=== PATIENT | female | born 1990 | race Caucasian/White ===

== ENCOUNTER 2020-07-08 13:39 | Outpatient (REF) | payer MEDICAID, SELFPAY ==
--- NOTE | ~2020-07-08 | US_ITS ---
EXAMINATION: PELVIC ULTRASOUND CLINICAL INFORMATION: Pelvic pain COMPARISON: Previous pelvic ultrasound May [address] of the abdomen and pelvis March 2014 TECHNIQUE: Transabdominal and transvaginal pelvic ultrasound was performed. Transvaginal exam was performed for better visualization of the uterus and ovaries. FINDINGS: The uterus is anteverted and measures 8 x 3 x 4.3 cm in dimension. No focal uterine lesion is seen. Endometrial thickness is normal measuring 0.7 cm. The cervix is normal appearing. The right ovary measures 3.5 x 2.1 x 3.7 cm. There is a 2.2 x 1.7 x 1.9 cm complex right ovarian cyst with thick echogenic wall and thick septation. The left ovary measures 4.6 x 2.6 x 2.4 cm and is normal-appearing. There is a small amount of fluid in the pelvis. US/US transvaginal IMPRESSION: 2.2 x 1.7 x 1.9 cm complex right ovarian cyst. Small amount of fluid in the pelvis.
--- NOTE | ~2020-07-08 | US_ITS ---
EXAMINATION: PELVIC ULTRASOUND CLINICAL INFORMATION: Pelvic pain COMPARISON: Previous pelvic ultrasound May [address] of the abdomen and pelvis March 2014 TECHNIQUE: Transabdominal and transvaginal pelvic ultrasound was performed. Transvaginal exam was performed for better visualization of the uterus and ovaries. FINDINGS: The uterus is anteverted and measures 8 x 3 x 4.3 cm in dimension. No focal uterine lesion is seen. Endometrial thickness is normal measuring 0.7 cm. The cervix is normal appearing. The right ovary measures 3.5 x 2.1 x 3.7 cm. There is a 2.2 x 1.7 x 1.9 cm complex right ovarian cyst with thick echogenic wall and thick septation. The left ovary measures 4.6 x 2.6 x 2.4 cm and is normal-appearing. There is a small amount of fluid in the pelvis. US/US pelvic complete IMPRESSION: 2.2 x 1.7 x 1.9 cm complex right ovarian cyst. Small amount of fluid in the pelvis.
== END 2020-07-08 13:40 | disposition home or self-care (01) ==
LOC: HO.US 13:39
PROVIDERS: Visit Provider Internal Medicine
DX: R10.2 Pelvic and perineal pain (principal)
CPT/HCPCS: 76830; 76856

== ENCOUNTER 2020-10-06 16:14 | Outpatient (REF) | payer MEDICAID, SELFPAY ==
--- NOTE | ~2020-10-06 | XR_ITS ---
EXAMINATION: XR CERVICAL SPINE CLINICAL INFORMATION: Left skull numbness. COMPARISON: None. TECHNIQUE: 5 views of the cervical spine were obtained. FINDINGS: No prevertebral soft tissue swelling, fractures or subluxations are seen. There is some minimal disc space narrowing seen from C4 through C7. No fractures are seen. Foramina are widely patent bilaterally. XR/XR cervical spine 4V IMPRESSION: Mild degenerative changes seen with some minimal disc space narrowing as described above.
== END 2020-10-06 16:15 | disposition home or self-care (01) ==
LOC: HO.XRAY 16:14
PROVIDERS: PCP Internal Medicine; Visit Provider Emergency Medicine
DX: R20.0 Anesthesia of skin (principal)
CPT/HCPCS: 72050

== ENCOUNTER 2020-12-04 10:33 | Emergency (ER) | payer MEDICAID, SELFPAY ==
--- NOTE | ~2020-12-04 | US_ITS ---
EXAMINATION: US PELVIS CLINICAL INFORMATION: Pain, assess for torsion COMPARISON: 07/08/2020 TECHNIQUE: Ultrasound of the pelvis is performed using both transabdominal and transvaginal transducers along with Doppler. Transvaginal imaging is performed due to inadequate visualization transabdominally. FINDINGS: Uterus: The uterus is anteverted and measures 9.3 x 3.6 x 5.2 cm. No focal lesion The double wall endometrial thickness is 14 mm. The uterus is smooth in contour and has normal myometrial echogenicity. No visible fibroid. Adnexa: Both ovaries are visualized. There is normal color flow to the adnexa. There is no ovarian torsion. There is no pelvic ascites or fluid collection. Right ovary measures 14 mL in an a left ovarian volume measures 19 mL. There is normal arterial and venous flow seen and there is no evidence for any pathologic adnexal lesions. There are follicles noted. Trace physiologic free fluid in the cul-de-sac. US/US pelvic ovarian doppler IMPRESSION: No evidence of any ovarian active torsion or mass.
--- NOTE | ~2020-12-04 | US_ITS ---
EXAMINATION: US PELVIS CLINICAL INFORMATION: Pain, assess for torsion COMPARISON: 07/08/2020 TECHNIQUE: Ultrasound of the pelvis is performed using both transabdominal and transvaginal transducers along with Doppler. Transvaginal imaging is performed due to inadequate visualization transabdominally. FINDINGS: Uterus: The uterus is anteverted and measures 9.3 x 3.6 x 5.2 cm. No focal lesion The double wall endometrial thickness is 14 mm. The uterus is smooth in contour and has normal myometrial echogenicity. No visible fibroid. Adnexa: Both ovaries are visualized. There is normal color flow to the adnexa. There is no ovarian torsion. There is no pelvic ascites or fluid collection. Right ovary measures 14 mL in an a left ovarian volume measures 19 mL. There is normal arterial and venous flow seen and there is no evidence for any pathologic adnexal lesions. There are follicles noted. Trace physiologic free fluid in the cul-de-sac. US/US pelvic and transvaginal IMPRESSION: No evidence of any ovarian active torsion or mass.
[2020-12-04 11:48] VITALS: BP 102/54; PULSE 78; RESP 18; TEMP 36.8; O2SAT 98; BMI 23.8
--- NOTE | 2020-12-04 11:49 | ED.ABDPAIN ---
HPI - Abdominal Pain General Chief Complaint: Abdominal Pain Stated Complaint: abd pain Time Seen by Provider: 12/04/20 11:36 Source: patient Mode of arrival: ambulatory Limitations: no limitations History of Present Illness HPI narrative: 30 y/o female who is , and who is actively wanting to be , presents with 1 day of lower abdominal pain. Reports a crampy heavy feeling in her pelvic area. No fevers, no nausea or vomiting. Patient is sexually active without control. Reports clear vaginal discharge. No concerns for STDs. Reports normal bowel movements, no dysuria. She has history of ovarian cyst, states this feels similar. No abdominal surgeries. MD elicited complaint: abdominal pain Pertinent past history: other (Ovarian cyst) Onset (ago): day(s) (1) Pain Consistency: constant Location: pelvis Severity: moderate Quality: cramping Radiation: none Migration to: no migration Exacerbating factors: nothing Relieving factors: nothing Associated symptoms: denies other symptoms Related Data Date of Last Menstrual Period: 11/22/20 Patient : No Previous Rx's Medication Instructions Recorded doxycycline hyclate 100 mg capsule 100 mg PO BID 14 Days #28 cap 12/04/20 ibuprofen 600 mg tablet 600 mg PO Q8H PRN #30 tab 12/04/20 metronidazole 500 mg tablet 500 mg PO BID 14 Days #28 tab 12/04/20 Allergies Allergy/AdvReac Type Severity Reaction Status Date / Time No Known Allergies Allergy Unverified 01/02/20 17:46 [No Known Allergies*] Review of Systems Review of Systems Constitutional : No Weight loss, No Fever, No Chills, No Night Sweats,No Fatigue, No Malaise ENT/Mouth : No Hearing loss, No Ear Pain, No Nasal Congestion, NoSinus Pain, No Hoarseness, No sore throat, No Rhinorrhea, NoSwallowing Difficulty Eyes: No Eye Pain, No Swelling, No Redness, No Foreign Body, NoDischarge, No Vision Changes Cardiovascular : No Chest Pain, No SOB, No Dyspnea on Exertion, NoOrthopnea, No Edema, No Palpitations Respiratory : No Cough, No Sputum, No Wheezing, No Smoke Exposure, No Dyspnea Gastrointestinal : + abdominal pain, No Nausea, No Vomiting, No Diarrhea, NoConstipation,, No Hematochezia, No Melena Genitourinary :+ pelvic pain, + clear vaginal discharge, no irregular bleeding, No Dysuria, No UrinaryFrequency, No Hematuria, No Urinary Incontinence, No Urgency, No FlankPain, No Urinary Flow Changes, No Hesitancy Musculoskeletal : No joint pain, No Myalgias, No Joint Swelling Skin : No Skin Lesions, No rash Neuro : No Weakness, No Numbness, No Paresthesias, No Loss ofConsciousness, No Dizziness, No Headache Psych : No Anxiety/Panic, No Depression, No SI/HI/AH/VH, No Social Issues, Heme/Lymph: No Bruising, No Bleeding,No Lymphadenopathy Endocrine : No Polyuria, No Polydipsia, No Temperature Intolerance Yes all other systems are reviewed and are negative Physical Exam Vital Signs: Vital Signs: Last Vital Signs Temp 98.2 F 12/04/20 11:48 Pulse 78 12/04/20 11:48 Resp 18 12/04/20 11:48 BP 102/54 L 12/04/20 11:48 Pulse Ox 98 12/04/20 11:48 Body Mass Index 23.8 Const: General: cooperative, no acute distress, well developed, alert and awake Nutritional Appearance: well nourished Orientation/consciousness: patient oriented x3 Limitations: no limitations HENMT: Head: Yes normal to inspection, Yes normocephalic and Yes atraumatic Ears: hearing grossly normal bilaterally, external ears normal, TM's normal bilaterally and EAC's normal General nose exam: Normal external nose present Face and sinus: Yes normal facial exam and Yes sinuses nontender Mouth: Normal oral and palatal mucosa present Throat: Yes posterior oropharynx normal Eyes: Conjunctivae: conjunctivae normal Pupils: Equal, round and reactive pupils present EOM: EOMs intact bilaterally Neck: Neck: Yes full ROM, Yes no lymphadenopathy and Yes supple Resp: Effort & Inspection: normal respiratory effort and able to speak in complete sentences Auscultation: clear to auscultation bilaterally, no crackles, no rales, no rhonchi and no wheezes Cardio: Rate: regular rate Rhythm: regular rhythm Heart sounds: S1 normal heart sound present and S2 normal heart sound present GI: Inspection: Yes normal to inspection Palpation (GI): Soft to palpation, Tenderness to palpation present (GI) other (bilateral lower abd/pelvis), Guarding due to palpation present (GI) (bilteral lower abdomen) and not rigid Percussion: Yes normal to percussion Auscultation: normal bowel sounds : External Female Exam: normal external appearance, normal appearance of the urethra, No erythema, No externally tender, No external swelling and No lesion Speculum Exam - Vagina: normal appearance of the vagina, normal vaginal discharge, no lesions, No vaginal bleeding, no masses and nontender Speculum Exam - Cervix: normal appearance of the cervix and Cervical tenderness present Bimanual exam- vagina & uterus: Cervical tenderness present Bimanual Exam- Adnexa, other: tender (R>L) OB/external & speculum: No vaginal bleeding Skin: General skin exam: no rashes or lesions noted Neuro: General: patient oriented x3, tone normal and moves all extremities Cranial nerves: Yes Equal, round and reactive pupils present Extrem: General: Yes normal to inspection and Yes full ROM Psych: Appearance: grossly normal Affect: normal affect Attitude: cooperative Thought process: Normal thought process present Course Course Course Narrative: A 30-year-old female presents for pelvic pain that started 1 day ago. No fevers, no nausea or vomiting. On exam, patient is well-appearing. Vitals are stable. Bimanual exam shows cervical motion tenderness and right adnexal tenderness. Got GC/Chlamydia, BV, trich, yeast. Sent for pelvic transvaginal US Pelvic ultrasound shows normal blood flow, no torsion, no mass, no cyst. Patient is not , urine is negative, labs are unremarkable. No trich or yeast seen. Patient did have cervical motion tenderness, will treat for PID. MDM - Abdominal Pain Lab Data Result diagrams: 12/04/20 12:53 12/04/20 12:53 Labs: Lab Results 12/04/20 12/04/20 12/04/20 Range/Units 12:08 12:08 12:43 WBC (4.8-10.8) X10*3/uL RBC (4.20-5.50) X10*6/uL Hgb (12.0-16.0) g/dl Hct (37-47) % MCV (80-98) fL MCH (27.0-33.0) pg MCHC (31.0-35.0) g/dl RDW (11.0-16.0) % Plt Count (160-400) X10*3/uL MPV (9.4-12.3) fL Immature Gran % (Auto) (0.0-0.4) % Neut % (Auto) (45-73) % Lymph % (Auto) (20-40) % [place] % (Auto) (2-11) % Eos % (Auto) (0-4) % Baso % (Auto) (0-2) % Lymph # (Auto) (1.2-4.9) X10*3/uL [place] # (Auto) (0.1-1.2) X10*3/uL Eos # (Auto) (0.0-0.4) X10*3/uL Baso # (Auto) (0.0-0.2) X10*3/uL Abs Immat Gran (auto) (0.00-0.03) X10*3/uL Absolute Neuts (auto) (2.0-8.3) X10*3/uL Absolute Nucleated RBC (0.0-0.012) X10*3/uL Nucleated RBC % (auto) (0.0-0.2) /100WBC Sodium (135-145) mmol/L Potassium (3.3-5.1) mmol/L Chloride (96-108) mmol/L Carbon Dioxide (22-29) mmol/L Anion Gap (12-20) BUN (9-16) mg/dL Creatinine (0.5-1.4) mg/dL Estim Creat Clear Calc Estimated GFR Random Glucose (60-115) mg/dL Calcium (8.4-10.2) mg/dL Total Bilirubin (0.0-1.0) mg/dL AST (5-31) U/L ALT (0-31) U/L Alkaline Phosphatase (39-117) U/L Total Protein (6.5-8.0) g/dL Albumin (3.5-5.0) g/dL Urine Color STRAW Urine Appearance CLEAR Urine pH 7.0 (5.0-8.0) Ur Specific [place] 1.010 (1.005-1.025) Urine Protein NEG (NEG-TRACE) MG/DL Urine Glucose (UA) NEG (NEG) MG/DL Urine Ketones NEG (NEG) MG/DL Urine Blood NEG (NEG) Urine Nitrite NEG (NEG) Ur Leukocyte Esterase NEG (NEG) Urine Test NEGATIVE (NEGATIVE) Chlam trachomat DNA PCR NOT DETECTED (Not Detect.) N.gonorrhoeae DNA (PCR) NOT DETECTED (Not Detect.) 12/04/20 12/04/20 Range/Units 12:53 12:53 WBC 6.2 (4.8-10.8) X10*3/uL RBC 4.22 (4.20-5.50) X10*6/uL Hgb 12.6 (12.0-16.0) g/dl Hct 37.4 (37-47) % MCV 88.6 (80-98) fL MCH 29.9 (27.0-33.0) pg MCHC 33.7 (31.0-35.0) g/dl RDW 11.9 (11.0-16.0) % Plt Count 226 (160-400) X10*3/uL MPV 10.4 (9.4-12.3) fL Immature Gran % (Auto) 0.3 (0.0-0.4) % Neut % (Auto) 68.0 (45-73) % Lymph % (Auto) 23.4 (20-40) % [place] % (Auto) 6.7 (2-11) % Eos % (Auto) 1.3 (0-4) % Baso % (Auto) 0.3 (0-2) % Lymph # (Auto) 1.5 (1.2-4.9) X10*3/uL [place] # (Auto) 0.4 (0.1-1.2) X10*3/uL Eos # (Auto) 0.1 (0.0-0.4) X10*3/uL Baso # (Auto) 0.0 (0.0-0.2) X10*3/uL Abs Immat Gran (auto) 0.02 (0.00-0.03) X10*3/uL Absolute Neuts (auto) 4.2 (2.0-8.3) X10*3/uL Absolute Nucleated RBC 0.000 (0.0-0.012) X10*3/uL Nucleated RBC % (auto) 0.0 (0.0-0.2) /100WBC Sodium 138 (135-145) mmol/L Potassium 4.1 (3.3-5.1) mmol/L Chloride 108 (96-108) mmol/L Carbon Dioxide 25 (22-29) mmol/L Anion Gap 9 L (12-20) BUN 7 L (9-16) mg/dL Creatinine 0.71 (0.5-1.4) mg/dL Estim Creat Clear Calc 92.4 Estimated GFR > 60 Random Glucose 79 (60-115) mg/dL Calcium 9.1 (8.4-10.2) mg/dL Total Bilirubin 0.6 (0.0-1.0) mg/dL AST 11 (5-31) U/L ALT 7 (0-31) U/L Alkaline Phosphatase 38 L (39-117) U/L Total Protein 6.8 (6.5-8.0) g/dL Albumin 3.9 (3.5-5.0) g/dL Urine Color Urine Appearance Urine pH (5.0-8.0) Ur Specific [place] (1.005-1.025) Urine Protein (NEG-TRACE) MG/DL Urine Glucose (UA) (NEG) MG/DL Urine Ketones (NEG) MG/DL Urine Blood (NEG) Urine Nitrite (NEG) Ur Leukocyte Esterase (NEG) Urine Test (NEGATIVE) Chlam trachomat DNA PCR (Not Detect.) N.gonorrhoeae DNA (PCR) (Not Detect.) Discharge Plan Discharge Clinical Impression: Acute pelvic inflammatory disease (PID) Patient Disposition: Home, Self-Care Instructions: Pelvic Inflammatory Disease (ED) Additional Instructions: Please fill the prescriptions for the 2 antibiotics I gave you and take them for the next 2 weeks. Please also fill the prescription for ibuprofen, and take that for the next week. We will call you if the vaginal swabs that we did today came back positive for anything. Please return if you have worsening pelvic or abdominal pain, fevers, or any other new or concerning symptoms. Prescriptions: New doxycycline hyclate 100 mg capsule 100 mg PO BID 14 Days Qty: 28 RF: 0 metronidazole 500 mg tablet 500 mg PO BID 14 Days Qty: 28 RF: 0 ibuprofen 600 mg tablet 600 mg PO Q8H PRN (Reason: pain) Qty: 30 RF: 0 Interventions: ED Discharge Assessment Last Done: 12/04/20 14:48 Discharge Date/Time: 12/04/20 14:48 [facility] Past Medical History Medical History (Updated 12/04/20 @ 14:07 by FENG Decker) No known health problems Date of Last Menstrual Period: 11/22/20 Social History Social History Advance Directives: No Advance Directives Information Provided: No Patient : No
[2020-12-04 12:24] LABS: UPreg QC Valid YES; Urine Pregnancy NEGATIVE (NEGATIVE)
[2020-12-04 12:25] LABS: Glucose Urine UA NEG (NEG); Leukocyte Esterase Urine NEG (NEG); Nitrite Urine NEG (NEG); Urine Blood NEG (NEG); Urine Ketones NEG (NEG); Urine Protein NEG (NEG-TRACE)
[2020-12-04 12:26] LABS: Appearance Urine CLEAR; Color Urine STRAW
--- NOTE | 2020-12-04 12:49 | PC.NURSE ---
This database report writer chaperoned pelvic exam performed by Karma TONEY. Pt tolerated well.
[2020-12-04 12:59] LABS: MANUAL DIFF FLAG NO
[2020-12-04 13:00] LABS: Basophils Percent Auto 0.3 % (0-2); Eosinophils Absolute Auto 0.1 X10*3/uL (0.0-0.4); Eosinophils Percent Auto 1.3 % (0-4); Hematocrit 37.4 % (37-47); Hemoglobin 12.6 g/dl (12.0-16.0); Imm Gran Abs Auto 0.02 X10*3/uL (0.00-0.03); Imm Gran Pct Auto 0.3 % (0.0-0.4); Lymphocytes Absolute Auto 1.5 X10*3/uL (1.2-4.9); Lymphocytes Percent Auto 23.4 % (20-40); Mean Corpuscular HGB Conc 33.7 g/dl (31.0-35.0); Mean Corpuscular Hemoglobin 29.9 pg (27.0-33.0); Mean Corpuscular Volume 88.6 fL (80-98); Mean Platelet Volume 10.4 fL (9.4-12.3); Monocytes Absolute Auto 0.4 X10*3/uL (0.1-1.2); Monocytes Percent Auto 6.7 % (2-11); Neutrophils Absolute Auto 4.2 X10*3/uL (2.0-8.3); Platelet Count 226 X10*3/uL (160-400); Red Blood Count 4.22 X10*6/uL (4.20-5.50); Red Cell Distribution Width 11.9 % (11.0-16.0); White Blood Count 6.2 X10*3/uL (4.8-10.8)
[2020-12-04 13:31] LABS: Alanine Aminotransferase 7 U/L (0-31); Albumin Level 3.9 g/dL (3.5-5.0); Alkaline Phosphatase 38 U/L (39-117); Anion Gap 9 (12-20); Aspartate Amino Transferase 11 U/L (5-31); Bilirubin Total 0.6 mg/dL (0.0-1.0); Blood Urea Nitrogen 7 mg/dL (9-16); Calcium 9.1 mg/dL (8.4-10.2); Carbon Dioxide 25 mmol/L (22-29); Chloride 108 mmol/L (96-108); Creatinine Clr Calc Pharmacy 92.4; Estimated Glomerular Filt Rate > 60; Glucose Random 79 mg/dL (60-115); Potassium 4.1 mmol/L (3.3-5.1); Sodium 138 mmol/L (135-145); Total Protein 6.8 g/dL (6.5-8.0)
[2020-12-04] MEDS: cefTRIAXone sodium 500 MG, Lidocaine HCl 1 % MPF 1 ML IM (14:16)
[2020-12-04] MEDS: Ketorolac Tromethamine 15 MG/ML VIAL IM (14:17)
[2020-12-04 14:27] LABS: CT PCR NOT DETECTED (Not Detect.); NG PCR NOT DETECTED (Not Detect.)
== END 2020-12-04 14:48 | disposition home or self-care (01) ==
PROVIDERS: Physician Assistant; Emergency Provider Internal Medicine; PCP Internal Medicine
DX: N73.0 Acute parametritis and pelvic cellulitis (principal); R10.30 Lower abdominal pain, unspecified
CPT/HCPCS: 36415; 76830; 76856; 80053; 81003; 81025; 85025; 87480; 87491; 87510; 87591; 87660; 93975; 96365; 96372; 99283; 99284; J0696; J1885

== ENCOUNTER 2021-07-30 19:46 | Emergency (ER) | payer MEDICAID, SELFPAY ==
--- NOTE | ~2021-07-30 | XR_ITS ---
EXAMINATION: XR CHEST CLINICAL INFORMATION: Chest pain COMPARISON: 02/20/2010 TECHNIQUE: Frontal view of the chest was obtained. FINDINGS: The lungs are well expanded. No consolidation, edema, or effusion. No pneumothorax. The cardiomediastinal silhouette is within normal limits. No acute osseous abnormality. XR/XR chest 1V IMPRESSION: Clear lungs.
[2021-07-30 19:52] VITALS: BP 110/67; PULSE 72; RESP 14; TEMP 36.8; O2SAT 97; BMI 24.1
--- NOTE | 2021-07-30 19:55 | ECG_ITS ---
Test Reason : CHEST PAIN Blood Pressure : / mmHG Vent. Rate : 075 BPM Atrial Rate : 075 BPM P-R Int : 108 ms QRS Dur : 068 ms QT Int : 368 ms P-R-T Axes : 042 074 064 degrees QTc Int : 410 ms Sinus rhythm with short [place] Otherwise normal ECG When compared with ECG of 26-SEP-2016 21:08, No significant change was found Referred By: Generic ED Physician Electronically Signed By:Jersey Guidry
[2021-07-30 20:21] LABS: MANUAL DIFF FLAG NO
[2021-07-30 20:28] LABS: Basophils Percent Auto 0.6 % (0-2); Eosinophils Absolute Auto 0.1 X10*3/uL (0.0-0.4); Eosinophils Percent Auto 2.5 % (0-4); Hematocrit 38.3 % (37.0-47.0); Imm Gran Abs Auto 0.01 X10*3/uL (0.00-0.03); Imm Gran Pct Auto 0.2 % (0.0-0.4); Lymphocytes Absolute Auto 2.1 X10*3/uL (1.2-4.9); Lymphocytes Percent Auto 39.5 % (20-40); Mean Corpuscular HGB Conc 33.9 g/dl (31.0-35.0); Mean Corpuscular Hemoglobin 29.7 pg (27.0-33.0); Mean Corpuscular Volume 87.6 fL (80.0-98.0); Mean Platelet Volume 10.6 fL (9.4-12.3); Monocytes Absolute Auto 0.4 X10*3/uL (0.1-1.2); Monocytes Percent Auto 7.3 % (2-11); Neutrophils Absolute Auto 2.6 x10*3/uL (2.0-8.3); Neutrophils Percent Auto 49.9 % (45-73); Platelet Count 250 X10*3/uL (160-400); Red Blood Count 4.37 X10*6/uL (4.20-5.50); Red Cell Distribution Width 11.7 % (11.0-16.0); White Blood Count 5.2 X10*3/uL (4.8-10.8)
[2021-07-30 20:46] LABS: Anion Gap 13 (12-20); Blood Urea Nitrogen 10 mg/dL (9-16); Calcium 9.2 mg/dL (8.4-10.2); Carbon Dioxide 23 mmol/L (22-29); Chloride 108 mmol/L (96-108); Creatinine Clr Calc Pharmacy 85.3; Estimated Glomerular Filt Rate > 60; Glucose Random 88 mg/dL (60-115); Potassium 4.1 mmol/L (3.3-5.1); Sodium 140 mmol/L (135-145)
[2021-07-30 20:53] LABS: Troponin-I High Sensitivity < 3.5 ng/L (<3.5-17.0)
[2021-07-31] VITALS: BP 113/63; PULSE 66; RESP 20; TEMP 36.9; O2SAT 100
--- NOTE | 2021-07-31 00:15 | PC.NURSE ---
pt states she has 8/10 left sided chest pain rad to left arm for 3 days, vital, labs wnl. pt skin pnk warm and dry no s/s of distress. pt on her phone.
--- NOTE | 2021-07-31 01:10 | ED.CHESTPAIN ---
HPI - Chest Pain General Chief Complaint: Chest Pain Stated Complaint: Chest pain Time Seen by Provider: 07/31/21 01:10 Source: patient Mode of arrival: ambulatory History of Present Illness HPI narrative: 30-year-old female without significant past medical history, denies any history of cigarette smoking or alcohol use and denies any drug use who presents with 5 days sharp substernal chest discomfort that worsens with deep inspiration as well as with movement. She denies any associated trauma or physical assault and also denies any sore throat, cough, shortness of breath, GI or symptoms. Related Data Previous Rx's Medication Instructions Recorded doxycycline hyclate 100 mg capsule 100 mg PO BID 14 Days #28 cap 12/04/20 ibuprofen 600 mg tablet 600 mg PO Q8H PRN #30 tab 12/04/20 metronidazole 500 mg tablet 500 mg PO BID 14 Days #28 tab 12/04/20 Allergies Allergy/AdvReac Type Severity Reaction Status Date / Time No Known Allergies Allergy Unverified 01/02/20 17:46 [No Known Allergies*] Review of Systems Review of Systems: Pertinent positives and negatives as stated in HPI 10 point review of systems otherwise negative. PMFSH Past Medical History Source: nursing notes reviewed Medical History No known health problems Social History Social History Advance Directives: No Physical Exam Vital Signs: Vital Signs: Last Vital Signs Temp 98.4 F 07/31/21 00:00 Pulse 66 07/31/21 00:00 Resp 20 07/31/21 00:00 BP 113/63 07/31/21 00:00 Pulse Ox 100 07/31/21 00:00 BMI result Body Mass Index 24.1 VITAL SIGNS: Reviewed. GENERAL: Well developed, well nourished, in no acute distress. HEAD: Normocephalic/atraumatic EYES: PERRLA, EOMI EARS: Ext canals without abnormality OROPHARYNX: no oral lesions noted, posterior pharynx clear LUNGS: Normal breath sounds, no tachypnea, no wheeze/ rhonchi /rales. SpO2<100> CARDIOVASCULAR: Regular rate and rhythm without noted murmurs ABDOMEN: Soft, non-tender, non-distended with bowel sounds. MUSCULOSKELETAL: No tenderness, deformities, or effusions noted on gross inspection. EXTREMITIES: No cyanosis, clubbing or edema. SKIN: Inspection of the skin reveals no rashes NEUROLOGIC: Alert and oriented x 4. Strength and sensation to light touch were grossly intact x 4. Course Course Course Narrative: 30-year-old female with history and clinical presentation consistent with atypical chest pain, PERC negative, no evidence to suggest acute respiratory symptoms, and review of all investigations negative for acute findings. Patient was provided with combination analgesics and doubt pericarditis and will discharged home in stable condition with presumptive diagnosis of costochondritis. MDM - Chest Pain Lab Data Result diagrams: 07/30/21 20:17 07/30/21 20:17 Labs: Lab Results 07/30/21 07/30/21 07/30/21 Range/Units 20:17 20:17 20:17 WBC 5.2 (4.8-10.8) X10*3/uL RBC 4.37 (4.20-5.50) X10*6/uL Hgb 13.0 (12.0-16.0) g/dl Hct 38.3 (37.0-47.0) % MCV 87.6 (80.0-98.0) fL MCH 29.7 (27.0-33.0) pg MCHC 33.9 (31.0-35.0) g/dl RDW 11.7 (11.0-16.0) % Plt Count 250 (160-400) X10*3/uL MPV 10.6 (9.4-12.3) fL Immature Gran % (Auto) 0.2 (0.0-0.4) % Neut % (Auto) 49.9 (45-73) % Lymph % (Auto) 39.5 (20-40) % [place] % (Auto) 7.3 (2-11) % Eos % (Auto) 2.5 (0-4) % Baso % (Auto) 0.6 (0-2) % Lymph # (Auto) 2.1 (1.2-4.9) X10*3/uL [place] # (Auto) 0.4 (0.1-1.2) X10*3/uL Eos # (Auto) 0.1 (0.0-0.4) X10*3/uL Baso # (Auto) 0.0 (0.0-0.2) X10*3/uL Abs Immat Gran (auto) 0.01 (0.00-0.03) X10*3/uL Absolute Neuts (auto) 2.6 (2.0-8.3) x10*3/uL Absolute Nucleated RBC 0.000 (0.0-0.012) X10*3/uL Nucleated RBC % (auto) 0.0 (0.0-0.2) /100WBC Sodium 140 (135-145) mmol/L Potassium 4.1 (3.3-5.1) mmol/L Chloride 108 (96-108) mmol/L Carbon Dioxide 23 (22-29) mmol/L Anion Gap 13 (12-20) BUN 10 (9-16) mg/dL Creatinine 0.77 (0.5-1.4) mg/dL Estim Creat Clear Calc 85.3 Estimated GFR > 60 Random Glucose 88 (60-115) mg/dL Calcium 9.2 (8.4-10.2) mg/dL Troponin I High Sens < 3.5 (<3.5-17.0) ng/L Discharge Plan Discharge Clinical Impression: Atypical chest pain, Costalchondritis Patient Disposition: Home, Self-Care Instructions: Chest Wall Pain (ED), Costochondritis (ED) Additional Instructions: 1. Tylenol 1000 mg, por v?a oral, cada 6 horas seg?n sea necesario para controlar el dolor. No exceda los 4000 mg dentro de las 24 horas. 2. Ibuprofeno 400 mg, por v?a oral con leche o comida, cada 6 horas seg?n sea necesario para controlar el dolor. 3. Puede considerar el parche de lidoca?na, estos est?n disponibles sin receta, aplicar en el ?deepthi de m?xima sensibilidad ame se indica en el empaque exterior. 4. Jesus un seguimiento con castillo proveedor de atenci?n primaria en los pr?ximos 2 a 3 d?as para roberta reevaluaci?n. Regrese a la laura de emergencias si los s?ntomas empeoran. Prescriptions: No Action doxycycline hyclate 100 mg capsule 100 mg PO BID 14 Days Qty: 28 0RF metronidazole 500 mg tablet 500 mg PO BID 14 Days Qty: 28 0RF ibuprofen 600 mg tablet 600 mg PO Q8H PRN (Reason: pain) Qty: 30 0RF Referrals: [facility] [Primary Care Provider] - Print Language: Micronesian
--- NOTE | 2021-07-31 01:16 | ED.CHESTPAIN ---
HPI - Chest Pain General Chief Complaint: Chest Pain Stated Complaint: Chest pain Time Seen by Provider: 07/31/21 01:10 Source: patient Mode of arrival: ambulatory Related Data Previous Rx's Medication Instructions Recorded doxycycline hyclate 100 mg capsule 100 mg PO BID 14 Days #28 cap 12/04/20 ibuprofen 600 mg tablet 600 mg PO Q8H PRN #30 tab 12/04/20 metronidazole 500 mg tablet 500 mg PO BID 14 Days #28 tab 12/04/20 Allergies Allergy/AdvReac Type Severity Reaction Status Date / Time No Known Allergies Allergy Unverified 01/02/20 17:46 [No Known Allergies*] [facility] Past Medical History Medical History No known health problems Social History Social History Advance Directives: No Physical Exam Vital Signs: Vital Signs: Last Vital Signs Temp 98.4 F 07/31/21 00:00 Pulse 66 07/31/21 00:00 Resp 20 07/31/21 00:00 BP 113/63 07/31/21 00:00 Pulse Ox 100 07/31/21 00:00 BMI result Body Mass Index 24.1 MDM - Chest Pain Lab Data Result diagrams: 07/30/21 20:17 07/30/21 20:17 Labs: Lab Results 07/30/21 07/30/21 07/30/21 Range/Units 20:17 20:17 20:17 WBC 5.2 (4.8-10.8) X10*3/uL RBC 4.37 (4.20-5.50) X10*6/uL Hgb 13.0 (12.0-16.0) g/dl Hct 38.3 (37.0-47.0) % MCV 87.6 (80.0-98.0) fL MCH 29.7 (27.0-33.0) pg MCHC 33.9 (31.0-35.0) g/dl RDW 11.7 (11.0-16.0) % Plt Count 250 (160-400) X10*3/uL MPV 10.6 (9.4-12.3) fL Immature Gran % (Auto) 0.2 (0.0-0.4) % Neut % (Auto) 49.9 (45-73) % Lymph % (Auto) 39.5 (20-40) % [place] % (Auto) 7.3 (2-11) % Eos % (Auto) 2.5 (0-4) % Baso % (Auto) 0.6 (0-2) % Lymph # (Auto) 2.1 (1.2-4.9) X10*3/uL [place] # (Auto) 0.4 (0.1-1.2) X10*3/uL Eos # (Auto) 0.1 (0.0-0.4) X10*3/uL Baso # (Auto) 0.0 (0.0-0.2) X10*3/uL Abs Immat Gran (auto) 0.01 (0.00-0.03) X10*3/uL Absolute Neuts (auto) 2.6 (2.0-8.3) x10*3/uL Absolute Nucleated RBC 0.000 (0.0-0.012) X10*3/uL Nucleated RBC % (auto) 0.0 (0.0-0.2) /100WBC Sodium 140 (135-145) mmol/L Potassium 4.1 (3.3-5.1) mmol/L Chloride 108 (96-108) mmol/L Carbon Dioxide 23 (22-29) mmol/L Anion Gap 13 (12-20) BUN 10 (9-16) mg/dL Creatinine 0.77 (0.5-1.4) mg/dL Estim Creat Clear Calc 85.3 Estimated GFR > 60 Random Glucose 88 (60-115) mg/dL Calcium 9.2 (8.4-10.2) mg/dL Troponin I High Sens < 3.5 (<3.5-17.0) ng/L ECG Data ECG #1: Attestation: I personally reviewed and interpreted this ECG as follows: Prior ECG tracings: available for review Interpretation: NSR, HR- 75, no STEMI, short [place] -108, QRS/QTC are within normal limits. Discharge Plan Discharge Clinical Impression: Atypical chest pain, Costalchondritis Patient Disposition: Home, Self-Care Instructions: Costochondritis (ED), Chest Wall Pain (ED) Additional Instructions: 1. Tylenol 1000 mg, por v?a oral, cada 6 horas seg?n sea necesario para controlar el dolor. No exceda los 4000 mg dentro de las 24 horas. 2. Ibuprofeno 400 mg, por v?a oral con leche o comida, cada 6 horas seg?n sea necesario para controlar el dolor. 3. Puede considerar el parche de lidoca?na, estos est?n disponibles sin receta, aplicar en el ?deepthi de m?xima sensibilidad ame se indica en el empaque exterior. 4. Jesus un seguimiento con castillo proveedor de atenci?n primaria en los pr?ximos 2 a 3 d?as para roberta reevaluaci?n. Regrese a la laura de emergencias si los s?ntomas empeoran. Prescriptions: No Action doxycycline hyclate 100 mg capsule 100 mg PO BID 14 Days Qty: 28 0RF metronidazole 500 mg tablet 500 mg PO BID 14 Days Qty: 28 0RF ibuprofen 600 mg tablet 600 mg PO Q8H PRN (Reason: pain) Qty: 30 0RF Referrals: [facility] [Primary Care Provider] - Print Language: Nepali
[2021-07-31] MEDS: Acetaminophen 325 MG TABLET 975 MG PO (01:18)
[2021-07-31] MEDS: Ibuprofen 400 MG TABLET PO (01:19)
[2021-07-31 01:20] VITALS: BP 108/59; PULSE 63; RESP 16; O2SAT 100
== END 2021-07-31 01:26 | disposition home or self-care (01) ==
PROVIDERS: Emergency Provider Student in an Organized Health Care Education/Training Program
DX: M94.0 Chondrocostal junction syndrome [Tietze] (principal); R07.89 Other chest pain; Z87.891 Personal history of nicotine dependence; Z79.899 Other long term (current) drug therapy
CPT/HCPCS: 36415; 71045; 80048; 84484; 85025; 93005; 99283; 99284

== ENCOUNTER 2022-10-01 14:44 | Emergency (ER) | payer MEDICAID, SELFPAY ==
--- NOTE | 2022-10-01 14:56 | ED_ITS ---
HPI - General Adult General Chief complaint: Urogenital-Female Stated complaint: UTI Time Seen by Provider: 10/01/22 15:12 Source: patient Mode of arrival: ambulatory Limitations: no limitations History of Present Illness HPI narrative: 31y female with history of left fallopian tube removal (1 yr ago), here with complaints of foul smelling urine, dysuria, lower back pain, suprapubic discomfort x 1 week. No flank pain, fever, vomiting, vag discharge, rashes or lesions. No concern for STI Related Data Previous Rx's Medication Instructions Recorded doxycycline hyclate 100 mg capsule 100 mg PO BID 14 days #28 caps 12/04/20 ibuprofen 600 mg tablet 600 mg PO Q8H PRN pain #30 tabs 12/04/20 metronidazole 500 mg tablet 500 mg PO BID 14 days #28 tabs 12/04/20 nitrofurantoin 100 mg PO Q12H 5 days #10 caps 10/01/22 monohydrate/macrocrystals 100 mg capsule (Macrobid) phenazopyridine 200 mg tablet 200 mg PO TID 6 doses #6 tabs 10/01/22 (Pyridium) Allergies Allergy/AdvReac Type Severity Reaction Status Date / Time No Known Allergies Allergy Verified 10/01/22 14:56 [No Known Allergies*] Review of Systems Review of Systems: Yes all other systems are reviewed and are negative Constitutional: Constitutional: Reports no additional constitutional complaints, Denies body ache(s), Denies chills, Denies fever(s), Denies headache(s) and Denies weakness Eyes: Eyes: Reports no additional eye complaints and Denies change in vision ENT: Reports system reviewed and no additional complaints, except as documented, Denies dizziness, Denies headache(s), Denies nasal congestion, Denies nasal discharge and Denies neck pain Cardiovascular: Cardiovascular: Reports no additional cardiovascular complaints, Denies chest pain, Denies leg edema and Denies dyspnea Respiratory: Respiratory: Reports no additional respiratory complaints, Denies cough and Denies dyspnea Gastrointestinal: Gastrointestinal: Reports no additional gastrointestinal complaints, Denies abdominal pain, Denies diarrhea, Denies nausea and Denies vomiting Genitourinary: Genitourinary: Reports no additional female genitourinary complaints and Denies urinary incontinence Musculoskeletal: Musculoskeletal: Reports no additional musculoskeletal com plaints, Denies back pain, Denies arthralgias, Denies joint swelling, Denies neck pain, Denies numbness and Denies tingling Integumentary/Breasts: Skin/Breast: Reports system reviewed and no additional complaints, except as docu and Denies rash Neurologic: Reports system reviewed and no additional complaints, except as documented, Denies dizziness, Denies headache(s), Denies numbness, Denies tingling and Denies weakness PMFSH Past Medical History Attestation statement: The following information was validated with the patient. Source: old records reviewed and nursing notes reviewed Medical History No known health problems Social History Social History Advance Directives: No Advance Directives Information Provided: No Physical Exam ED Vital Signs: Vital Signs - 24 hr 10/01/22 14:57 Temperature 97.8 F Pulse Rate 73 Respiratory Rate 18 Blood Pressure 107/64 Pulse Oximetry 98 Oxygen Delivery Method Room Air BMI result Body Mass Index 23.9 Const General: cooperative, healthy appearing, comfortable and no acute distress Orientation/consciousness: patient oriented x3 Limitations: no limitations HENMT Head: Yes normal to inspection Ears: hearing grossly normal bilaterally Eyes General: appearance normal, both eyes and all related structures Pupils: Equal, round and reactive pupils present Neck Neck: Yes normal visual inspection Chest Chest palpation & inspection: normal inspection of the chest Resp Effort & Inspection: normal respiratory effort Auscultation: clear to auscultation bilaterally Cardio Rate: regular rate Rhythm: regular rhythm Peripheral pulses: Peripheral pulses 2+ throughout GI Inspection: Yes normal to inspection Palpation (GI): Soft to palpation and nontender General: Yes no CVA tenderness Back/Spine/Pelvis Back: no CVA tenderness Skin General skin exam: no rashes or lesions noted Neuro General: patient oriented x3 and moves all extremities Cranial nerves: Yes Equal, round and reactive pupils present Cognition (Neuro): normal cognition Gait exam (Neuro): Normal gait present Extrem General: Yes normal to inspection Course Course Course Narrative: This is an RME: Additional HPI, ROS, PE not included below will be deferred to primary provider. Patient is a 31 year old female with no significant medical history who presents with 1 week of urinary frequency, urgency, foul smelling urine and lower back pain. Denies fevers, chills, nausea, vomiting, abdominal pain. PE- Negative for CVA tenderness bilaterally Plan urine, urine . Reevaluation(s) Reevaluation #1: UA consistent with urinary tract infection. Urine negative. Will treat with course of antibiotics, Pyridium p.r.n.. Reviewed worrisome signs and symptoms of when to return to the emergency room. Comfortable plan for discharge home. Medical Decision Making Medical Decision Making [facility] Narrative: 31-year-old female here with 1 week of UTI symptoms as well as lower abdominal discomfort and low back pain. Patient with low concern for STI Patient with no focal tenderness, no CVA tenderness, nontoxic appearing Will send UA, urine pressed Differential Diagnosis Differential Diagnoses: The differential diagnosis associated with the presentation includes STI, UTI, pyelo, renal colic, HSV Lab Data [facility] Lab Attestation statement: I reviewed the patient's lab results. Labs: Lab Results 10/01/22 10/01/22 Range/Units 15:07 15:07 Urine Color Yellow Urine Appearance Cloudy Urine pH 5.5 (5.0-9.0) Ur Specific Center Line >= 1.030 H (1.005-1.025) Urine Protein 30 (1+) H (Neg-Trace) mg/dL Urine Glucose (UA) Negative (Negative) mg/dL Urine Ketones 15 (Negative) mg/dL Urine Blood Negative (Negative) Urine Nitrite Negative (Negative) Ur Leukocyte Esterase Moderate (2+) H (Negative) Urine RBC 3-5 H (0-2) /HPF Urine WBC >50 H (0-5) /HPF Ur Squamous Epith Cells 3-5 (0-2) /HPF Urine Bacteria None Seen (None Seen) Hyaline Casts 0-2 (0-2) /LPF Urine Test NEGATIVE (NEGATIVE) Discharge Plan Discharge Clinical Impression: Urinary tract infection Patient Disposition: Home, Self-Care Instructions: Urinary Tract Infection in Women (DC) Additional Instructions: Increase fluids at home Return for vomiting, fever >100.4, high back pain Prescriptions: New nitrofurantoin monohyd/m-cryst [Macrobid] 100 mg capsule 100 mg PO Q12H 5 Days Qty: 10 0RF Rx Instructions: must administer with a meal/food phenazopyridine [Pyridium] 200 mg tablet 200 mg PO TID Qty: 6 0RF No Action doxycycline hyclate 100 mg capsule 100 mg PO BID 14 Days Qty: 28 0RF metronidazole 500 mg tablet 500 mg PO BID 14 Days Qty: 28 0RF ibuprofen 600 mg tablet 600 mg PO Q8H PRN (Reason: pain) Qty: 30 0RF Referrals: Physician,Unknown J [Physician] - 1 week
[2022-10-01 14:57] VITALS: BP 107/64; PULSE 73; RESP 18; TEMP 36.6; O2SAT 98; BMI 23.9
[2022-10-01 15:16] LABS: Appearance Urine Cloudy; Color Urine Yellow; Glucose Urine UA Negative (Negative); Leukocyte Esterase Urine Moderate (2+) (Negative); Nitrite Urine Negative (Negative); PH 5.5 (5.0-9.0); Specific Gravity - Urine >= 1.030 (1.005-1.025); UMIC TRIGGER UACC YES; UPreg QC Valid YES; Urine Blood Negative (Negative); Urine Ketones 15 mg/dL (Negative); Urine Pregnancy NEGATIVE (NEGATIVE); Urine Protein 30 (1+) mg/dL (Neg-Trace)
[2022-10-01 15:21] LABS: Bacteria Urine None Seen (None Seen); Hyaline Casts Urine 0-2 /LPF (0-2); UACC Culture Trigger YES; WBC Urine >50 /HPF (0-5)
--- OUTSIDE RECORDS SUMMARY | 2022-10-01 15:26 | XMS_ITS | Continuity of Care Document ---
Author Name Unknown Organization [facility] e Medicine Address [address] [place] [address]- Care Team Providers Care Welt Butter Hand Name Role Phone Not on Staff, PCP Primary Care Physician Unavail able [place] [facility] [place] 12/01/21 - 12/31/21 [facility] Reproductive Medicine [address] [place] [id number] Allergies, Adverse Reactions, Alerts No Known Medication Allergies Medications Daily Multi 1 tablet, By Mouth, Daily, 0 Refills, Maintenance, 08/21/18 13:20:39 EDT Start Date: 08/21/18 Status: Ordered Folic Acid Daily, 0 Refills, Maintenance, 08/21/18 13:20:46 EDT Start Date: 08/21/18 Status: Ordered Prometrium 200 mg oral capsule 1 capsule = 200 mg, Vaginally, 2 times a day, starting 4 days after positive LH surge., # 60 capsule, 5 Refills, Maintenance, 08/21/18 14:22:49 EDT Start Date: 08/21/18 Status: Ordered Vitamin D3 oral tablet 2 tablet = 800 International_Units, By Mouth, Daily, 0 Refills, Maintenance, 08/21/18 13:20:30 EDT Start Date: 08/21/18 Status: Ordered Zolpidem Daily at bedtime, 0 Refills, Maintenance, 08/21/18 13:20:55 EDT Start Date: 08/21/18 Status: Ordered Problem List Condition Effective Dates Status Health Status Inform ant Secondary tubal infertility(Confirmed) Active Social History Social History Type Response Smoking Status Never (less than 100 in lifetime) entered on: 08/21/18 Sex Care Team Personnel Name: Not on Staff, PCP
--- OUTSIDE RECORDS SUMMARY | 2022-10-01 15:26 | XMS_ITS | Continuity of Care Document ---
Author Name Unknown Organization [facility] e Medicine Address Unknown Care Team Providers Care Cryptozoologist Name Role Phone Not on Staff, PCP Primary Care Physician Unavail able [place] [facility] [place] 06/14/21 - 07/14/21 [facility] Reproductive Medicine Allergies, Adverse Reactions, Alerts No Known Medication Allergies Medications Daily Multi 1 tablet, By Mouth, Daily, 0 Refills, Maintenance, 08/21/18 13:20:39 EDT Start Date: 08/21/18 Status: Ordered doxycycline hyclate 100 mg oral capsule 1 capsule = 100 mg, By Mouth, Every 12 hours, for 10 days, may take with food to minimize abdominaldiscomfort, # 20 capsule, 0 Refills, Acute 07/18/21 15:51:00 EDT, 07/08/21 15:51:00 EDT, Capsule, [facility], Partial fill upon pat... Start Date: 07/08/21 Stop Date: 07/18/21 Status: Ordered Folic Acid Daily, 0 Refills, [...] 13:20:55 EDT Start Date: 08/21/18 Status: Ordered Social History Social History Type Response Smoking Status Never (less than 100 in lifetime) entered on: 08/21/18 Sex
--- OUTSIDE RECORDS SUMMARY | 2022-10-01 15:26 | XMS_ITS | Continuity of Care Document ---
Author Name Unknown Organization [facility] e Medicine Address Unknown Care Team Providers Care Velvet Cutter Name Role Phone Not on Staff, PCP Primary Care Physician Unavail able Encounter [facility] [place] Date(s): 08/25/21 - 09/24/21 [facility] Reproductive Medicine Allergies, Adverse Reactions, Alerts [...]
--- OUTSIDE RECORDS SUMMARY | 2022-10-01 15:26 | XMS_ITS | Continuity of Care Document ---
Author Name Unknown Organization [facility] e Medicine Address [address] [place] [address]- Care Team Providers Care Elementary [employer] Director Name Role Phone Not on Staff, PCP Primary Care Physician Unavail able [place] [facility] [place] 12[place]21 [facility] Reproductive Medicine [address] [place] [id number] Allergies, Adverse Reactions, Alerts No [...]
--- OUTSIDE RECORDS SUMMARY | 2022-10-01 15:26 | XMS_ITS | Continuity of Care Document ---
Author Name Unknown Organization [facility] e Medicine Address Unknown Care Team Providers Care Linen Clerk Name Role Phone Not on Staff, PCP Primary Care Physician Unavail able [place] [facility] [place] 03[place]23/21 [facility] Reproductive Medicine Attending Physician: Vikki Pisano MD Allergies, Adverse Reactions, Alerts No Known Medication [...] 13:20:55 EDT Start Date: 08/21/18 Status: Ordered Vital Signs Most recent to oldest [Reference Range]: 1 Height 157.48 cm (03/16/21 12:22 PM) Weight 63.9 kg (03/16/21 12:22 PM) Pulse Rate [55-90 bpm] 71 bpm (03/16/21 12:22 PM) Body Mass Index [18.5-24.99] 25.77 *H* (03/16/21 12:22 PM) Blood Pressure [90-138/55-84 mm Hg] 107/ 63mm Hg (03/16/21 12:22 PM) Blood pressure sites Arm, right (03/16/21 12:22 PM) Weight Obtained Via Standing scale (03/16/21 12:22 PM) Social History Social History Type Response Smoking Status Never (less than 100 in lifetime) entered on: 08/21/18 Sex
--- OUTSIDE RECORDS SUMMARY | 2022-10-01 15:26 | XMS_ITS | Continuity of Care Document ---
Author Name Unknown Organization [facility] e Medicine Address Unknown Care Team Providers Care Foundation Drill Operator Helper Name Role Phone Not on Staff, PCP Primary Care Physician Unavail able [place] [facility] [place] 03[place]05/21 [facility] Reproductive Medicine Allergies, Adverse Reactions, Alerts [...]
--- OUTSIDE RECORDS SUMMARY | 2022-10-01 15:26 | XMS_ITS | Continuity of Care Document ---
Author Name Unknown Organization [facility] ter Address [address] [place] [id number] Care Team Providers Care Clinical Academic Allergist Name Role Phone Not on Staff, PCP Primary Care Physician Unavail able [place] [facility] [place] - 05/09/[address] [id number] Discharge Disposition: A-D/C Home Attending Physician: Raissa Pendleton MD Admitting Physician: Raissa Pendleton MD Referring Physician: Raissa Pendleton MD Allergies, Adverse Reactions, Alerts No Known Medication Allergies Medications 27G 0.5 NEEDLE 27G 0.5 NEEDLE, See Instructions, # 1 each, Refills 3, Tot. Refills 3, Maintenance, TO USE WITH HCG, 03/29/22 15:59:00 EST, Supply, 157.48, cm, 03/29/22 9:23:00 EST, Height Start Date: 03/29/22 Status: Ordered 3cc SYRINGE 22G 1.5 inch 3cc SYRINGE 22G 1.5 inch, See Instructions, # 1 each, Refills 3, Tot. Refills 3, Maintenance, TO USE WITH HCG, 03/29/22 15:59:00 EST, Supply, 157.48, cm, 03/29/22 9:23:00 EST, Height Start Date: 03/29/22 Status: Ordered chorionic gonadotropin (HCG) 66072 u injectable powder for injection = 10,000 units, Subcutaneous Injection, Once, TAKE SUBCUTANEOUS INJECTION ONCE PER CYCLE WHEN DIRECTED, # 1 each, 3 Refills, Soft Stop, 03/29/22 16:00:00 EST, [facility], Partial fill upon patient request if the prescription is for a... Start Date: 03/29/22 Status: Ordered doxycycline hyclate 100 mg oral capsule 1 capsule = 100 mg, By Mouth, Every 12 hours, for 14 days, # 28 capsule, 0 Refills, Acute 05/23/22 8:12:00 EST, 05/09/22 8:12:00 EST, Capsule, [facility], Partial fill upon patient request if the prescription is for a schedule II o... Start Date: 05/09/22 Stop Date: 05/23/22 Status: Ordered ibuprofen 800 mg oral tablet 800 mg, 1, tablet, By Mouth, Every 8 hours, PRN, # 30 tablet, Refills 0, Tot. Refills 0, Maintenance, Pain , Mild, 05/09/22 8:11:00 EST, Route to Pharmacy Electronically, [facility], Partial fill upon patient request if the prescri... Start Date: 05/09/22 Status: Ordered letrozole 2.5 mg oral tablet 2 tablet = 5 mg, By Mouth, Daily, BEGIN ON 3RD DAY OF CYCLE CONTINUE FOR 5 DAYS, # 10 tablet, 3 Refills, Maintenance, 03/29/22 15:57:00 EST, [facility], Partial fill upon patient request if the prescription is for a schedule II op... Start Date: 03/29/22 Stop Date: 04/18/22 Status: Ordered metroNIDAZOLE 500 mg oral tablet 1 tablet = 500 mg, By Mouth, Every 12 hours, for 14 days, # 28 tablet, 0 Refills, Acute 05/23/22 8:11:00 EST, 05/09/22 8:11:00 EST, Tablet, [facility], Partial fill upon patient request, 157.48, cm, 05/09/22 7:57:00 EST, Height, 60... Start Date: 05/09/22 Stop Date: 05/23/22 Status: Ordered ondansetron 4 mg oral tablet, disintegrating 1 tablet = 4 mg, By Mouth, Every 8 hours, PRN as needed for nausea/vomiting, # 10 tablet, 0 Refills, Maintenance, 05/09/22 8:13:00 EST, DIS Tablet, [facility], Partial fill upon patient request if the prescription is for a schedule... Start Date: 05/09/22 Status: Ordered oxyCODONE 5 mg oral tablet 5 mg, 1, tablet, By Mouth, Every 6 hours, PRN, # 5 tablet, Refills 0, Tot. Refills 0, Maintenance, Pain , Severe, 05/06/22 15:16:00 EST, Route to Pharmacy Electronically, [id number], Partial fill upon patient request if the prescription is for... Start Date: 05/06/22 Status: Ordered Prometrium 200 mg oral capsule 1 capsule = 200 mg, Vaginally, 2 times a day, starting 4 days after positive LH surge., # 60 capsule, 5 Refills, Maintenance, 08/21/18 14:22:49 EDT Start Date: 08/21/18 Status: Ordered Tylenol 325 mg oral tablet 975 mg, 3, tablet, By Mouth, Every 6 hours, PRN, # 30 tablet, Refills 0, Tot. Refills 0, Maintenance, Pain , Mild, 05/09/22 8:11:00 EST, Route to Pharmacy Electronically, [facility], Partial fill upon patient request if the prescri... Start Date: 05/09/22 Status: Ordered Problem List Condition Confirmation Course Effective Dates Status Health St atus Informant Secondary tubal infertility Confirmed Active Procedures Procedure Date Related Diagnosis Body Site Status Salpingectomy, left 10/29/21 Compl eted Vital Signs Most recent to oldest [Reference Range]: 1 2 3 Height 157.48 cm (05/09/22 10:23 AM) 157.48 cm (05/09/22 7:57 AM) 157.48 cm (05/09/22 3:56 AM) Weight 60 kg (05/08/22 4:08 PM) Oxygen Saturation [94-100 %] 100 % (05/09/22 10:23 AM) 97 % (05/09/22 7:57 AM) 100 % (05/09/22 3:56 AM) Pulse Rate [55-90 bpm] 87 bpm (05/09/22 10:23 AM) 74 bpm (05/09/22 7:57 AM) 83 bpm (05/09/22 3:56 AM) Body Mass Index [18.5-24.99 kg/m2] 24.19 kg/m2 (05/08/22 4:08 PM) Blood Pressure [90-138/55-84 mm Hg] 105/68mm Hg (05/09/22 10:23 AM) 106/52mm Hg (05/09/22 7:57 AM) 103/61mm Hg (05/09/22 3:56 AM) Respiratory Rate [16-30 br/min] 18 br/min (05/09/22 10:23 AM) 18 br/min (05/09/22 9:44 AM) 17 br/min (05/09/22 7:57 AM) Temperature [96.8-100.4 DegF] 98.1 DegF (05/09/22 10:23 AM) 98.1 DegF (05/09/22 7:57 AM) 98.1 DegF (05/09/22 3:56 AM) Mode of Delivery (Oxygen) Room air (05/09/22 10:23 AM) Room air (05/09/22 7:57 AM) Room air (05/09/22 3:56 AM) Blood pressure sites Arm, left (05/09/22 10:23 AM) Arm, left (05/09/22 7:57 AM) Arm, left (05/09/22 3:56 AM) Temperature Route Oral (05/09/22 10:23 AM) Oral (05/09/22 7:57 AM) Oral (05/09/22 3:56 AM) Dry Weight 60 kg (05/08/22 4:08 PM) Social History Social History Type Response Smoking Status Never (less than 100 in lifetime) entered on: 08/21/18 Sex History and physical note * Olena XIAO, Moni: PERFORM Event Display: History and Physical Hospital Authored Date: Patient: ??ISNEEL YBARRA ? Age:??31 Years?Sex:??Female?:??1990?? Chief Complaint Per pt, has a ruptured cyst on the right side seen on Monday. Coming to [facility] today after swollen tube on my right side was visualized on US. Was seen by [facility] today. Reports right-sided pain and nausea. History of Present Illness Neel is a 31yo G0 followed by [facility] for IVF who is admitted for presumed pelvid inflammatory disease. She was seen in the [facility] office today, at which time she was found to have a temperature of 100.2 F, had RLQ pain and tenderness, and was found to have right cystic tubular structure and right hydronephrosis. She also endorses nausea without vomiting, and generally not feeling well. She reports it is painful to move around specifically in the right lower quadrant. ?? Underwent trigger injection on 04/26. Review of Systems Negative except as noted in HPI Physical Exam Vitals & Measurements T:??99.6?F ?? WY:??74?? RR:??18?? BP:??108/65?? SpO2:??99%?? HT:??157.48??cm?? Constitutional:??No acute distress, but appears pale and uncomfortable. Respiratory:??Normal work of breathing. Lungs clear to auscultation bilaterally. Cardiovascular:??Regular rate and rhythm, no murmurs.? Abdomen/GI:??Soft. Mildly distended and tympanitic. RLQ tenderness on light and deep palpation withguarding. No rebound. Skin: Pale appearing. No rash or jaundice. Assessment/Plan Assessment:??31yo G0 followed by [facility] admitted for PID. Significant RLQ pain and tenderness. Afebrile but T max 100.2 in the [facility] office today. Vitals are otherwise wnl. She is ill-appearing, uncomfortable, and nauseous. Plan to admit for IV antibiotics and observation. UPT negative in [facility]. ?? PID (pelvic inflammatory disease) (N73.9):? - Admit for observation - Antibiotics: ?- IV Ceftriaxone 1g q24h ?- IV Doxycycline 100 mg q12h ?- IV Metronidazole 500 mg q12h - Pain: Tylenol, Ibuprofen, Oxy prn - Nausea: Zofran prn - IVF 75/hr - Diet: regular - Transition abx to PO when nausea improves and tolerating PO ? patient and plan reviewed with Dr. Barraza, [facility] attending physician. OB History History?(0,0,1,0)? # 1 ?Baby 1 ?Outcome Date:??2018 ?Outcome or Result:??Spontaneous ?Gest Age:??-- ? Outcome:? Sex:??-- Active Problem List Active Problem List Secondary tubal infertility: (Medical) Procedure/Surgical History Salpingectomy, left: 10/29/21 Home Medications Cholecalciferol: 800 International_Units = 2 tablet, By Mouth, Daily Chorionic Gonadotropin (Human): 10,000 units, Subcutaneous Injection, Once, TAKE SUBCUTANEOUS INJECTION ONCE PER CYCLE WHEN DIRECTED Folic Acid: Daily Letrozole: 5 mg = 2 tablet, By Mouth, Daily, BEGIN ON 3RD DAY OF CYCLECONTINUE FOR 5 DAYS Miscellaneous Rx (3cc SYRINGE ??22G 1.5 inch): See Instructions, TO USE WITH HCG Miscellaneous Rx (27G 0.5 NEEDLE): See Instructions, TO USE WITH HCG Multivitamin With Minerals: 1 tablet, By Mouth, Daily Oxycodone: 5 mg = 1 tablet, By Mouth, Every 6 hours, PRN (Pain , Severe) Progesterone: 200 mg = 1 capsule, Vaginally, 2 times a day, starting 4 days after positive LH surge. Zolpidem: Daily at bedtime Allergies No Known Medication Allergies Social History Alcohol Use: Current. Frequency: 1-2 times per month., 08/21/2018 Employment/School Status: Unemployed., 08/21/2018 Sexual Sexually involved in last 6 months: Yes. Gender identity: Identifies as female., 08/21/2018 Substance Abuse Use: Current. Type: Marijuana., 08/21/2018 Tobacco Use: Never (less than 100 in lifetime)., 08/21/2018 Family History Mother: Diabetes mellitus type II Mat. Grandmother: Diabetes mellitus type II Hospital Progress note * Sangeetha Ann RN: PERFORM, SIGN, VERIFY Event Display: Progress Note Hospital Authored Date: [id number] Patient: NEEL NIXON Age: 31 years Sex: Female : 1990 Associated Diagnoses: None Author: Sangeetha Ann RN Findings Narrative/Incidental Patient alert, oriented, out of bed independantly. Peripheral IV removed from right lower arm with tip intact. All discharge instruction read to the patient. She states she understands. Uber ride to bring patient home. Will continue to monitor.. Discharge Information Case Management Discharge Plan : Case Management Discharge Plan Data 05/09/2022 11:11 EST Discharge Level of Care at Discharge Home/Nursing Home/Foster Care * Marina Rios RN: PERFORM, MODIFY, MODIFY, MODIFY, MODIFY, MODIFY, SIGN, VERIFY Event Display: Progress Note Hospital Authored Date: [id number] Patient: NEEL NIXON Age: 31 years Sex: Female : 1990 Associated Diagnoses: None Author: Marina Rios RN Findings Problem Related to Alteration in Genitourinary : Alteration in Genitourinary Function/new 05/08/2022 19:00 EST Alteration in Status Related to Other: pelvic inflammatory disease Goals & Outcomes, Genitourinary Pt will achieve normal/improved fluid balance, Pt will maintainadequate GI function appropriate for pt, Pt will maintain adequate function appropriate for pt, Pt will maintain normal fluid balance, Pt will resume normal pattern of elimination Interventions, Assess/monitor/maintain Genitourinary status, Encourage PO fluid intake as allowed by diet, Assess for vaginal bleeding, institute pericare, Assess peripad for drainage, consistency, amount BH Goals/Interventions, Genitourinary Yes Genitourinary, Problem Start 05/08/2022 18:03 Reviewed Plan with, Genitourinary Patient Patient Progression, Genitourinary Patient progressing according to plan Genitourinary, Problem Ongoing Yes . Nursing Data Cardiac Data. : Cardiac Data. 05/08/2022 19:00 EST Cardiovascular Symptoms None Nail Bed Color, Fingers [place] Nail Bed Color, Toes [place] Skin Temperature Upper Extremities Warm Skin Temperature Lower Extremities Warm Heart Sounds S1, S2 Heart Rhythm Regular Capillary Refill < 3 seconds Cardiovascular WNL except . Respiratory/Pulmonary Data. : Respiratory/Pulmonary Data. 05/08/2022 19:00 EST Respiratory Symptoms None Respiratory effort Unlabored Respiratory Assessment Comment respirations even and unlabored on room air, denies sob Cough No cough Respiratory distress None Respiratory Treatment(s) Cough and deep breathe Respiratory WNL except . Vital Signs : VITAL SIGNS SECTION 05/08/2022 19:08 EST Early Warning Score 2.00 05/08/2022 19:08 EST Temperature 97.8 DegF Temperature Route Oral Pulse Rate 72 bpm Respiratory Rate 20 br/min Systolic Blood Pressure 102 mm Hg Diastolic Blood Pressure 64 mm Hg Blood pressure sites Arm, left Mean Arterial Pressure 77 mm Hg Pulse Pressure 38 mm Hg Oxygen Saturation 100 % Mode of Delivery (Oxygen) Room air . Evaluation P: per nursing care plan I: r/t nursing care plan E:Assumed care of patient at 1830, pt a/ox4, following commands appropriately, afebrile, VS wnl. Respirations even and unlabored on room air, denies sob. Patient endorses continued RLQ pain, unable to describe quality, refused Ibuprofen stating My doctor told me not to take it because I'm trying to become , patient agreeable to take tylenol, admin apap per order. Denies NVD, tolerating po intake without diffculty, states voiding in bathroom without difficulty, denies dysuria. RFA IV assessed and functional, LR infusing at 75 mL/hr. Educated patient on plan of care and call pereira use,fall risk precautions in place, call pereira within reach, hourly rounding maintained. See CIS for full assessment data and flow sheets, will continue monitoring as needed. . * Dafne PLEITEZ, Renata Vargas: PERFORM, SIGN, VERIFY Event Display: Progress Note Hospital Authored Date: [id number] Patient: NEEL NIXON Age: 31 years Sex: Female : 1990 Associated Diagnoses: None Author: Renata Leos RN Findings Narrative/Incidental Pt admitted and oriented to [address], understands and speaks Tajik, c/o 7/10 rt lower quadrant pain, oxycodone given as ordered, IV antibiotics as ordered,pt instructed on use of callbell, admission assessment completed, plan of care reviewed with pt, will continue to monitor and assess.. Note * Seth PLEITEZ, Sangeetha: PERFORM Event Display: Discharge/Transfer Note Hospital Authored Date: [id number] Nursing Discharge Note Entered On: 05/09/2022 11:12 EST Performed On: 05/09/2022 11:11 EST by Seth PLEITEZ Sangeetha Nursing Discharge Note 2 Discharge Time : 05/09/2022 11:39 EST Seth PLEITEZ Sangeetha - 05/09/2022 12:02 EST Discharge Level of Care at Discharge : Home/Nursing Home/Foster Care Patient Left Unit Via : Wheelchair Patient Accompanied Off Unit with : Responsible adult, Other: STAFF DC Instructions Provided & Signed by Pt : Yes Patient Understands D/C Instructions : Yes Patient Instructions Discharge Signed : Yes Did Pt have Specialty Bed or Wound Vac : No Seth PLEITEZ Sangeetha - 05/09/2022 11:11 EST * Tian CARR, Lalitha N: PERFORM Event Display: Discharge/Transfer Note Hospital Authored Date: [id number] Patient: ??ISENEL YBARRA ? Age:??31 Years?Sex:??Female?:??1990?? Admit Date Admission Date: 05/08/2022 Discharge Date 05/09/22 Discharge Diagnoses PID (pelvic inflammatory disease), 05/08/2022 [facility] Course 31yo G0 followed by [facility] admitted for observation for presumed pelvic inflammatory disease based on constitutional symptoms of fever, nausea, vomiting and pain and a right hydrosalpinx visualized on ultrasound. She received IV antibiotics for PID (Ceftriaxone, Doxycycline, and Metronidazole). On hospital day 2, she finds her symptoms have improved. Denies any more fever or chills, nausea or vomiting, and pain has improved. She is able to tolerate PO intake. Given improvement, patient was discharged on PO antibiotic regimen of doxycycline and flagyl Objective/Physical Exam on Day of Discharge Vitals & Measurements T:??98.1?F ?? WY:??74?? RR:??17?? BP:??106/52?? SpO2:??97%?? HT:??157.48??cm?? WT:??60??kg?? BMI:??24.19?? Constitutional:??Normal affect, no acute distress, well-developed. Respirations:??Normal exam, not labored.? Breath sounds are:??Clear to auscultation, equal bilaterally, not with rales, crackles, wheezing,??or rhonchi.? Cardiovascular:??Regular rate and rhythm, no murmurs.? Abdomen/GI:??Soft, non-tender, and non-distended, no guarding, no rebound tenderness.?? Skin:??No rash or jaundice. Normal for ethnicity. Neurological/Psychiatric:??Appearance appropriate, mood and affect stable. Assessment/Plan Assessment:??31yo G0??admitted for presumed pelvic inflammatory disease in the setting of??fever, chills, nausea, vomiting,??and pain??and right hydrosalpinx visualized on ultrasound.?Patient remained afebrile,??T??max 100.2??in the [facility] office just prior to admission.?She received IV??antibiot ics??(ceftriaxone, doxycycline, and Flagyl).?Overnight??her vitals remained within normal limits, her symptoms improved, she is able to tolerate p.o. intake.?Discussed??discharge today??given improvement in symptoms.?Will discharge on 14 days of??doxycycline and Flagyl.? PID (pelvic inflammatory disease) (N73.9):?- Antibiotics - Rx sent ?- PO Doxycycline 100 mg q12h ?- PO Metronidazole 500 mg q12h ??- Pain: Tylenol, Ibuprofen Rx sent ??- Nausea: Zofran prn, Rx sent?- Diet: regular - Follow up in [facility] office ?? Patient discussed with Dr. Barraza, attending physician ?? Discharge Medications ???Acetaminophen (Tylenol 325 mg oral tablet)???Chorionic Gonadotropin (Human) (chorionic gonadotropin (HCG) 28360 u injectable powder for injection)???Doxycycline (doxycycline hyclate 100 mg oral capsule)???Ibuprofen (ibuprofen 800 mg oral tablet)???Letrozole (letrozole 2.5 mg oral tablet)???Metronidazole (metroNIDAZOLE 500 mg oral tablet)???Miscellaneous Rx (27G 0.5 NEEDLE)???Miscellaneous Rx (3cc SYRINGE 22G 1.5 inch)???Ondansetron (ondansetron 4 mg oral tablet, disintegrating)???Oxycodone (oxyCODONE 5 mg oral tablet)???Progesterone (Prometrium 200 mg oral capsule) Stop taking these medications ???Cholecalciferol (Vitamin D3 oral tablet)???Folic Acid???Multivitamin With Minerals (Daily Multi)???Zolpidem Lab Results Test Name Test Result Date/TimeWBC 7.8 k/mm3 05/09/2022 01:29 EST WBC 5.7 k/mm3 05/08/2022 12:07 EST Hgb 13.4 Gm/dL 05/09/2022 01:29 EST Hgb 13.5 Gm/dL 05/08/2022 12:07 EST Hct 38.8 % 05/09/2022 01:29 EST Hct 39.8 % 05/08/2022 12:07 EST Platelet Count 264 k/mm3 05/09/2022 01:29 EST Platelet Count 271 k/mm3 05/08/2022 12:07 EST Patient Instructions Call your provider??if??you are unable??to??take anything by mouth??due to nausea/vomiting??and areunable to take your antibiotics. ??Call if you find that your symptoms are worsening, worsening pain, fever/chills, nausea/vomiting. * Sangeetha Ann RN: PERFORM Event Display: Patient Education/Instruction Authored Date: [id number] Inpatient Adult Discharge Instructions [address] [address] Name: NEEL QIU : 1990 Visit: 05/08/2022 12:11:00 Current Date: 05/09/2022 11:13 Account: [id number] Inpatient Adult Discharge Instructions We would like to thank you for allowing us to assist you with your healthcare needs. The following includes patient education materials and information regarding your injury/illness. Our entire staffstrives to provide an excellent experience for our patients and their families. PLEASE ENSURE YOU FOLLOW-UP PER THE INSTRUCTIONS BELOW! ?? YOUR OPINION IS IMPORTANT TO US! Please complete the survey you may receive by mail or email. Your feedback will be used to make improvements to the healthcare experiences of our patients and their families. Surveys are administered by [employer] ?? If further treatment with your primary care physician or another doctor is recommended, it is important for you to keep the appointment. Call your primary care physician or return to the Emergency Department immediately if your condition worsens, fails to improve, or new symptoms develop. If you need to find a doctor, you can call [facility] [employer] for a referral at [phone] or toll free at [phone]) or log in to [email or web address] ?? You can view and manage your care through the patient portal or by using a health care lila of your choosing. [employer] is a website that allows you to securely view your medical information including your hospital discharge summary, office visit summaries, medications and follow-up visits. You can also request appointments, renew medications, and request access to your medical information using a health care lila of your choosing, or just ask a question. You can enroll at [email or web address] or register during your next office visit. You have been discharged from [facility], Patient Care Unit: S3. If you have any questions regarding these instructions after you leave, please call us and we will be happy to assist you. [facility] Your Care Team Attending Physician Keerthi XIAO, Raissa Moreno Discharging Providers Lalitha Overton DO Reason for Admission Per pt, has a ruptured cyst on the right side seen on Monday. Coming to [facility] today after swollen tube on my right side was visualized on US. Was seen by [facility] today. Reports right-sided pain and nausea. Your Diagnosis PID (pelvic inflammatory disease) Tests Performed Below is a partial list of the tests performed during your hospitalization. You may have had other tests and procedures not included in this list. Please discuss all test results with your provider. Albumin Level Alk Phos ALT AST Beta HCG Serum (Females Only) Bilirubin Total BUN Calcium Level CBC w/ Differential Creatinine Electrolytes Glucose Level Total Protein Primary Care Provider Not on Staff, PCP Advance Directive Health Care Proxy on File No Patient refuses to discuss No qualifying data available. Discharge Vitals Temperature: 98.1 DegF Height: 157.48 cm Pulse Rate: 87 bpm Weight: 60 kg Respiratory Rate: 18 br/min Body Mass Index: 24.19 kg/m2 Systolic Blood Pressure: 105 mm Hg Body surface area: 1.62 Diastolic Blood Pressure: 68 mm Hg ?? Oxygen Saturation: 100 % ?? Studies Pending All tests and labs ordered during this hospital stay have been completed unless listed below. Please discuss all pending results with your provider listed above in these instructions. ?? COVID-19 (2019 Novel Coronavirus) PCR What to do next Instructions From Your Doctor Call your provider??if??you are unable??to??take anything by mouth??due to nausea/vomiting??and areunable to take your antibiotics. ??Call if you find that your symptoms are worsening, worsening pain, fever/chills, nausea/vomiting. Discharge Orders You Need to Schedule the Following Appointments Follow Up with??As Needed When?? Follow Up with??Not on Staff, PCP When?? Discharge Medications NEEL NIXON :1990 Visit Date:05/08/2022 Medications: Please continue your medications until treatment is completed or stopped by your provider. Medications not listed below should be discontinued. Discuss any questions related to medications with your provider. What How Much When Instructions Next Dose New Acetaminophen (Tylenol 325 mg oral tablet) 3 tab(s) Oral Every 6 hours as needed for Pain , Mild Pickup at [facility] as needed New Doxycycline (doxycycline hyclate 100 mg oral capsule) 1 capsule Oral Every 12 hours Duration: 14 Days Pickup at [facility] 05/09 New Ibuprofen (ibuprofen 800 mg oral tablet) 1 tab(s) Oral Every 8 hours as needed for Pain , Mild Pickup at [facility] as needed New Metronidazole (metroNIDAZOLE 500 mg oral tablet) 1 tab(s) Oral Every 12 hours Duration: 14 Days Pickup at [facility] 05/09 New Ondansetron (ondansetron 4 mg oral tablet, disintegrating) 1 tab(s) Oral Every 8 hours as needed for as needed for nausea/vomiting Pickup at [facility] as needed Unchanged Chorionic Gonadotropin (Human) (chorionic gonadotropin (HCG) 38877 u injectable powder for injection) 10,000 unit(s) Subcutaneous Injection Once TAKE SUBCUTANEOUS INJECTION ONCE PER CYCLE WHEN DIRECTED ?? see instruction Unchanged Letrozole (letrozole 2.5 mg oral tablet) 2 tab(s) Oral Daily Duration: 5 Days BEGIN ON 3RD DAY OF CYCLE CONTINUE FOR 5 DAYS ?? 9am 05/10 Unchanged Miscellaneous Rx (27G 0.5 NEEDLE) See instructions TO USE WITH HCG ?? see instructions Unchanged Miscellaneous Rx (3cc SYRINGE 22G 1.5 inch) See instructions TO USE WITH HCG ?? see instructions Unchanged Oxycodone (oxyCODONE 5 mg oral tablet) 1 tab(s) Oral Every 6 hours as needed for Pain , Severe as needed Unchanged Progesterone (Prometrium 200 mg oral capsule) 1 capsule Vaginally Twice a day starting 4 days after positive LH surge. ?? 9pm 05/09 Pharmacy Information [facility]: [address], [place] [id number] [phone] ?? What How Much When Comments Stop Taking Cholecalciferol (Vitamin D3 oral tablet) 2 tab(s) Oral Daily Stop Taking Folic Acid Daily Stop Taking Multivitamin With Minerals (Daily Multi) 1 tab(s) Oral Daily Stop Taking Zolpidem Daily at Bedtime Test Results Below is a partial list of the most recent Laboratory test results done prior to this discharge. You may have had other tests and procedures not included in this list. Please discuss all test resultswith your provider. Albumin Level (05/08/2022) ???Albumin - 4.4 Gm/dL Alk Phos (05/08/2022) ???Alkaline Phosphatase - 40 units/L ALT (05/08/2022) ???ALT (SGPT) - 6 units/L AST (05/08/2022) ???AST (SGOT) - 12 units/L Beta HCG Serum (Females Only) (05/08/2022) ???Blood - 3 mIU/mL Bilirubin Total (05/08/2022) ???Bilirubin, Total - 0.6 mg/dL BUN (05/08/2022) ???BUN - 11 mg/dL Calcium Level (05/08/2022) ???Calcium - 9.6 mg/dL CBC w/ Differential (05/09/2022) ???WBC - 7.8 k/mm3???RBC - 4.51 m/mm3???Hgb - 13.4 Gm/dL???Hct - 38.8 %???MCV - 86.0 femtoliters???MCH - 29.7 pg???MCHC - 34.5 g/dL???Platelet Count - 264 k/mm3???RDW-SD - 35.4 femtoliters???MPV - 11.3 femtoliters???Nucleated RBC (Automated) - 0.0 #/100 WBC'S???Abs. NRBC - 0.0 k/mm3???Abs. Neut - 4.3 k/mm3???Abs. Lymph - 2.6 k/mm3???Abs. [place] - 0.6 k/mm3???Abs. Eo - 0.2 k/mm3???Abs. Baso - 0.0 k/mm3???Neut % - 54.7 %???Lymph % - 33.4 %???[place] % - 8.1 %???Eos % - 2.4 %???Baso % - 0.5 %???Imm Gran - 0.9 %???Abs. 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 Education Materials Below is the list of Educational Leaflet Providered with your Discharge Instructions. Valuables and Belongings I fully understand and agree that [facility] accepts no responsibility for all my personal property including clothing, toilet articles, radios, jewelry, dentures, hearing aids, rings, money, or any other property that is in my possession or is brought to me after admission. I understand certain valuables may be placed in a hospital safe for a short period of time. I understand that the hospital is not liable for loss or damage due to accident, fire, or other natural occurrence while said property is in the safe. I accept full responsibility for any personal property that I keep with me, and will not hold the hospital responsible in case of loss or disappearance. I acknowledge that i have been encouraged to send valuables and belongings home. ?? Review of Valuable and Belonging List: With patient Date for Pt to Sign Valuables/Belongings: 05/09/22 10:23:00 ?? Other Discharge Information ? Case Management Discharge Plan?? Discharge Plan?? Discharge Level of Care at Discharge: Home/Nursing Home/Foster Care ?? Pulmonary Rehab Status?? Pulmonary Rehab Discharge Status?? Respiratory Rate: 18 br/min ? Common Emergency Awareness Tips IS IT A STROKE? Act FAST and Check for these signs: FACE Does the face look uneven? ARM Does one arm drift down? SPEECH Does their speech sound strange? TIME Call at any sign of stroke ?? Heart Attack Signs Chest discomfort: Most heart attacks involve discomfort in the center of the chest and lasts more than a few minutes, or goes away and comes back. It can feel like uncomfortable pressure, squeezing, fullness or pain. Discomfort in upper body: Symptoms can include pain or discomfort in one or both arms, back, neck, jaw or stomach. Shortness of breath: With or without discomfort. Other signs: Breaking out in a cold sweat, nausea, or lightheaded. Remember, MINUTES DO MATTER. If you experience any of these heart attack warning signs, call to get immediate medical attention! ?? Smoking can increase your chances of developing chronic health problems and can cause harmful effects to other family members in your house. If you smoke, you are strongly encouraged to quit. Please call [employer] at [phone] or 2-401-544-[employer] (0166) or log in to www.[employer].org for referrals to smoking cessation programs. ?? The National Suicide Prevention Hotline is available 07/11 if you or someone you know needs to find a reason to keep living. By calling 4-772-384-talk (8255) you'll be connected to a skilled, trained counselor at a crisis center in your area. INPATIENT DISCHARGE INSTRUCTIONS SIGNATURE PAGE NEEL NIXON Location:[facility] Registration Date and Time:05/08/2022 12:11 EST Primary Care Physician: Not on Staff, PCP I NEEL NIXON, have received the above patient education materials/instructions and have verbalized understanding. If ambulance or transport services are being used I further acknowledgebeing given a choice of service. ?? If you need to contact me, please call me at this number: . Patient/Global Category Manager Name: Patient/Global Category Manager Signature: Relationship to Patient: Witness Name/Signature: Date: * Sangeetha Ann RN: PERFORM Event Display: Patient Education Leaflets Authored Date: [id number] Pelvic Inflammatory Disease ?? Enfermedad inflamatoria p??lvica (EIP) - Video La enfermedad inflamatoria p??lvica (EIP) es roberta infecci??n de los ??rganos reproductivos femeninos. Puede provocar dolor y fiebre. Aprenda aqu?? c??mo puede prevenir la EIP y c??mo se diagnostica. To view the video go to this web address: [email or web address] Or, scan this QR code with your smart phone ?? [employer]. All rights reserved. This information is not intended as a substitute for professional medical care. Always follow your healthcare professional's instructions. ?? * Sangeetha Ann RN: PERFORM Event Display: Patient Education Leaflets Authored Date: [id number] What Is Pelvic Inflammatory Disease (PID)? ?? [address] En qu?? consiste la enfermedad inflamatoria p??lvica La enfermedad inflamatoria p??lvica (EIP) es roberta infecci??n de los ??rganos sexuales. Si no se trata, puede provocar da??os graves en el cuerpo. En ocasiones, la enfermedad inflamatoria p??lvica puede causar s??ntomas alexander serios ame para hacerla ir a la laura de emergencias. Sin embargo, en muchos casos, la EIP es roberta infecci??n silenciosa. No tiene s??ntomas o tiene muy pocos. La infecci??n puede tratarse. [place] puede ayudar a prevenir un da??o a alia plazo. ??Eleno??n puede contraer enfermedad inflamatoria p??lvica? La enfermedad inflamatoria p??lvica puede aparecer a cualquier edad. Sin embargo, la mayor??a de las mujeres que la contraen est??n terminando la adolescencia o tienen poco m??s de 20 a??os. Muchas no se enteran de que tienen enfermedad inflamatoria p??lvica hasta varios a??os despu??s de iniciada la infecci??n. Cuanto m??s tiempo pase roberta david infectada, mayor ser?? el riesgo de tener m??s problemas de ena. Cuantas m??s parejas sexuales tenga, mayor ser?? castillo riesgo. Tambi??n aumenta castillo riesgo de tener enfermedad inflamatoria p??lvica si ya tuvo esta enfermedad antes.?Cu??les son los s??ntomas? Si presenta s??ntomas por la enfermedad inflamatoria p??lvica, ser??n parecidos a los de muchos otros problemas de ena. Es por esto que esta afecci??n puede ser dif??cil de detectar. Los s??ntomas pueden incluir lo siguiente: ??? Cathy p??lvicos ??? Dolor al mantener relaciones sexuales o sangrar despu??s de las relaciones ??? Dolor al orinar u orinar con frecuencia ??? Fiebre, escalofr??os uotros s??ntomas similares a los de la gripe ??? Secreci??n de la vagina con olor desagradable ??? Sangrado vaginal que no es normal? Malestar estomacal y v??mitos ??? Dolor en la parte derecha superior del abdomen ?C??mo contraje la enfermedad inflamatoria p??lvica? La EIP ocurre cuando ciertos g??rmenes infectan los ??rganos sexuales. A menudo, esto sucede porqueusted se infect?? con roberta enfermedad de transmisi??n sexual (ETS). En algunos casos, las mujeres contraen esta afecci??n mientras est??n usando un dispositivo intrauterino (DIU) ame m??todo anticonceptivo. Generalmente, milo problema se presenta dentro de las harriet primeras semanas despu??s de la colocaci??n del DIU.??Se althea que la enfermedad inflamatoria p??lvica ocurre de esta manera:?? 1. Cuando se mantiene roberta relaci??n sexual, el semen sale del pene y entra en la vagina. Junto con el semen, pueden ingresar g??rmenes que causan ITS. 2. Los g??rmenes pueden subir por el elda uterino y llegar al ??tero. 3. Luego, van del ??tero a las trompas de Falopio y a los ovarios. As?? se infectanlos ovarios. 4. La infecci??n puede salir de las trompas de Falopio y extenderse a otras partes delcuerpo. ?? El tratamiento puede ayudar Cuando la EIP se descubre y se trata tempranamente, con frecuencia se puede curar. Anish, si no se trata, puede causar problemas de ena graves. Por ejemplo, pueden da??arse los ??rganos reproductores, puede sentir dolor p??lvico y tener dificultades para quedar embarazada (infertilidad). Aunque es infrecuente, las complicaciones de la enfermedad inflamatoria p??lvica pueden poner en riesgo la genevieve. Es por eso que esta afecci??n debe tratarse lo antes posible. ?? Last Reviewed Date: 2021 ?? [id number] [employer]. Todos los derechos reservados. Esta informaci??n no pretende sustituir la atenci??n m??dica profesional. S??lo castillo m??dico puede diagnosticar y tratar un problema de ena. ?? Patient Care team information Care Team Personnel Name: Not on Staff, PCP Position: [facility] Physician (General Medicine) Member Role: PCP Name: Marina Rios RN Position: [facility] RN Member Role: Primary Care Nurse Name: Lenora Snyder RN Position: [facility] RN Member Role: Primary Care Nurse Name: Sangeetha Ann RN Position: [facility] RN Member Role: Primary Care Nurse Name: Zita Castro RN Position: [facility] OB RN Member Role: OB RN Care Team Related Persons Name: IRENE QIU Address: home [address] [place] [id number] Name: RITA BUNN Address: [address] [place] [id number]
--- OUTSIDE RECORDS SUMMARY | 2022-10-01 15:26 | XMS_ITS | Continuity of Care Document ---
Author Name Unknown Organization [facility] e Medicine Address Unknown Care Team Providers Care Brake Lining Maker Name Role Phone Not on Staff, PCP Primary Care Physician Unavail able Encounter [facility] [place] Date(s): 04/05/21 - 05/05/21 [facility] Reproductive Medicine Attending Physician: John Epps Admitting Physician: John Epps Referring Physician: John Epps Allergies, Adverse Reactions, Alerts No Known Medication [...]
--- OUTSIDE RECORDS SUMMARY | 2022-10-01 15:26 | XMS_ITS | Continuity of Care Document ---
Author Name Unknown Organization [facility] e Medicine Address Unknown Care Team Providers Care Laborer Syrup Machine Name Role Phone Not on Staff, PCP Primary Care Physician Unavail able Encounter [facility] [place] Date(s): 08/24/21 - 08/31/21 [facility] Reproductive Medicine Attending Physician: Vikki Pisano MD [...] oldest [Reference Range]: 1 Height 157.48 cm (08/24/21 11:31 AM) Social History Social History Type Response Smoking Status Never (less than 100 in lifetime) entered on: 08/21/18 Sex
--- OUTSIDE RECORDS SUMMARY | 2022-10-01 15:26 | XMS_ITS | Continuity of Care Document ---
Author Name Unknown Organization [facility] Medicine Address Unknown Care Team Providers Care Mems Process Engineer Name Role Phone Not on Staff, PCP Primary Care Physician Unavail able [place] [facility] [place] 10[place] 10/28/21 [facility] Reproductive Medicine Attending Physician: Odalis Deleon MD Referring Physician: Not on Staff, Referring MD Allergies, Adverse Reactions, Alerts No Known [...] oldest [Reference Range]: 1 Height 157.48 cm (10/21/21 11:41 AM) Weight 62.8 kg (10/21/21 11:41 AM) Pulse Rate [55-90 bpm] 76 bpm (10/21/21 11:41 AM) Body Mass Index [18.5-24.99] 25.32 *H* (10/21/21 11:41 AM) Blood Pressure [90-138/55-84 mm Hg] 116/ 72mm Hg (10/21/21 11:41 AM) Blood pressure sites Arm, right (10/21/21 11:41 AM) Weight Obtained Via Standing scale (10/21/21 11:41 AM) Social History Social History Type Response Smoking Status Never (less than 100 in lifetime) entered on: 08/21/18 Sex
--- OUTSIDE RECORDS SUMMARY | 2022-10-01 15:26 | XMS_ITS | Continuity of Care Document ---
Author Name Unknown Organization [facility] Medicine Address [address] [place] [address], [address] [place] [address]- Care Team Providers Care Ship Yard Electrical Person Name Role Phone Not on Staff, PCP Primary Care Physician Unavail able Encounter [place] Date(s): 05/16/22 - 06/15/22 [facility] Reproductive Medicine [address] [place] [address], [address] [place] [address]- Attending Physician: Admtr, Ar8 Admitting Physician: Admtr, Ar8 Referring Physician: Admtr, Ar8 Allergies, Adverse Reactions, Alerts No Known Medication Allergies Substance Reaction Severity Status Other Environmental Allergy 1 Active 1Pollen, etc. Medications 27G 0.5 NEEDLE 27G 0.5 NEEDLE, [...] Date: 03/29/22 Status: Ordered chorionic gonadotropin (HCG) 17268 u injectable powder for injection = 10,000 units, Subcutaneous Injection, Once, TAKE SUBCUTANEOUS INJECTION ONCE PER CYCLE WHEN DIRECTED, # 1 each, 3 Refills, Soft Stop, 03/29/22 16:00:00 EST, [facility], Partial fill upon patient request if the prescription is for a... Start Date: 03/29/22 Status: Ordered ibuprofen 800 mg oral tablet 800 mg, 1, tablet, By Mouth, Every 8 hours, PRN, # 30 tablet, Refills 0, Tot. Refills 0, Maintenance, Pain , Mild, 05/09/22 8:11:00 EST, Route to Pharmacy Electronically, [facility], Partial fill upon patient request if the prescri... Start Date: 05/09/22 Status: Ordered letrozole 2.5 mg oral tablet 2 tablet = 5 mg, By Mouth, Daily, BEGIN ON 3RD DAY OF CYCLE CONTINUE FOR 5 DAYS, # 10 tablet, 3 Refills, Maintenance, 03/29/22 15:57:00 EST, [facility], Partial fill upon patient request if the prescription is for a schedule II op... Start Date: 03/29/22 Stop Date: 04/18/22 Status: Ordered ondansetron 4 mg oral tablet, disintegrating 1 tablet = 4 mg, By Mouth, Every 8 hours, PRN as needed for nausea/vomiting, # 10 tablet, 0 Refills, Maintenance, 05/09/22 8:13:00 EST, DIS Tablet, [facility], Partial fill upon patient request if the prescription is for a schedule... Start Date: 05/09/22 Status: Ordered oxyCODONE 5 mg oral tablet 5 mg, 1, tablet, By Mouth, Every 6 hours, PRN, # 5 tablet, Refills 0, Tot. Refills 0, Maintenance, Pain , Severe, 05/06/22 15:16:00 EST, Route to Pharmacy Electronically, [facility]/pharmacy #[id number], Partial fill upon patient request if the [...] 05/09/22 8:11:00 EST, Route to Pharmacy Electronically, [facility], Partial fill upon patient request if the prescri... Start Date: 05/09/22 Status: Ordered Problem List Condition Confirmation Course Effective Dates Status Health [facility] Informant Secondary tubal infertility Confirmed Active Social History Social History Type Response Smoking Status Never (less than 100 in lifetime) entered on: 08/21/18 Sex Patient Care team information Care Team Personnel Name: Not on Staff, PCP Position: [facility] Physician (General Medicine) Member Role: PCP Name: Marina Rios RN Position: [facility] RN Member Role: Primary Care Nurse Name: Lenora Snyder RN Position: [facility] RN Member Role: Primary Care Nurse Name: Sangeetha Ann RN Position: [facility] RN Member Role: Primary Care Nurse Care Team Related Persons Name: ONI RITA Address: [address] [place] [address]
--- OUTSIDE RECORDS SUMMARY | 2022-10-01 15:26 | XMS_ITS | Continuity of Care Document ---
Author Name Unknown Organization [facility] ter Address [address] [place] [address]- Care Team Providers Care Crop Scout Name Role Phone Nawaf XIAO, Denise Primary Care Physician [phone] [place] [facility] [place](s): 11/02/21 - 11/02/[address] [id number] Discharge Disposition: A-D/C Home Attending Physician: Odalis Deleon MD Admitting Physician: Odalis Deleon MD Referring Physician: Odalis Deleon MD Allergies, Adverse Reactions, Alerts No Known [...] to oldest [Reference Range]: 1 2 3 Weight 61.8 kg (11/02/21 2:21 PM) Oxygen Saturation [94-100 %] 100 % (11/02/21 6:15 PM) 99 % (11/02/21 6:00 PM) 100 % (11/02/21 5:45 PM) Pulse Rate [55-90 bpm] 67 bpm (11/02/21 2:21 PM) Blood Pressure [90-138/55-84 mm Hg] 110/67mm Hg (11/02/21 6:15 PM) 107/68mm Hg (11/02/21 6:00 PM) 110/64mm Hg (11/02/21 5:45 PM) Respiratory Rate [16-30 br/min] 15 br/min *L* (11/02/21 6:15 PM) 17 br/min (11/02/21 6:00 PM) 16 br/min (11/02/21 5:45 PM) Temperature [96.8-100.4 DegF] 98.9 DegF (11/02/21 5:45 PM) 98.9 DegF (11/02/21 2:21 PM) Liters per Minute 5 L/min (11/02/21 5:45 PM) Mode of Delivery (Oxygen) Room air (11/02/21 6:45 PM) Room air (11/02/21 6:15 PM) Room air (11/02/21 6:00 PM) Blood pressure sites Arm, right (11/02/21 6:15 PM) Arm, right (11/02/21 6:00 PM) Arm, right (11/02/21 5:45 PM) Temperature Route Temporal (11/02/21 5:45 PM) Temporal (11/02/21 2:21 PM) Social History Social History Type Response Smoking Status Never (less than 100 in lifetime) entered on: 08/21/18 Sex
--- OUTSIDE RECORDS SUMMARY | 2022-10-01 15:26 | XMS_ITS | Continuity of Care Document ---
Author Name Unknown Organization [facility] e Medicine Address [address], [address] [place] [address]- Care Team Providers Care Child Support Agent Name Role Phone Not on Staff, PCP Primary Care Physician Unavail able [place] [facility] [place](s): 12/31/21 - 01/30/22 [facility] Reproductive Medicine [address], [address] [place] [id number] Allergies, Adverse Reactions, Alerts No Known [...] Date: 08/21/18 Status: Ordered Problem List Condition Confirmation Course Effective Dates Status Health St [facility] Informant Secondary tubal infertility Confirmed Active Social History Social History Type Response Smoking Status Never (less than 100 in lifetime) entered on: 08/21/18 Sex Patient Care team information Personnel Name: Not on Staff, PCP
--- OUTSIDE RECORDS SUMMARY | 2022-10-01 15:26 | XMS_ITS | Continuity of Care Document ---
Author Name Unknown Organization [facility] Medicine Address [address] [place] [address]- Care Team Providers Care Certified Hearing Instrument Dispenser Name Role Phone Not on Staff, PCP Primary Care Physician Unavail able Encounter [facility] [place] Date(s): 03/29/22 - 04/05/22 [facility] Reproductive Medicine [address], 4[address] [place] [address]- Attending Physician: Yahaira Sanders MD Referring Physician: Not on Staff, Referring [...] Date: 03/29/22 Status: Ordered chorionic gonadotropin (HCG) 35195 u injectable powder for injection = 10,000 units, Subcutaneous Injection, Once, TAKE SUBCUTANEOUS INJECTION ONCE PER CYCLE WHEN DIRECTED, # 1 each, 3 Refills, Soft Stop, 03/29/22 16:00:00 EST, [facility], Partial fill upon patient request if the prescription is for a... Start Date: 03/29/22 Status: Ordered Daily Multi 1 tablet, By Mouth, Daily, 0 Refills, Maintenance, 08/21/18 13:20:39 EDT Start Date: 08/21/18 Status: Ordered Folic Acid Daily, 0 Refills, Maintenance, 08/21/18 13:20:46 EDT Start Date: 08/21/18 Status: Ordered letrozole 2.5 mg oral tablet 2 tablet = 5 mg, By Mouth, Daily, BEGIN ON 3RD DAY OF CYCLE CONTINUE FOR 5 DAYS, # 10 tablet, 3 Refills, Maintenance, 03/29/22 15:57:00 [facility], Partial fill upon patient request if the prescription is for a schedule II op... Start Date: 03/29/22 Stop Date: 04/18/22 Status: Ordered Prometrium 200 mg oral capsule [...] atus Informant Secondary tubal infertility Confirmed Active Vital Signs Most recent to oldest [Reference Range]: 1 Height 157.48 cm (03/29/22 9:23 AM) Weight 65.2 kg (03/29/22 9:23 AM) Pulse Rate [55-90 bpm] 100 bpm *H* (03/29/22 9:23 AM) Body Mass Index [18.5-24.99 kg/m2] 26.29 kg/m2 *H* (03/29/22 9:23 AM) Blood Pressure [90-138/55-84 mm Hg] 112/ 79mm Hg (03/29/22 9:23 AM) Blood pressure sites Arm, left (03/29/22 9:23 AM) Weight Obtained Via Standing scale (03/29/22 9:23 AM) Social History Social History Type Response Smoking Status Never (less than 100 in lifetime) entered on: 08/21/18 Sex Note * Earle Gama MA: PERFORM, SIGN, VERIFY Event Display: Patient Education/Instruction Authored Date: [id number] [facility] *[facility] Clinical Summary Name NEEL NIXON Age 31 Years 1990 PCP Not on Staff, PCP PCP Phone Visit Date 03/29/2022 09:11:00 Additional Instructions: Scheduled Appointments?? Future Appointments ?No Future Appointments Scheduled Follow-Up Instructions ?? Diagnosis Medications: Please continue your medications until treatment is completed or stopped by your provider. Discuss any questions related to medications with your provider. New Medications [facility], [address] [place] [phone], [phone] Chorionic Gonadotropin (Human) (chorionic gonadotropin (HCG) 60265 u injectable powder for injection) 10,000 unit(s) Subcutaneous Injection once. TAKE SUBCUTANEOUS INJECTION ONCE PER CYCLE WHEN DIRECTED. Refills: 3. Next Dose: Miscellaneous Rx (27G 0.5 NEEDLE) TO USE WITH HCG. Refills: 3. Next Dose: Miscellaneous Rx (3cc SYRINGE 22G 1.5 inch) TO USE WITH HCG. Refills: 3. Next Dose: [facility], [address] [place] [address] [phone], [phone] Letrozole (letrozole 2.5 mg oral tablet) 2 tab(s) Oral Daily for 5 Days. BEGIN ON 3RD DAY OF CYCLE CONTINUE FOR 5 DAYS. Refills: 3. Next Dose: Medications to Continue with No Changes These medications were not printed or sent to your pharmacy Cholecalciferol (Vitamin D3 oral tablet) 2 tab(s) Oral Daily. Next Dose: Folic Acid Daily. Next Dose: Multivitamin With Minerals (Daily Multi) 1 tab(s) Oral Daily. Next Dose: Progesterone (Prometrium 200 mg oral capsule) 1 capsule Vaginally twice a day. starting 4 days after positive LH surge.. Refills: 5. Next Dose: Zolpidem Daily at Bedtime. Next Dose: Allergy Info:?? No Known Medication Allergies Medications Given This Visit Future Orders ?No future orders Vital Signs Height 157.48 cm Weight 65.2 kg BMI 26.29 kg/m2 Blood Pressure 112 mm Hg/79 mm Hg Temperature Pulse Rate 100 bpm Respiratory Rate 02 Sat Mode of Delivery / You can now view a summary of your hospital visit from the comfort of your home through a free online portal called [employer]. [employer] is a website that allows you to securely view your medical information including discharge summary, medications and follow-up visits. ??You can alsosend a secure electronic message to your doctor???s office to request appointments, renew medications or just ask a question. You can enroll at [email or web address] or register during your next office visit. Disclaimer:?? The information provided is of a general nature and is intended to be used in conjunction with the recommendations and advice of your health care practitioner. ??Every effort has been made to ensure that the information provided is accurate and complete at the time it is provided to you however, as your needs change, or, as new ??information becomes available, different or additional instructions may be required. If you have questions, please consult with your primary care provider or pharmacist, as appropriate. ??This information is not intended to serve as substitution for assessment and evaluation by a qualified health care provider. If you do not have a primary care provider, you may find a [facility] provider by calling [facility] at [phone]. For information about the plan of care including goals and instructions for your diagnosis, please see the patient education orders section of this document. Patient Education Materials?? The content of this educational material or handout may have been modified, supplemented, or adapted from its original content and format to support your individualized medical care. Additional Provider Instructions: Met with patient. Patient instructed to call with day 1 of cycle to schedule a ultrasound, start medication on day 3 of cycle. Patient will recieve further instructions at the ultrasound appointment. Medications sent to patients pharmacy Patient Care team information Care Team Personnel Name: Not on Staff, PCP Position: S Physician (General Medicine) Member Role: PCP Care Team Related Persons Name: IRENE QIU Address: [address] [address] Name: RITA BUNN Address: [address] [address]
--- OUTSIDE RECORDS SUMMARY | 2022-10-01 15:26 | XMS_ITS | Continuity of Care Document ---
Author Name Unknown Organization [facility] e Medicine Address Unknown Care Team Providers Care Tack Coverer Name Role Phone Not on Staff, PCP Primary Care Physician Unavail able En[place] [facility] [place] Date(s): 11/25/21 - 12/02/21 [facility] Reproductive Medicine Attending Physician: Odalis Deleon MD [...]
--- OUTSIDE RECORDS SUMMARY | 2022-10-01 15:26 | XMS_ITS | Continuity of Care Document ---
Author Name Unknown Organization [facility] e Medicine Address Unknown Care Team Providers Care Builder'S Labourer Name Role Phone Not on Staff, PCP Primary Care Physician Unavail able Encounter [facility] [place] Date(s): 11/16/21 - 11/23/21 [facility] Reproductive Medicine Attending Physician: Odalis Deleon [...] Status Inform ant Secondary tubal infertility(Confirmed) Active Vital Signs Most recent to oldest [Reference Range]: 1 Height 157.48 cm (11/16/21 1:08 PM) Weight 61.4 kg (11/16/21 1:08 PM) Pulse Rate [55-90 bpm] 81 bpm (11/16/21 1:08 PM) Body Mass Index [18.5-24.99] 24.76 (11/16/21 1:08 PM) Blood Pressure [90-138/55-84 mm Hg] 111/ 74mm Hg (11/16/21 1:08 PM) Blood pressure sites Arm, left (11/16/21 1:08 PM) Weight Obtained Via Standing scale (11/16/21 1:08 PM) Social History Social History Type Response Smoking Status Never (less than 100 in lifetime) entered on: 08/21/18 Sex
--- OUTSIDE RECORDS SUMMARY | 2022-10-01 15:26 | XMS_ITS | Continuity of Care Document ---
Author Name Unknown Organization [facility] e Medicine Address Unknown Care Team Providers Care Engine Dynamometer Tester Name Role Phone Not on Staff, PCP Primary Care Physician Unavail able Encounter [facility] [place] Date(s): 04/02/21 - 05/05/21 [facility] Reproductive Medicine Attending Physician: Yahaira Sanders MD Referring Physician: Vikki Pisano MD Allergies, Adverse Reactions, [...]
--- OUTSIDE RECORDS SUMMARY | 2022-10-01 15:26 | XMS_ITS | Continuity of Care Document ---
Author Name Unknown Organization [facility] Medicine Address [address], [address] [place] [address]- Care Team Providers Care Sausage Stringer Name Role Phone Not on Staff, PCP Primary Care Physician Unavail able [place] [facility] [place] 05/10/22 - 07/13/22 [facility] Reproductive Medicine [address] 4[address] [place] [address]- Attending Physician: Christi XIAO, Nat Red Referring Physician: Yahaira Sanders MD Allergies, Adverse Reactions, Alerts No Known [...] Date: 03/29/22 Status: Ordered chorionic gonadotropin (HCG) 13478 u injectable powder for injection = 10,000 units, Subcutaneous Injection, Once, TAKE SUBCUTANEOUS INJECTION ONCE PER CYCLE WHEN DIRECTED, # 1 each, 3 Refills, Soft Stop, 03/29/22 16:00:00 EST, [facility], Partial fill upon patient request if the prescription is for a... Start Date: 03/29/22 Status: Ordered ibuprofen 800 mg oral tablet 800 mg, 1, tablet, By Mouth, Every 8 hours, PRN, # 30 tablet, Refills 0, Tot. Refills 0, Maintenance, Pain , Mild, 05/09/22 8:11:00 EST, Route to Pharmacy Electronically, [facility], Partial fill upon patient request if the prescri... Start Date: 05/09/22 Status: Ordered letrozole 2.5 mg oral tablet 2 tablet = 5 mg, By Mouth, Daily, BEGIN ON 3RD DAY OF CYCLE CONTINUE FOR 5 DAYS, # 10 tablet, 3 Refills, Maintenance, 03/29/22 15:57:00 EST, [facility], Partial fill upon patient request if the prescription is for a schedule II op... Start Date: 03/29/22 Stop Date: 04/18/22 Status: Ordered ondansetron 4 mg oral tablet, disintegrating 1 tablet = 4 mg, By Mouth, Every 8 hours, PRN as needed for nausea/vomiting, # 10 tablet, 0 Refills, Maintenance, 05/09/22 8:13:00 EST, DIS Tablet, [facility], Partial fill upon patient request if the prescription is for a schedule... Start Date: 05/09/22 Status: Ordered oxyCODONE 5 mg oral tablet 5 mg, 1, tablet, By Mouth, Every 6 hours, PRN, # 5 tablet, Refills 0, Tot. Refills 0, Maintenance, Pain , Severe, 05/06/22 15:16:00 EST, Route to Pharmacy Electronically, [facility]/pharmacy #[id number], Partial fill upon patient request if the [...] 05/09/22 8:11:00 EST, Route to Pharmacy Electronically, [facility], Partial fill upon patient request if the prescri... Start Date: 05/09/22 Status: Ordered Problem List Condition Confirmation Course Effective Dates Status Health St atus Informant Secondary tubal infertility Confirmed Active Social History Social History Type Response Smoking Status Never (less than 100 in lifetime) entered on: 08/21/18 Sex Patient Care team information Care Team Personnel Name: Not on Staff, PCP Position: [facility] Physician (General Medicine) Member Role: PCP Name: Marina Rios RN Position: [facility] RN Member Role: Primary Care Nurse Name: Lenora Snyder RN Position: [facility] RN Member Role: Primary Care Nurse Name: Sangeetha Ann RN Position: [facility] RN Member Role: Primary Care Nurse Care Team Related Persons Name: RITA BUNN Address: [address] [place] [address]
--- OUTSIDE RECORDS SUMMARY | 2022-10-01 15:26 | XMS_ITS | Continuity of Care Document ---
Author Name Unknown Organization [facility] Medicine Address [address], 4t [address] [place] [address]- Care Team Providers Care Employment Agency Manager Name Role Phone Not on Staff, PCP Primary Care Physician Unavail able [place] [facility] [place](s): 04/14/22 - 05/14/22 [facility] Reproductive Medicine [address], 4th [address] [place] [address]- Allergies, Adverse Reactions, Alerts No Known Medication [...] Date: 03/29/22 Status: Ordered chorionic gonadotropin (HCG) 20322 u injectable powder for injection = 10,000 units, Subcutaneous Injection, Once, TAKE SUBCUTANEOUS INJECTION ONCE PER CYCLE WHEN DIRECTED, # 1 each, 3 Refills, Soft Stop, 03/29/22 16:00:00 EST, [facility], Partial fill upon patient request if the prescription is for a... Start Date: 03/29/22 Status: Ordered doxycycline hyclate 100 mg oral capsule 1 capsule = 100 mg, By Mouth, Every 12 hours, for 14 days, # 28 capsule, 0 Refills, Acute 05/23/22 8:12:00 EST, 05/09/22 8:12:00 EST, Capsule, [facility], Partial fill upon patient request if the prescription is for a schedule II o... Start Date: 05/09/22 Stop Date: 05/23/22 Status: Ordered ibuprofen 800 mg oral tablet 800 mg, 1, tablet, By Mouth, Every 8 hours, PRN, # 30 tablet, Refills 0, Tot. Refills 0, Maintenance, Pain , Mild, 05/09/22 8:11:00 EST, Route to Pharmacy Electronically, [facility], Partial fill upon patient request if the prescri... Start Date: 05/09/22 Status: Ordered letrozole 2.5 mg oral tablet 2 tablet = 5 mg, By Mouth, Daily, BEGIN ON 3RD DAY OF CYCLE CONTINUE FOR 5 DAYS, # 10 tablet, 3 Refills, Maintenance, 03/29/22 15:57:00 EST, [facility], Partial fill upon patient request if the prescription is for a schedule II op... Start Date: 03/29/22 Stop Date: 04/18/22 Status: Ordered metroNIDAZOLE 500 mg oral tablet 1 tablet = 500 mg, By Mouth, Every 12 hours, for 14 days, # 28 tablet, 0 Refills, Acute 05/23/22 8:11:00 EST, 05/09/22 8:11:00 EST, Tablet, [facility], Partial fill upon patient request, 157.48, cm, 05/09/22 7:57:00 EST, Height, 60... Start Date: 05/09/22 Stop Date: 05/23/22 Status: Ordered ondansetron 4 mg oral tablet, disintegrating 1 tablet = 4 mg, By Mouth, Every 8 hours, PRN as needed for nausea/vomiting, # 10 tablet, 0 Refills, Maintenance, 05/09/22 8:13:00 EST, DIS Tablet, [facility], Partial fill upon patient request if the prescription is for a schedule... Start Date: 05/09/22 Status: Ordered oxyCODONE 5 mg oral tablet 5 mg, 1, tablet, By Mouth, Every 6 hours, PRN, # 5 tablet, Refills 0, Tot. Refills 0, Maintenance, Pain , Severe, 05/06/22 15:16:00 EST, Route to Pharmacy Electronically, [facility]/pharmacy #[id number], Partial fill upon patient request if the [...] 05/09/22 8:11:00 EST, Route to Pharmacy Electronically, [facility], Partial fill upon patient request if the prescri... Start Date: 05/09/22 Status: Ordered Problem List Condition Confirmation Course Effective Dates Status Health St atus Informant Secondary tubal infertility Confirmed Active Social History Social History Type Response Smoking Status Never (less than 100 in lifetime) entered on: 08/21/18 Sex Patient Care team information Care Team Personnel Name: Not on Staff, PCP Position: [facility] Physician (General Medicine) Member Role: PCP Name: Marian Rios RN Position: S RN Member Role: Primary Care Nurse Name: Lenora Snyder RN Position: S RN Member Role: Primary Care Nurse Name: Sangeetha Ann RN Position: S RN Member Role: Primary Care Nurse Care Team Related Persons Name: RITA BUNN Address: home [address] [place] [address]
--- OUTSIDE RECORDS SUMMARY | 2022-10-01 15:26 | XMS_ITS | Continuity of Care Document ---
Author Name Unknown Organization [facility] e Medicine Address Unknown Care Team Providers Care Seasoning Mixer Name Role Phone Not on Staff, PCP Primary Care Physician Unavail able Encounter [facility] [place] Date(s): 04/01/21 - 05/01/21 [facility] Reproductive Medicine Allergies, Adverse Reactions, Alerts [...]
--- OUTSIDE RECORDS SUMMARY | 2022-10-01 15:26 | XMS_ITS | Continuity of Care Document ---
Author Name Unknown Organization [facility] e Medicine Address [address] 4t [address] [place] [address]- Care Team Providers Care Travel Services Professional Name Role Phone Not on Staff, PCP Primary Care Physician Unavail able Encounter [facility] [place] Date(s): 04/08/22 - 05/08/22 [facility] Reproductive Medicine [address] 4th [address] [place] [address]- Allergies, Adverse Reactions, Alerts No Known Medication [...] Date: 03/29/22 Status: Ordered chorionic gonadotropin (HCG) 21996 u injectable powder for injection = 10,000 units, Subcutaneous Injection, Once, TAKE SUBCUTANEOUS INJECTION ONCE PER CYCLE WHEN DIRECTED, # 1 each, 3 Refills, Soft Stop, 03/29/22 16:00:00 EST, [facility], Partial fill upon patient [...] tablet, 3 Refills, Maintenance, 03/29/22 15:57:00 EST, [facility], Partial fill upon patient request if the prescription is for a schedule II op... Start Date: 03/29/22 Stop Date: 04/18/22 Status: Ordered oxyCODONE 5 mg oral tablet 5 mg, 1, tablet, By Mouth, Every 6 hours, PRN, # 5 tablet, Refills 0, Tot. Refills 0, Maintenance, Pain , Severe, 05/06/22 15:16:00 EST, Route to Pharmacy Electronically, [facility]/pharmacy #[id number], Partial fill upon patient request if the [...] Personnel Name: Not on Staff, PCP Position: [facility] Physician (General Medicine) Member Role: PCP Name: Marina Rios RN Position: S RN Member Role: Primary Care Nurse Care Team Related Persons Name: IRENE QIU Address: home [address] [place] [address] Name: RITA BUNN Address: home [address] [place] [address]
--- OUTSIDE RECORDS SUMMARY | 2022-10-01 15:26 | XMS_ITS | Continuity of Care Document ---
Author Name Unknown Organization [facility] e Medicine Address Unknown Care Team Providers Care Smt Operator Name Role Phone Not on Staff, PCP Primary Care Physician Unavail able En[place] [facility] [place] Date(s): 07/20/21 - 09/23/21 [facility] Reproductive Medicine Attending Physician: Vikki Pisano MD [...]
--- OUTSIDE RECORDS SUMMARY | 2022-10-01 15:26 | XMS_ITS | Continuity of Care Document ---
Author Name Unknown Organization [facility] e Medicine Address Unknown Care Team Providers Care Operations And Intelligence Assistant Name Role Phone Not on Staff, PCP Primary Care Physician Unavail able Encounter [facility] [place] Date(s): 07/20/21 - 09/19/21 [facility] Reproductive Medicine Attending Physician: [...]
--- OUTSIDE RECORDS SUMMARY | 2022-10-01 15:27 | XMS_ITS | Continuity of Care Document ---
Author Name Unknown Organization [facility] e Medicine Address Unknown Care Team Providers Care Bridge Expert Name Role Phone Not on Staff, PCP Primary Care Physician Unavail able [place] [facility] [place] 06[place]10[place]21 - 06/17/21 [facility] Reproductive Medicine Attending Physician: Odalis Deleon MD Referring Physician: Vikki Pisano MD Allergies, [...]
--- OUTSIDE RECORDS SUMMARY | 2022-10-01 15:27 | XMS_ITS | Continuity of Care Document ---
Author Name Unknown Organization [facility] e Medicine Address Unknown Care Team Providers Care Administration Clerk Name Role Phone Not on Staff, PCP Primary Care Physician Unavail able [place] [facility] [place] 06/29/21 - 07/29/21 [facility] Reproductive Medicine Allergies, Adverse Reactions, Alerts [...]
--- OUTSIDE RECORDS SUMMARY | 2022-10-01 15:27 | XMS_ITS | Continuity of Care Document ---
Author Name Unknown Organization [facility] Medicine Address [address] [place] [address]- Care Team Providers Care Compensation Intern Name Role Phone Not on Staff, PCP Primary Care Physician Unavail able [place] [facility] [place] 05/08[place]22 - 05/15/22 [facility] Reproductive Medicine [address] 4[address] [place] [address]- Attending Physician: Not on Staff, Attending MD Referring Physician: Yahaira Sanders MD Allergies, Adverse [...] Date: 03/29/22 Status: Ordered chorionic gonadotropin (HCG) 52019 u injectable powder for injection = 10,000 units, Subcutaneous Injection, Once, TAKE SUBCUTANEOUS INJECTION ONCE PER CYCLE WHEN DIRECTED, # 1 each, 3 Refills, Soft Stop, 03/29/22 16:00:00 EST, [facility], Partial fill upon patient request if the prescription is for a... Start Date: 03/29/22 Status: Ordered doxycycline hyclate 100 mg oral capsule 1 capsule = 100 mg, By Mouth, Every 12 hours, for 14 days, # 28 capsule, 0 Refills, Acute 05/23/22 8:12:00 EST, 05/09/22 8:12:00 EST, Capsule, [facility], Partial fill upon patient request if the prescription is for a schedule II o... Start Date: 05/09/22 Stop Date: 05/23/22 Status: Ordered ibuprofen 800 mg oral tablet 800 mg, 1, tablet, By Mouth, Every 8 hours, PRN, # 30 tablet, Refills 0, Tot. Refills 0, Maintenance, Pain , Mild, 05/09/22 8:11:00 EST, Route to Pharmacy Electronically, [facility], Partial fill upon patient request if the prescri... Start Date: 05/09/22 Status: Ordered letrozole 2.5 mg oral tablet 2 tablet = 5 mg, By Mouth, Daily, BEGIN ON 3RD DAY OF CYCLE CONTINUE FOR 5 DAYS, # 10 tablet, 3 Refills, Maintenance, 03/29/22 15:57:00 EST, [facility], Partial fill upon patient request if the prescription is for a schedule II op... Start Date: 03/29/22 Stop Date: 04/18/22 Status: Ordered metroNIDAZOLE 500 mg oral tablet 1 tablet = 500 mg, By Mouth, Every 12 hours, for 14 days, # 28 tablet, 0 Refills, Acute 05/23/22 8:11:00 EST, 05/09/22 8:11:00 EST, Tablet, [facility], Partial fill upon patient request, 157.48, cm, 05/09/22 7:57:00 EST, Height, 60... Start Date: 05/09/22 Stop Date: 05/23/22 Status: Ordered ondansetron 4 mg oral tablet, disintegrating 1 tablet = 4 mg, By Mouth, Every 8 hours, PRN as needed for nausea/vomiting, # 10 tablet, 0 Refills, Maintenance, 05/09/22 8:13:00 EST, DIS Tablet, [facility], Partial fill upon patient request if the prescription is for a schedule... Start Date: 05/09/22 Status: Ordered oxyCODONE 5 mg oral tablet 5 mg, 1, tablet, By Mouth, Every 6 hours, PRN, # 5 tablet, Refills 0, Tot. Refills 0, Maintenance, Pain , Severe, 05/06/22 15:16:00 EST, Route to Pharmacy Electronically, [facility]/pharmacy #[id number], Partial fill upon patient request if the [...] 05/09/22 8:11:00 EST, Route to Pharmacy Electronically, [facility], Partial fill upon patient request if the prescri... Start Date: 05/09/22 Status: Ordered Problem List Condition Confirmation Course Effective Dates Status Health [facility] Informant Secondary tubal infertility Confirmed Active Social History Social History Type Response Smoking Status Never (less than 100 in lifetime) entered on: 08/21/18 Sex Note * Event Display: CAROLYNE Heater Operator Helper Transvaginal, Complete * Event Display: CAROLYNE Heater Operator Helper Transvaginal, Complete Authored Date: [id number] Gynecological Report PATIENT INFO: CMRN: [id number] BMRN: [id number] : [birth year] (31 yrs)(F) Name: NEEL CAT Visit Date: 05/08/2022 09:52 am UYEN PERFORMED BY: Performed By: Jessie Stafford RDMS Attending: Nat Barraza MD Referred By: Nat Barraza MD Location: RE - Reproductive Medicine INDICATIONS: Pelvic pain R10.2 COMPARISON: Prior ultrasound on 05/06 in [facility] HISTORY: Age: 31 HX COMMENTS: Pt is not feeling any better pain persisting. UTERUS: Uterus: Present Position: Anteverted Description: Normal appearance ENDOMETRIUM: Endometrium: Visualized Thickness(mm): 10 Comment: Parial triple layer but appears more luteal today CUL-DE-SAC: A moderate amount of fluid is noted. Appears to be RIGHT OVARY: Status: Visualized Morphology: Complex mass Comment: Bi lobed appearance of ovary with corpus lutuem and adjacent mass which most likely involves the fallopian tube LEFT OVARY: Status: Visualized Size (cm) L: 2.46 W: 2.23 H: 2.32 Vol (ml): 6.66 Morphology: Normal size and appearance Type: Follicular cysts Comment: Unchanged COMMENTS: Measurements of areas seen on prior scan are unchanged. Most likely ovary with corpus lutuem and adjacent mass ?tube. Pt has NO left tube IMPRESSION: Hemorrhagic right ovarian cyst with ring of fire on doppler-consistent with a corpus luteum. There are non- compressible tubular fluid filled structures adjacent to the right ovary that likely represent a hydrosalpinx. The pelvic collection appears to have decreased in volume compared with the prior US on 05/06/2022. The uterus and the left ovary are normal. RECOMMENDATIONS: Patient sent to the [facility] for evaluation. Nat Barraza MD Electronically Signed Final Report 05/08/2022 12:10 pm * Event Display: CAROLYNE Heater Operator Helper Transvaginal, Complete Authored Date: Please click on pdf link to open report Patient Care team information Care Team Personnel Name: Not on Staff, PCP Position: [facility] Physician (General Medicine) Member Role: PCP Name: Gabriel PLEITEZ, Marina Position: [facility] RN Member Role: Primary Care Nurse Name: Lenora Snyder RN Position: [facility] RN Member Role: Primary Care Nurse Name: Sangeetha Ann RN Position: [facility] RN Member Role: Primary Care Nurse Care Team Related Persons Name: RITA BUNN Address: [address] [place] [address]
--- OUTSIDE RECORDS SUMMARY | 2022-10-01 15:27 | XMS_ITS | Continuity of Care Document ---
Author Name Unknown Organization [facility] e Medicine Address [address], [address] [place] [address]- Care Team Providers Care Bench Mover Name Role Phone Not on Staff, PCP Primary Care Physician Unavail able Encounter [facility] [place] Date(s): 07/12/22 - 08/11/22 [facility] Reproductive Medicine [address] [place] [id number] Allergies, Adverse Reactions, Alerts No [...] Date: 03/29/22 Status: Ordered chorionic gonadotropin (HCG) 51081 u injectable powder for injection = 10,000 units, Subcutaneous Injection, Once, TAKE SUBCUTANEOUS INJECTION ONCE PER CYCLE WHEN DIRECTED, # 1 each, 3 Refills, Soft Stop, 03/29/22 16:00:00 EST, [facility], Partial fill upon patient request if the prescription is for a... Start Date: 03/29/22 Status: Ordered ibuprofen 800 mg oral tablet 800 mg, 1, tablet, By Mouth, Every 8 hours, PRN, # 30 tablet, Refills 0, Tot. Refills 0, Maintenance, Pain , Mild, 05/09/22 8:11:00 EST, Route to Pharmacy Electronically, [facility], Partial fill upon patient request if the prescri... Start Date: 05/09/22 Status: Ordered letrozole 2.5 mg oral tablet 2 tablet = 5 mg, By Mouth, Daily, BEGIN ON 3RD DAY OF CYCLE CONTINUE FOR 5 DAYS, # 10 tablet, 3 Refills, Maintenance, 03/29/22 15:57:00 EST, [facility], Partial fill upon patient request if the prescription is for a schedule II op... Start Date: 03/29/22 Stop Date: 04/18/22 Status: Ordered ondansetron 4 mg oral tablet, disintegrating 1 tablet = 4 mg, By Mouth, Every 8 hours, PRN as needed for nausea/vomiting, # 10 tablet, 0 Refills, Maintenance, 05/09/22 8:13:00 EST, DIS Tablet, [facility], Partial fill upon patient request if the prescription is for a schedule... Start Date: 05/09/22 Status: Ordered oxyCODONE 5 mg oral tablet 5 mg, 1, tablet, By Mouth, Every 6 hours, PRN, # 5 tablet, Refills 0, Tot. Refills 0, Maintenance, Pain , Severe, 05/06/22 15:16:00 EST, Route to Pharmacy Electronically, [facility]/pharmacy #[id number], Partial fill upon patient request if the [...] 05/09/22 8:11:00 EST, Route to Pharmacy Electronically, [facility], Partial fill upon patient request if the prescri... Start Date: 05/09/22 Status: Ordered Problem List Condition Confirmation Course Effective Dates Status Health St at[facility] Informant Secondary tubal infertility Confirmed Active Social History Social History Type Response Smoking Status Never (less than 100 in lifetime) entered on: 08/21/18 Sex Patient Care team information Care Team Personnel Name: Not on Staff, PCP Position: [facility] Physician (General Medicine) Member Role: PCP Name: Marina Rios RN Position: [facility] RN Member Role: Primary Care Nurse Name: Lenora Snyder RN Position: [facility] RN Member Role: Primary Care Nurse Name: Sangeetha Ann RN Position: [facility] RN Member Role: Primary Care Nurse Care Team Related Persons Name: RITA BUNN Address: [place] [address] [place] [address]
--- OUTSIDE RECORDS SUMMARY | 2022-10-01 15:27 | XMS_ITS | Continuity of Care Document ---
Author Name Unknown Organization [facility] Medicine Address [address], [address] [place] [address]- Care Team Providers Care Cattle Brander Name Role Phone Not on Staff, PCP Primary Care Physician Unavail able Encounter [facility] [place] Date(s): 05/16/22 - 05/23/22 [facility] Reproductive Medicine [address], 4th [address] [place] [address]- Attending Physician: Christi XIAO, Nat Red Referring [...] Date: 03/29/22 Status: Ordered chorionic gonadotropin (HCG) 29669 u injectable powder for injection = 10,000 units, Subcutaneous Injection, Once, TAKE SUBCUTANEOUS INJECTION ONCE PER CYCLE WHEN DIRECTED, # 1 each, 3 Refills, Soft Stop, 03/29/22 16:00:00 EST, [facility], Partial fill upon patient request if the prescription is for a... Start Date: 03/29/22 Status: Ordered ibuprofen 800 mg oral tablet 800 mg, 1, tablet, By Mouth, Every 8 hours, PRN, # 30 tablet, Refills 0, Tot. Refills 0, Maintenance, Pain , Mild, 05/09/22 8:11:00 EST, Route to Pharmacy Electronically, [facility], Partial fill upon patient request if the prescri... Start Date: 05/09/22 Status: Ordered letrozole 2.5 mg oral tablet 2 tablet = 5 mg, By Mouth, Daily, BEGIN ON 3RD DAY OF CYCLE CONTINUE FOR 5 DAYS, # 10 tablet, 3 Refills, Maintenance, 03/29/22 15:57:00 EST, [facility], Partial fill upon patient request if the prescription is for a schedule II op... Start Date: 03/29/22 Stop Date: 04/18/22 Status: Ordered ondansetron 4 mg oral tablet, disintegrating 1 tablet = 4 mg, By Mouth, Every 8 hours, PRN as needed for nausea/vomiting, # 10 tablet, 0 Refills, Maintenance, 05/09/22 8:13:00 EST, DIS Tablet, [facility], Partial fill upon patient request if the prescription is for a schedule... Start Date: 05/09/22 Status: Ordered oxyCODONE 5 mg oral tablet 5 mg, 1, tablet, By Mouth, Every 6 hours, PRN, # 5 tablet, Refills 0, Tot. Refills 0, Maintenance, Pain , Severe, 05/06/22 15:16:00 EST, Route to Pharmacy Electronically, [facility]/pharmacy #[id number], Partial fill upon patient request if the [...] 8:11:00 EST, Route to Pharmacy Electronically, [facility], Partial fill upon patient request if the prescri... Start Date: 05/09/22 Status: Ordered Problem List Condition Confirmation Course Effective Dates Status Health St atus Informant Secondary tubal infertility Confirmed Active Vital Signs Most recent to oldest [Reference Range]: 1 Height 157.48 cm (05/16/22 2:30 PM) Weight 63.9 kg (05/16/22 2:30 PM) Pulse Rate [55-90 bpm] 81 bpm (05/16/22 2:30 PM) Body Mass Index [18.5-24.99 kg/m2] 25.77 kg/m2 *H* (05/16/22 2:30 PM) Blood Pressure [90-138/55-84 mm Hg] 111/ 67mm Hg (05/16/22 2:30 PM) Blood pressure sites Arm, right (05/16/22 2:30 PM) Weight Obtained Via Standing scale (05/16/22 2:30 PM) Social History Social History Type Response Smoking Status Never (less than 100 in lifetime) entered on: 08/21/18 Sex Note * Hedy Pan MA: PERFORM, SIGN, VERIFY Event Display: Patient Education/Instruction Authored Date: [id number] [facility] *[facility] Clinical Summary Name NEEL NIXON Age 31 Years 1990 PCP Not on Staff, PCP PCP Phone Visit Date 05/16/2022 14:23:00 Additional Instructions: Scheduled Appointments?? Future Appointments ?No Future Appointments Scheduled Follow-Up Instructions ?? Diagnosis Medications: Please continue your medications until treatment is completed or stopped by your provider. Discuss any questions related to medications with your provider. Medications to Continue with No Changes These medications were not printed or sent to your pharmacy Acetaminophen (Tylenol 325 mg oral tablet) 3 tab(s) Oral every 6 hours as needed Pain , Mild. Refills: 0. Next Dose: Chorionic Gonadotropin (Human) (chorionic gonadotropin (HCG) 69161 u injectable powder for injection) 10,000 unit(s) Subcutaneous Injection once. TAKE SUBCUTANEOUS INJECTION ONCE PER CYCLE WHEN DIRECTED. Refills: 3. Next Dose: Doxycycline (doxycycline hyclate 100 mg oral capsule) 1 capsule Oral every 12 hours for 14 Days. Refills: 0. Next Dose: Ibuprofen (ibuprofen 800 mg oral tablet) 1 tab(s) Oral every 8 hours as needed Pain , Mild. Refills: 0. Next Dose: Letrozole (letrozole 2.5 mg oral tablet) 2 tab(s) Oral Daily for 5 Days. BEGIN ON 3RD DAY OF CYCLE CONTINUE FOR 5 DAYS. Refills: 3. Next Dose: Metronidazole (metroNIDAZOLE 500 mg oral tablet) 1 tab(s) Oral every 12 hours for 14 Days. Refills:0. Next Dose: Miscellaneous Rx (27G 0.5 NEEDLE) TO USE WITH HCG. Refills: 3. Next Dose: Miscellaneous Rx (3cc SYRINGE 22G 1.5 inch) TO USE WITH HCG. Refills: 3. Next Dose: Ondansetron (ondansetron 4 mg oral tablet, disintegrating) 1 tab(s) Oral every 8 hours as needed asneeded for nausea/vomiting. Refills: 0. Next Dose: Oxycodone (oxyCODONE 5 mg oral tablet) 1 tab(s) Oral every 6 hours as needed Pain , Severe. Refills: 0. Next Dose: Progesterone (Prometrium 200 mg oral capsule) 1 capsule Vaginally twice a day. starting 4 days after positive LH surge.. Refills: 5. Next Dose: Allergy Info:?? No Known Medication Allergies; Other Environmental Allergy Medications Given This Visit Future Orders ?No future orders Vital Signs Height 157.48 cm Weight 63.9 kg BMI 25.77 kg/m2 Blood Pressure 111 mm Hg/67 mm Hg Temperature Pulse Rate 81 bpm Respiratory Rate 02 Sat Mode of Delivery / You can now view a summary of your hospital visit from the comfort of your home through a free online portal called [employer]. [employer] is a website that allows you to securely view your medical information including discharge summary, medications and follow-up visits. ??You can alsosend a secure electronic message to your doctor???s office to request appointments, renew medications or just ask a question. You can enroll at [email or web address] or register during your next office visit. [...] primary care provider, you may find a [facility] provider by calling [facility] Link at [phone]. For information about the plan of care including goals and instructions for your diagnosis, please see the patient education orders section of this document. Patient Education Materials?? The content of this educational material or handout may have been modified, supplemented, or adapted from its original content and format to support your individualized medical care. Patient Care team information Care Team Personnel Name: Not on Staff, PCP Position: [facility] Physician (General Medicine) Member Role: PCP Name: Marina Rios RN Position: [facility] RN Member Role: Primary Care Nurse Name: Lenora Snyder RN Position: [facility] RN Member Role: Primary Care Nurse Name: Sangeetha Ann RN Position: S RN Member Role: Primary Care Nurse Care Team Related Persons Name: RITA BUNN Address: [address] [place] [address]
--- OUTSIDE RECORDS SUMMARY | 2022-10-01 15:27 | XMS_ITS | Continuity of Care Document ---
Author Name Unknown Organization [facility] e Medicine Address Unknown Care Team Providers Care Material Specialist Name Role Phone Not on Staff, PCP Primary Care Physician Unavail able [place] [facility] [place] 09/19/21 [facility] Reproductive Medicine Attending Physician: Vikki Pisano [...]
--- OUTSIDE RECORDS SUMMARY | 2022-10-01 15:27 | XMS_ITS | Continuity of Care Document ---
Author Name Unknown Organization [facility] e Medicine Address [address], 4t [address] [place] [address]- Care Team Providers Care Telecommunication Operator Name Role Phone Not on Staff, PCP Primary Care Physician Unavail able [place] [facility] [place] 03/23/22 [facility] Rep[facility]ductive [facility] [address]th [address] [place] [id number] Allergies, Adverse Reactions, Alerts No Known Medication [...] Persons Name: IRENE QIU Address: [address] [place] [address] Name: RITA BUNN Address: home [address] [place] [address]
--- OUTSIDE RECORDS SUMMARY | 2022-10-01 15:27 | XMS_ITS | Continuity of Care Document ---
Author Name Unknown Organization [facility] e Medicine Address Unknown Care Team Providers Care Business Account Specialist Name Role Phone Not on Staff, PCP Primary Care Physician Unavail able Encounter [facility] [place] Date(s): 06/01/21 - 07/01/21 [facility] Reproductive Medicine Allergies, Adverse Reactions, Alerts [...]
--- OUTSIDE RECORDS SUMMARY | 2022-10-01 15:27 | XMS_ITS | Continuity of Care Document ---
Author Name Unknown Organization [facility] e Medicine Address [address], 4t [address] [place] [address]- Care Team Providers Care Proof Load Mechanic Name Role Phone Not on Staff, PCP Primary Care Physician Unavail able [place] [facility] [place] 01/13/22 [facility] Rep[facility]ductive [facility] [address] 4th [address] [place] [id number] Allergies, Adverse Reactions, Alerts No [...]
--- OUTSIDE RECORDS SUMMARY | 2022-10-01 15:27 | XMS_ITS | Continuity of Care Document ---
Author Name Unknown Organization [facility] Medicine Address [address], [address] [place] [address]- Care Team Providers Care Metal Lather Name Role Phone Not on Staff, PCP Primary Care Physician Unavail able Encounter [facility] Date(s): 05/06/22 - 05/13/22 [facility] Reproductive Medicine [address], 4th [address] [place] [address]- Attending Physician: Not on Staff, Attending MD Referring Physician: Nat Barraza MD Allergies, Adverse Reactions, Alerts No Known [...] Date: 03/29/22 Status: Ordered chorionic gonadotropin (HCG) 63402 u injectable powder for injection = 10,000 units, Subcutaneous Injection, Once, TAKE SUBCUTANEOUS INJECTION ONCE PER CYCLE WHEN DIRECTED, # 1 each, 3 Refills, Soft Stop, 03/29/22 16:00:00 EST, [facility], Partial fill upon patient request if the prescription is for a... Start Date: 03/29/22 Status: Ordered doxycycline hyclate 100 mg oral capsule 1 capsule = 100 mg, By Mouth, Every 12 hours, for 14 days, # 28 capsule, 0 Refills, Acute 05/23/22 8:12:00 EST, 05/09/22 8:12:00 EST, Capsule, [facility], Partial fill upon patient request if the prescription is for a schedule II o... Start Date: 05/09/22 Stop Date: 05/23/22 Status: Ordered ibuprofen 800 mg oral tablet 800 mg, 1, tablet, By Mouth, Every 8 hours, PRN, # 30 tablet, Refills 0, Tot. Refills 0, Maintenance, Pain , Mild, 05/09/22 8:11:00 EST, Route to Pharmacy Electronically, [facility], Partial fill upon patient request if the prescri... Start Date: 05/09/22 Status: Ordered letrozole 2.5 mg oral tablet 2 tablet = 5 mg, By Mouth, Daily, BEGIN ON 3RD DAY OF CYCLE CONTINUE FOR 5 DAYS, # 10 tablet, 3 Refills, Maintenance, 03/29/22 15:57:00 EST, [facility], Partial fill upon patient request if the prescription is for a schedule II op... Start Date: 03/29/22 Stop Date: 04/18/22 Status: Ordered metroNIDAZOLE 500 mg oral tablet 1 tablet = 500 mg, By Mouth, Every 12 hours, for 14 days, # 28 tablet, 0 Refills, Acute 05/23/22 8:11:00 EST, 05/09/22 8:11:00 EST, Tablet, [facility], Partial fill upon patient request, 157.48, cm, 05/09/22 7:57:00 EST, Height, 60... Start Date: 05/09/22 Stop Date: 05/23/22 Status: Ordered ondansetron 4 mg oral tablet, disintegrating 1 tablet = 4 mg, By Mouth, Every 8 hours, PRN as needed for nausea/vomiting, # 10 tablet, 0 Refills, Maintenance, 05/09/22 8:13:00 EST, DIS Tablet, [facility], Partial fill upon patient request if the prescription is for a schedule... Start Date: 05/09/22 Status: Ordered oxyCODONE 5 mg oral tablet 5 mg, 1, tablet, By Mouth, Every 6 hours, PRN, # 5 tablet, Refills 0, Tot. Refills 0, Maintenance, Pain , Severe, 05/06/22 15:16:00 EST, Route to Pharmacy Electronically, [facility]/pharmacy #[id number], Partial fill upon patient request if the [...] 05/09/22 8:11:00 EST, Route to Pharmacy Electronically, [facility], Partial fill upon patient request if the prescri... Start Date: 05/09/22 Status: Ordered Problem List Condition Confirmation Course Effective Dates Status Health [facility] Informant Secondary tubal infertility Confirmed Active Social History Social History Type Response Smoking Status Never (less than 100 in lifetime) entered on: 08/21/18 Sex Note * Event Display: CAROLYNE Route Rider Transvaginal, Complete Authored Date: [id number] Gynecological Report PATIENT INFO: CMRN: [id number] BMRN: [id number] : [birth year] (31 yrs)(F) Name: NEEL CAT Visit Date: 05/06/2022 09:55 am UYEN PERFORMED BY: Performed By: Jessie Stafford RDMS Attending: Nat Barraza MD Referred By: Nat Barraza MD Location: RE - Reproductive Medicine INDICATIONS: Pelvic pain R10.2 COMPARISON: Cycle completed 04/26 with HCG trigger that day. Pain has increased more over the last 4 days. Call to yesterday. HISTORY: Age: 31 PREVIOUS PELVIC SURGERY: NO LEFT tube due to hydro. RT patent by recent [facility] UTERUS: Uterus: Present Position: Anteverted Size (cm) L: 7.9 W: 3.55 H: 3.1 Description: Normal appearance ENDOMETRIUM: Endometrium: Normal appearance Thickness(mm): 8.2 Comment: Lining is half and half pt is in luteal phase CUL-DE-SAC: A moderate amount of fluid is noted. that extends into the RT adenexa RIGHT OVARY: Status: Visualized Morphology: Enlarged Type: Cystic Complex Comment: 2 bi lobed areas with + doppler these areas measure approx 2.5 cm each. one looks like a corpus lutuem total measurement is :5.8 x 3.2 x 4.7 LEFT OVARY: Status: Visualized Size (cm) L: 2.76 W: 3.5 H: 2.27 Vol (ml): 11.48 Morphology: Normal size and appearance Type: Polycystic Comment: Echogenic band around ovary COMMENTS: Enlarged RT ovary and possibly tube. IMPRESSION: The uterus appears normal. The right ovary is enlarged by a hemorrhaic cyst and a corpus luteum. There is absent whirlpool sign and blood flow is noted on doppler. There is free fluid in the cul de sac and adjacent to the right ovary. Theleft ovary appears normal. RECOMMENDATIONS: Hemorrhagic right ovarian cyst. See note in [facility]. Patient is for close monitoring. Nat Barraza MD Electronically Signed Final Report 05/07/2022 07:27 am * Event Display: CAROLYNE Route Rider Transvaginal, Complete Authored Date: [id number] Please click on pdf link to open report * Event Display: CAROLYNE Route Rider Transvaginal, Complete Patient Care team information Care Team Personnel Name: Not on Staff, PCP Position: [facility] Physician (General Medicine) Member Role: PCP Name: Marina Rios RN Position: [facility] RN Member Role: Primary Care Nurse Name: Lenora Snyder RN Position: S RN Member Role: Primary Care Nurse Name: Sangeetha Ann RN Position: [facility] RN Member Role: Primary Care Nurse Care Team Related Persons Name: RITA BUNN Address: [address] [address]
--- OUTSIDE RECORDS SUMMARY | 2022-10-01 15:27 | XMS_ITS | Continuity of Care Document ---
Author Name Unknown Organization [facility] e Medicine Address [address], [address] [place] [address]- Care Team Providers Care Nanny Caregiver Name Role Phone Not on Staff, PCP Primary Care Physician Unavail able Encounter [facility] [place] Date(s): 04/26/22 - 05/26/22 [facility] Reproductive Medicine [address] [place], [place] [address] Allergies, Adverse Reactions, Alerts No Known [...] Date: 03/29/22 Status: Ordered chorionic gonadotropin (HCG) 95114 u injectable powder for injection = 10,000 units, Subcutaneous Injection, Once, TAKE SUBCUTANEOUS INJECTION ONCE PER CYCLE WHEN DIRECTED, # 1 each, 3 Refills, Soft Stop, 03/29/22 16:00:00 EST, [facility], Partial fill upon patient request if the prescription is for a... Start Date: 03/29/22 Status: Ordered ibuprofen 800 mg oral tablet 800 mg, 1, tablet, By Mouth, Every 8 hours, PRN, # 30 tablet, Refills 0, Tot. Refills 0, Maintenance, Pain , Mild, 05/09/22 8:11:00 EST, Route to Pharmacy Electronically, [facility], Partial fill upon patient request if the prescri... Start Date: 05/09/22 Status: Ordered letrozole 2.5 mg oral tablet 2 tablet = 5 mg, By Mouth, Daily, BEGIN ON 3RD DAY OF CYCLE CONTINUE FOR 5 DAYS, # 10 tablet, 3 Refills, Maintenance, 03/29/22 15:57:00 EST, [facility], Partial fill upon patient request if the prescription is for a schedule II op... Start Date: 03/29/22 Stop Date: 04/18/22 Status: Ordered ondansetron 4 mg oral tablet, disintegrating 1 tablet = 4 mg, By Mouth, Every 8 hours, PRN as needed for nausea/vomiting, # 10 tablet, 0 Refills, Maintenance, 05/09/22 8:13:00 EST, DIS Tablet, [facility], Partial fill upon patient request if the prescription is for a schedule... Start Date: 05/09/22 Status: Ordered oxyCODONE 5 mg oral tablet 5 mg, 1, tablet, By Mouth, Every 6 hours, PRN, # 5 tablet, Refills 0, Tot. Refills 0, Maintenance, Pain , Severe, 05/06/22 15:16:00 EST, Route to Pharmacy Electronically, [facility]/pharmacy #[id number], Partial fill upon patient request if the [...] 05/09/22 8:11:00 EST, Route to Pharmacy Electronically, [facility], Partial fill upon patient request if the prescri... Start Date: 05/09/22 Status: Ordered Problem List Condition Confirmation Course Effective Dates Status Health St [facility] Informant Secondary tubal infertility Confirmed Active Social History Social History Type Response Smoking Status Never (less than 100 in lifetime) entered on: 08/21/18 Sex Patient Care team information Care Team Personnel Name: Not on Staff, PCP Position: [facility] Physician (General Medicine) Member Role: PCP Name: Marina Rios RN Position: [facility] RN Member Role: Primary Care Nurse Name: Lenora Snyder RN Position: [facility] RN Member Role: Primary Care Nurse Name: Sangeetha Ann RN Position: [facility] RN Member Role: Primary Care Nurse Care Team Related Persons Name: RTIA BUNN Address: home [address] [place] [address] [place] [id number]
--- OUTSIDE RECORDS SUMMARY | 2022-10-01 15:27 | XMS_ITS | Continuity of Care Document ---
Author Name Unknown Organization [facility] e Medicine Address Unknown Care Team Providers Care Machine Bobbin Winder Name Role Phone Not on Staff, PCP Primary Care Physician Unavail able [place] [facility] 07/08/21 - 07/15/21 [facility] Reproductive Medicine Attending Physician: Oadlis Deleon MD Referring Physician: Vikki Pisano MD [...] 07/18/21 15:51:00 EDT, 07/08/21 15:51:00 EDT, Capsule, [facility], Partial fill upon pat... Start Date: [...] oldest [Reference Range]: 1 Height 157.48 cm (07/08/21 3:10 PM) Weight 63.0 kg (07/08/21 3:10 PM) Pulse Rate [55-90 bpm] 82 bpm (07/08/21 3:10 PM) Body Mass Index [18.5-24.99] 25.4 *H* (07/08/21 3:10 PM) Blood Pressure [90-138/55-84 mm Hg] 113/ 67mm Hg (07/08/21 3:10 PM) Blood pressure sites Arm, right (07/08/21 3:10 PM) Weight Obtained Via Standing scale (07/08/21 3:10 PM) Social History Social History Type Response Smoking Status Never (less than 100 in lifetime) entered on: 08/21/18 Sex
--- OUTSIDE RECORDS SUMMARY | 2022-10-01 15:27 | XMS_ITS | Continuity of Care Document ---
Author Name Unknown Organization [facility] Medicine Address [address], [address]t [address] [place] [address]- Care Team Providers Care Home Energy Inspector Name Role Phone Not on Staff, PCP Primary Care Physician Unavail able Encounter [facility] Date(s): 04/25/22 - 05/02/22 [facility] Reproductive Medicine [address], [address]th [address] [place] [address]- Attending Physician: Not on Staff, Attending MD [...] Date: 03/29/22 Status: Ordered chorionic gonadotropin (HCG) 16772 u injectable powder for injection = 10,000 units, Subcutaneous Injection, Once, TAKE SUBCUTANEOUS INJECTION ONCE PER CYCLE WHEN DIRECTED, # 1 each, 3 Refills, Soft Stop, 03/29/22 16:00:00 EST, [facility], Partial fill upon patient [...] 10 tablet, 3 Refills, Maintenance, 03/29/22 15:57:00 [facility], [facility], Partial fill upon patient request [...] Persons Name: IRENE QIU Address: home [address] [place] [id number] Name: RITA BUNN Address: home [address] [place] [address]
--- OUTSIDE RECORDS SUMMARY | 2022-10-01 15:27 | XMS_ITS | Continuity of Care Document ---
Author Name Unknown Organization [facility] e Medicine Address [address], [address] [place] [address]- Care Team Providers Care Sterilization Tech Name Role Phone Not on Staff, PCP Primary Care Physician Unavail able Encounter [facility] Date(s): 09/08/22 - 09/15/22 [facility] Reproductive Medicine [address] [place] [id number] Attending Physician: Nat Barraza MD Allergies, Adverse Reactions, [...] Date: 03/29/22 Status: Ordered chorionic gonadotropin (HCG) 28024 u injectable powder for injection = 10,000 units, Subcutaneous Injection, Once, TAKE SUBCUTANEOUS INJECTION ONCE PER CYCLE WHEN DIRECTED, # 1 each, 3 Refills, Soft Stop, 03/29/22 16:00:00 EST, [facility], Partial fill upon patient request if the prescription is for a... Start Date: 03/29/22 Status: Ordered ibuprofen 800 mg oral tablet 800 mg, 1, tablet, By Mouth, Every 8 hours, PRN, # 30 tablet, Refills 0, Tot. Refills 0, Maintenance, Pain , Mild, 05/09/22 8:11:00 EST, Route to Pharmacy Electronically, [facility], Partial fill upon patient request if the prescri... Start Date: 05/09/22 Status: Ordered letrozole 2.5 mg oral tablet 2 tablet = 5 mg, By Mouth, Daily, BEGIN ON 3RD DAY OF CYCLE CONTINUE FOR 5 DAYS, # 10 tablet, 3 Refills, Maintenance, 03/29/22 15:57:00 EST, [facility], Partial fill upon patient request if the prescription is for a schedule II op... Start Date: 03/29/22 Stop Date: 04/18/22 Status: Ordered ondansetron 4 mg oral tablet, disintegrating 1 tablet = 4 mg, By Mouth, Every 8 hours, PRN as needed for nausea/vomiting, # 10 tablet, 0 Refills, Maintenance, 05/09/22 8:13:00 EST, DIS Tablet, [facility], Partial fill upon patient request if the prescription is for a schedule... Start Date: 05/09/22 Status: Ordered oxyCODONE 5 mg oral tablet 5 mg, 1, tablet, By Mouth, Every 6 hours, PRN, # 5 tablet, Refills 0, Tot. Refills 0, Maintenance, Pain , Severe, 05/06/22 15:16:00 EST, Route to Pharmacy Electronically, [facility]/pharmacy #[id number], Partial fill upon patient request if the [...] 05/09/22 8:11:00 EST, Route to Pharmacy Electronically, [facility], Partial fill upon patient request if the prescri... Start Date: 05/09/22 Status: Ordered Problem List Condition Confirmation Course Effective Dates Status Health St atus Informant Secondary tubal infertility Confirmed Active Vital Signs Most recent to oldest [Reference Range]: 1 Height 157.48 cm (09/08/22 3:04 PM) Weight 63.1 kg (09/08/22 3:04 PM) Pulse Rate [55-90 bpm] 122 bpm *H* (09/08/22 3:04 PM) Body Mass Index [18.5-24.99 kg/m2] 25.44 kg/m2 *H* (09/08/22 3:04 PM) Blood Pressure [90-138/55-84 mm Hg] 122/ 74mm Hg (09/08/22 3:04 PM) Respiratory Rate [16-30 br/min] 74 br/mi n *H* (09/08/22 3:04 PM) Blood pressure sites Arm, right (09/08/22 3:04 PM) Weight Obtained Via Standing scale (09/08/22 3:04 PM) Social History Social History Type Response Smoking Status Never (less than 100 in lifetime) entered on: 08/21/18 Sex Note * Hubert Lozano MA: PERFORM, SIGN, VERIFY Event Display: Patient Education/Instruction Authored Date: [id number] [facility] *[facility] Clinical Summary Name NEEL NIXON Age 31 Years 1990 PCP Not on Staff, PCP PCP Phone Visit Date 09/08/2022 14:40:00 Additional Instructions: Scheduled Appointments?? Future Appointments ?*[facility] ?Phone:??--?Fax:??-- ?Appt. Date:??10/04/2022?8:45 AM ?Scheduled Provider:??IUIG Follow-Up Instructions ?? Diagnosis Encounter for other general counseling and advice on procreation; Recurrent loss; Female infertility of tubal origin Medications: Please continue your medications until treatment [...] Dose: Chorionic Gonadotropin (Human) (chorionic gonadotropin (HCG) 99959 u injectable powder for injection) 10,000 unit(s) Subcutaneous Injection once. TAKE SUBCUTANEOUS INJECTION ONCE PER CYCLE WHEN DIRECTED. Refills: 3. Next Dose: Ibuprofen (ibuprofen 800 mg oral tablet) 1 tab(s) Oral every 8 hours as needed Pain , Mild. Refills: 0. Next Dose: Letrozole (letrozole 2.5 mg oral tablet) 2 tab(s) Oral Daily for 5 Days. BEGIN ON 3RD DAY OF CYCLE CONTINUE FOR 5 DAYS. Refills: 3. Next Dose: Miscellaneous Rx (27G [...] orders Vital Signs Height 157.48 cm Weight 63.1 kg BMI 25.44 kg/m2 Blood Pressure 122 mm Hg/74 mm Hg Temperature Pulse Rate 122 bpm Respiratory Rate 74 br/min 02 Sat Mode of Delivery / You can now view a summary of your hospital visit from the comfort of your home through a free online portal called [employer]. [employer] is a website that allows you to securely view your medical information including discharge summary, medications and follow-up visits. ??You can alsosend a secure electronic message to your doctor???s office to request appointments, renew medications or just ask a question. You can enroll at [email or web address] or register during your next office visit. [...] care provider, you may find a [facility] provider by calling [facility] Link at [phone]. For information about the plan of care including goals and instructions for your diagnosis, please see the patient education orders section of this document. Patient Education Materials?? The content of this educational material or handout may have been modified, supplemented, or adapted from its original content and format to support your individualized medical care. Additional Provider Instructions: US booked at providers request. Pt to decide how to proceed afterUS Patient Care team information Care Team Personnel Name: Not on Staff, PCP Position: [facility] Physician (General Medicine) Member Role: PCP Name: Marina Rios RN Position: S RN Member Role: Primary Care Nurse Name: Lenora Snyder RN Position: S RN Member Role: Primary Care Nurse Name: Sangeetha Ann RN Position: S RN Member Role: Primary Care Nurse Care Team Related Persons Name: RITA BUNN Address: [address] [address]
== END 2022-10-01 15:47 | disposition home or self-care (01) ==
PROVIDERS: Physician Assistant; Emergency Provider Emergency Medicine
DX: N39.0 Urinary tract infection, site not specified (principal); B96.20 Unspecified Escherichia coli [E. coli] as the cause of diseases classified elsewhere; Z79.899 Other long term (current) drug therapy
CPT/HCPCS: 81001; 81025; 87086; 87088; 87186; 99282; 99283

== ENCOUNTER 2022-10-07 15:12 | Outpatient (REF) | payer MEDICAID, SELFPAY ==
--- NOTE | ~2022-10-07 | US_ITS ---
EXAMINATION: US RETROPERITONEAL LIMITED (RENAL ONLY) CLINICAL INFORMATION: Low back pain, UTI. COMPARISON: CT abdomen and pelvis 03/31/2014. TECHNIQUE: Real-time imaging of the kidneys. FINDINGS: RIGHT KIDNEY: 10.2 x 3.4 x 4.0 cm (SAG x AP x TRV). The kidney is normal in size, contour, and echogenicity. Renal cortical thickness is normal. No calculi or focal parenchymal lesions. No hydronephrosis. LEFT KIDNEY: 10.4 x 4.4 x 4.1 cm (SAG x AP x TRV). The kidney is normal in size, contour, and echogenicity. Renal cortical thickness is normal. No calculi or focal parenchymal lesions. No hydronephrosis. US/US renal BI IMPRESSION: Unremarkable exam. No stones or obstructive uropathy..
== END 2022-10-07 15:13 | disposition home or self-care (01) ==
LOC: HO.US 15:12
PROVIDERS: PCP Registered Nurse; Visit Provider Registered Nurse
DX: N39.0 Urinary tract infection, site not specified (principal); M54.50 Low back pain, unspecified
CPT/HCPCS: 76775

== ENCOUNTER 2022-12-15 12:46 | Outpatient (AMB) | payer MEDICAID, SELFPAY ==
--- NOTE | 2022-12-15 12:54 | MHC.OFFVIS ---
Intake Vital Signs 12/15/22 12:56 Height 5 ft 3.5 in Weight 136 lb 10.986 oz BMI 23.8 BP 110/62 Blood Pressure Location Lt brachial Position Sitting Pulse 67 Intake Visit Reasons: NPV/Palpitations/HHC Intake Note: New patient c/o heart racing at rest and with activity Inspector Rag Sorting Required: Yes Inspector Rag Sorting Name: Landry george Allergies No Known Allergies [No Known Allergies*] Allergy (Verified 10/01/22 14:56) Medication List - Last Reconciled 12/15/22 by Abdifatah Elias MD ibuprofen 600 mg PO Q8H PRN HPI HPI Comments History of Present Illness Details Michael was referred here for consultation for palpitation. She does 32-year-old female with no significant past medical history. Will last 3 months she has been having a increasing symptoms of palpitations. History was obtained with help of silver designer. Patient says the symptoms of palpitations are consistent with rapid heart rate that started suddenly. There are no clear exacerbating or triggering factors. Patient then can get lightheaded and short of breath. Symptoms can last for few minutes. She then just rest and take slow deep breath and the symptoms usually subside. However she is very bothered by the symptoms. There is no clear change in her health recently. Denies any excessive caffeine or alcohol intake. Denies any increased stress or any new jskf-snn-nustxio medications or supplements. She denies any new exertional symptoms. [facility] Medical History No known health problems Surgical History Hx of hand surgery Family History Father No problems noted. Mother No problems noted. Maternal Grandfather CAD (coronary artery disease) Maternal Grandmother CAD (coronary artery disease) Social History Patient Tobacco Use Status: Never used Tobacco Review of Systems Const Denies chills, Denies daytime sleepiness, Denies fatigue, Denies fever(s), Denies frequent falls, Denies poor appetite, Denies snoring, Denies stops breathing during sleep, Denies weakness, Denies weight gain and Denies weight loss Eyes Denies loss of vision ENT Denies dizziness and Denies hearing loss Card Denies chest pain, Denies claudication, Denies leg edema, Denies lightheadedness, Denies palpitations, Denies dyspnea, Denies dyspnea on exertion and Denies orthopnea Resp Denies cough, Denies excessive phlegm production, Denies dyspnea, Denies dyspnea on exertion, Denies snoring and Denies wheezing GI Denies abdominal pain, Denies hematochezia, Denies change in bowel habits, Denies nausea and Denies vomiting Denies urinary frequency and Denies dysuria Musc Denies arthralgias, Denies muscle weakness, Denies numbness and Denies other (frequent falls) Skin/Breast Denies nail changes and Denies rash Neuro Denies Abnormal speech present, Denies dizziness, Denies frequent falls, Denies loss of vision, Denies memory loss, Denies numbness and Denies weakness Psych Denies depression and Denies memory loss Endo Denies fatigue and Denies palpitations Rao/Lymph Reports easy bruising and Reports other (anemia) Aller/Immun Denies wheezing Physical Exam Vital Signs: Last Vital Signs Pulse 67 12/15/22 12:56 BP 110/62 12/15/22 12:56 BMI result Body Mass Index 23.8 Const General: cooperative, comfortable, no acute distress, alert, awake and Physically active Nutritional Appearance: average body habitus and well nourished Orientation/consciousness: patient oriented x3 Limitations: no limitations HEENT Head: Yes normocephalic and Yes atraumatic Neck Neck: Yes trachea midline and Yes no JVD Resp Effort & Inspection: normal respiratory effort Auscultation: clear to auscultation bilaterally Cardio Jugular venous distension: no JVD Palpation: normal PMI Rate: regular rate Rhythm: regular rhythm Heart sounds: S1 normal heart sound present, S2 normal heart sound present, no click, no gallops, no murmurs and no rubs GI Auscultation: normal bowel sounds Skin General skin exam: no rashes or lesions noted Neuro General: patient oriented x3 and no focal motor deficits Speech: No Abnormal speech present Extrem General: Yes no clubbing, cyanosis or edema Psych Appearance: grossly normal Office Procedures EKG Details: EKG shows normal sinus rhythm with normal EKG. [id number], Complete Assessment & Plan Assessment & Plan (1) Palpitations: Code(s): R00.2 - Palpitations Plan: Recent onset symptoms of palpitations. S palpitation most suggestive of arrhythmias such as SVT. Less likely that they represent extra systoles and/or atrial fibrillation/flutter. Inappropriate sinus tachycardia is a possibility. Given that the symptoms apnea her daily basis will obtain of 48 overall the monitor to assess for the same. Also advised an echocardiogram to assess for cardiac structure and function. She has had recent blood work done through your office, will obtain the reports to evaluate for electrolytes and TSH. Will follow up in the clinic after above-mentioned test. Thank you for allowing me to partake in the care Orders: Orders CA echo transthoracic complete Today R00.2 - Palpitations ECG holter monitor 48 hour Today R00.2 - Palpitations Coding Level of Care Code Tele New Pt Level 3 (17048) Diagnoses Palpitations R00.2 CPT Codes EKG - CPT: 60567-[id number], Complete ([id number])
[2022-12-15 12:56] VITALS: BP 110/62; PULSE 67; BMI 23.8
== END 2022-12-15 13:26 | disposition home or self-care (01) ==
PROVIDERS: Visit Provider Internal Medicine Cardiovascular Disease
DX: R00.2 Palpitations (principal)
CPT/HCPCS: 93010; 99203

== ENCOUNTER → 2022-12-15 12:46 | Outpatient (BNVA) | payer MEDICAID, SELFPAY | PROVIDERS: Visit Provider Internal Medicine Cardiovascular Disease | DX: R00.2 Palpitations (principal) | CPT/HCPCS: 93005; 99202 ==

== ENCOUNTER → 2023-01-11 14:02 | Outpatient (REF) | payer MEDICAID, SELFPAY ==
--- NOTE | 2023-01-11 14:06 | CA_ITS ---
Transthoracic Echocardiogram Patient (Last, First, Middle): Michael Rodas, Gender: Female Date of : 1990 Age: 32 Procedure Date: 01/11/2023 Procedure Type: Transthoracic Echocardiogram Location: OP Height: 157.48 cm Weight: 61.24 kg BSA: 1.62 m2 Heart Rate: bpm BP: 110 / 68 mmHg Director Hematology: TO Referring MD: Abdifatah Elias MD Track Dresser: Abdifatah Elias MD Symptoms: R00.2 - Palpitations Study Quality: Adequate ECG Rhythm: Sinus Conclusions: - Normal study Findings Left Ventricle Normal left ventricular size, thickness, and systolic function. The visually estimated ejection fraction is between 65-70%. Diastolic function is normal for age. Peak GLS is -23.5%, within normal limits Right Ventricle Normal right ventricular cavity size and systolic function. Atria Both atria are normal in size. There is no evidence of interatrial shunt. Aortic Valve Normal aortic valve structure and function. There is no aortic valve stenosis. There is no aortic valve regurgitation. Mitral Valve Normal mitral valve structure and function. There is trace mitral valve regurgitation. There is no mitral valve stenosis. Pulmonic Valve The pulmonic valve is normal. There is trace pulmonic valve regurgitation. Tricuspid Valve Normal tricuspid valve structure. There is mild tricuspid valve regurgitation. The right ventricular systolic pressure is normal. The right ventricular systolic pressure is 23 mmHg. Normal right atrial pressure. There is no evidence of pulmonary hypertension. Great Vessels All visible segments of the aorta are normal in size. The visualized portions of the pulmonary artery and branches are normal. Venous The inferior vena cava is normal in size and collapses greater than 50% with inspiration. Pericardium/Pleural There is no evidence of pericardial effusion. Measurements 2D Linear Measurements IVSd: 0.80 0.6-0.9/0.6-1.0 cm LVIDd: 4.20 3.9-5.3/4.2-5.9 cm LVIDd Index: 2.59 2.4-3.2/2.2-3.1 cm/m2 LVIDs: 2.60 2.0-3.6 cm LVPWd: 0.80 0.7-1.1 cm LA Diam: 3.00 2.7-3.8/3.0-4.0 cm LAIDs Index: 1.85 1.5-2.3 cm/m2 LV Mass: 125.86 67-162/88-224 g LV Mass Index: 77.69 43-95/49-115 g/m2 LVOT Diam: 1.80 3.0+(-)1.3 cm 2D Systolic Function EF 4C: 66.20 >55% EF 2C: 65.30 >55% EF BiP: 65.90 >55% Mitral Valve MV Pk E: 0.88 MV PK A: 0.27 MV Decel Time: 225.00 E/A: 3.30 E'Lateral: 14.30 E'Medial: 11.90 E/E' Med: 7.40 E/E' Lat: 6.20 PHT: 66.00 MVA PHT: 3.33 Decel Carlton: 3.93 Aortic Valve AoV Pk Pascual: 1.34 AoV Mn Pascual: 0.88 AoV VTI: 0.28 AoV Pk Grad: 7.00 Aov Mn Grad: 4.00 LINDA Cont.VTI: 2.01 LVOT LVOT Pk Pascual: 1.07 LVOT Mn Pascual: 0.73 LVOT VTI: 0.22 LVOT Pk Grad: 5.00 LVOT Mn Grad: 2.00 LVOT Diam: 1.80 LVOT Area: 2.54 Diastolic Function MV Pk E: 0.88 MV Pk A: 0.27 E/A: 3.30 E'Medial: 11.90 E/E' Med: 7.40 E' Laterial: 14.30 E/E' Lat: 6.20 Right Ventricle TAPSE (mm): 23.30 TVS' Pascual: 12.60 Tricuspid Valve TR Pk Pascual: 2.26 TR Pk Grad: 20.00 RA Press: 3.00 RVSP: 23.00 Great Vessels Aorta Sinus of Valsalva: 2.40 2.0-3.5 cm Ao Asc: 2.30 2.1-3.4 cm Updated in Other Vendor System with Status of Final Abdifatah Elias MD electronically signed on 01/12/2023 11:08:09 AM with status of Final
--- NOTE | 2023-01-11 14:06 | HM_ITS ---
Conclusion: 1. Patient was monitored for total period of 2 days 2. Baseline was normal sinus rhythm with average heart of 76 beats per minute 3. No significant pauses noted 4. No significant arrhythmias detected 5. Patient reported 80 events, 5 of which were shortness of breath correlating sinus rhythm and 3 of which were racing heart correlated with sinus tachycardia. MTDD
== END ==
LOC: HO.CARD 14:02
PROVIDERS: Visit Provider Internal Medicine Cardiovascular Disease
DX: R00.2 Palpitations (principal)
CPT/HCPCS: 93225; 93306; 93356

== ENCOUNTER → 2023-01-11 14:06 | Outpatient (BNV) | payer MEDICAID, SELFPAY | PROVIDERS: Visit Provider Internal Medicine Cardiovascular Disease | DX: R00.0 Tachycardia, unspecified (principal) | CPT/HCPCS: 93227; 93306 ==

== ENCOUNTER 2023-02-10 13:14 | Outpatient (REF) | payer MEDICAID, SELFPAY | END 2023-02-10 13:15 | disposition home or self-care (01) | LOC: HO.LNP 13:14 | PROVIDERS: Visit Provider Nurse Practitioner | DX: Z13.89 Encounter for screening for other disorder (principal) ==

== ENCOUNTER 2023-03-10 11:33 | Emergency (ER) | payer MEDICAID, SELFPAY ==
[2023-03-10 11:44] VITALS: BP 119/71; PULSE 77; RESP 16; TEMP 36.7; O2SAT 98; BMI 24.1
--- NOTE | 2023-03-10 11:47 | ED_ITS ---
HPI - General Adult General Chief complaint: Nausea/Vomiting/Diarrhea Stated complaint: disoriented, nausea Time Seen by Provider: 03/10/23 13:35 Source: patient, RN notes reviewed and old records reviewed Mode of arrival: ambulatory History of Present Illness HPI narrative: 32-year-old female with a past medical history of left fallopian tube removal, presenting to the ED complaining of nausea, decreased p.o. intake, and watery diarrhea x2 weeks s/p eating Mekhi with salmon and spinach. Admits to red tinged stool x2 days. Also reports associated dizziness earlier today, resolved at present. States with similar symptoms just not as severe. Denies taking any AC, abdominal pain, fever, recent travel, vomiting, dysuria/hematuria. denies recent antibiotic use Related Data Previous Rx's Medication Instructions Recorded ibuprofen 600 mg tablet 600 mg PO Q8H PRN pain #30 tabs 12/04/20 ondansetron 4 mg disintegrating 4 mg PO Q8H PRN nausea and 03/10/23 tablet vomiting #10 tabs Allergies Allergy/AdvReac Type Severity Reaction Status Date / Time No Known Allergies Allergy Verified 03/10/23 11:42 [No Known Allergies*] Review of Systems 2 Review of Systems: Constitutional: No Fever, +Chills, No Fatigue, No Malaise ENT/Mouth: No Ear Pain, No Nasal Congestion, No Sinus Pain, No sore throat, No Rhinorrhea, No Swallowing Difficulty Eyes: No Eye Pain, No Swelling, No Redness, No Vision Changes Cardiovascular: No Chest Pain, No SOB Respiratory: No Cough, No Sputum, No Dyspnea Gastrointestinal: +Nausea, No Vomiting, No Diarrhea, No Constipation, No Abdominal pain, + Hematochezia, No Melena Genitourinary: No irregular bleeding, No Dysuria, No Urinary Frequency, No Hematuria, No Urinary Incontinence/retention, No Flank Pain Musculoskeletal: No joint pain, No Myalgias, No Joint Swelling Skin: No Skin Lesions, No rash Neuro: No Weakness, +Dizziness (resolved), No Headache Yes all other systems are reviewed and are negative Constitutional: Constitutional: Reports as per HPI Neurologic: Denies Abnormal speech present PMFSH Past Medical History Attestation statement: The following information was validated with the patient. Source: old records reviewed Medical History No known health problems Surgical History Hx of hand surgery Family History Family History Father No problems noted. Mother No problems noted. Maternal Grandfather CAD (coronary artery disease) Maternal Grandmother CAD (coronary artery disease) Social History Alcohol intake: never Patient Tobacco Use Status: Never used Tobacco Smoked in Last 30 Days: No Use of substances other than those prescribed or required for medical reasons: No Advance Directives: No Physical Exam ED Vital Signs: Vital Signs - 24 hr 03/10/23 11:44 03/10/23 13:43 03/10/23 15:30 Temperature 98.1 F 98.2 F Pulse Rate 77 82 83 Respiratory Rate 16 18 16 Blood Pressure 119/71 112/65 116/64 Pulse Oximetry 98 98 98 Oxygen Delivery Method Room Air Room Air Room Air BMI result Body Mass Index 24.1 Const General: cooperative, healthy appearing and no acute distress Orientation/consciousness: patient oriented x3 Limitations: no limitations HENMT Head: Yes normal to inspection and Yes atraumatic Ears: hearing grossly normal bilaterally General nose exam: Normal external nose present Face and sinus: Yes normal facial exam Eyes General: appearance normal, both eyes and all related structures EOM: EOMs intact bilaterally Neck Neck: Yes normal visual inspection and Yes no meningeal signs Resp Effort & Inspection: normal respiratory effort and no respiratory distress Auscultation: clear to auscultation bilaterally Cardio Rate: regular rate Heart sounds: S1 normal heart sound present and S2 normal heart sound present GI Inspection: Yes normal to inspection Palpation (GI): Soft to palpation, nontender, no guarding and not rigid General: Yes no CVA tenderness Back/Spine/Pelvis Back: no CVA tenderness Skin Rashes: no rashes Wounds: no wounds Neuro General: patient oriented x3, gait normal, tone normal, moves all extremities, no meningeal signs, no focal motor deficits and CN's II-XI intact bilaterally Cranial nerves: Yes CN's II-XII intact bilaterally Cognition (Neuro): normal cognition Speech: No Abnormal speech present Gait exam (Neuro): Normal gait present Extrem General: Yes normal to inspection Course Course Course Narrative: This is a rapid medical exam: Additional HPI, ROS, PE not included below will be deferred to primary provider. Patient is a 32-year-old female presenting to the emergency department with complaint of nausea, increased bowel movements, 8lb weight loss, gurgling stomach for the past 2 weeks. Vomiting yesterday. States symptoms began after she made fettucini mekhi with salmon. Plan: labs, UA, GI panel -1615--no leukocytosis. Labs otherwise reassuring -UA with 80 ketones, not infected -patient unable to provide stool sample, occult stool negative -1620--patient tolerating p.o. in the ED without nausea/vomiting or diarrhea. Unable to provide stool sample. Abdomen remains soft and nontender. Provided patient with outpatient lab slip for stool studies. Feels comfortable for discharge home with antinausea medication and close PCP follow-up Medications Administered Discontinued Medications Generic Name Dose Route Start Last Admin Trade Name Freq PRN Reason Stop Dose Admin Sodium Chloride 1,000 mls @ 999 mls/hr 03/10/23 13:45 03/10/23 15:20 Ns IV 03/10/23 14:45 Infused .Q1H1M ANDRAE Infusion Ondansetron HCl 4 mg 03/10/23 13:56 03/10/23 14:20 Ondansetron Hcl 4 Mg/2 Ml Vial IVPUSH 03/10/23 13:57 4 mg ONCE ONE Administration Medical Decision Making Medical Decision Making [facility] Narrative: 32-year-old female with a past medical history of left fallopian tube removal, presenting to the ED complaining of nausea, decreased p.o. intake, and watery diarrhea x2 weeks s/p eating Mekhi with salmon and spinach. Admits to red tinged stool x2 days. On exam vital signs stable, NAD, nontoxic appearing, no focal neuro deficits, abdomen soft/nontender. Concern for food poisoning vs gastroenteritis vs diverticulitis/colitis vs GI bleed. Lower suspicion for appendicitis, cholecystitis/lithiasis or pancreatitis without tenderness on exam. Rule out metabolic abnormalities Plan: Labs, UA, stool studies/C diff and occult stool, IVF, antiemetic, p.o. trial Please refer to course for remaining clinical decision making, interpretation of labs/imaging results, and discussions with consultants and/or family members. Differential Diagnosis Differential Diagnoses: The differential diagnosis associated with the presentation includes As above Admission/Observation Consideration of admission/observation: Escalation of care including admission/observation considered Lab Data MDM Lab Attestation statement: I reviewed the patient's lab results. 03/10/23 11:55 03/10/23 11:55 Labs: Lab Results 03/10/23 03/10/23 03/10/23 Range/Units 11:55 15:43 16:06 WBC 6.7 (4.8-10.8) X10*3/uL RBC 4.73 (4.20-5.50) X10*6/uL Hgb 14.0 (12.0-16.0) g/dl Hct 41.2 (37.0-47.0) % MCV 87.1 (80.0-98.0) fL MCH 29.6 (27.0-33.0) pg MCHC 34.0 (31.0-35.0) g/dl RDW 11.9 (11.0-16.0) % Plt Count 261 (160-400) X10*3/uL MPV 10.5 (9.4-12.3) fL Immature Gran % (Auto) 0.1 (0.0-0.4) % Neut % (Auto) 72.6 (45-73) % Lymph % (Auto) 20.3 (20-40) % Carver % (Auto) 6.0 (2-11) % Eos % (Auto) 0.7 (0-4) % Baso % (Auto) 0.3 (0-2) % Lymph # (Auto) 1.4 (1.2-4.9) X10*3/uL Carver # (Auto) 0.4 (0.1-1.2) X10*3/uL Eos # (Auto) 0.1 (0.0-0.4) X10*3/uL Baso # (Auto) 0.0 (0.0-0.2) X10*3/uL Abs Immat Gran (auto) 0.01 (0.00-0.03) X10*3/uL Absolute Neuts (auto) 4.9 (2.0-8.3) x10*3/uL Absolute Nucleated RBC 0.000 (0.0-0.012) X10*3/uL Nucleated RBC % (auto) 0.0 (0.0-0.2) /100WBC Sodium 141 (135-145) mmol/L Potassium 3.9 (3.3-5.1) mmol/L Chloride 108 (96-108) mmol/L Carbon Dioxide 26 (22-29) mmol/L Anion Gap 11 L (12-20) BUN 9 (9-16) mg/dL Creatinine 0.78 (0.5-1.4) mg/dL Estim Creat Clear Calc 82.6 Estimated GFR > 60 Random Glucose 78 (60-115) mg/dL Calcium 9.2 (8.4-10.2) mg/dL Magnesium 1.9 (1.6-2.6) mg/dL Total Bilirubin 0.9 (0.0-1.0) mg/dL AST 13 (5-31) U/L ALT 9 (0-31) U/L Alkaline Phosphatase 32 L (39-117) U/L Total Protein 7.6 (6.5-8.0) g/dL Albumin 4.2 (3.5-5.0) g/dL Lipase 11 (8-78) U/L Beta HCG, Quant < 2 mIU/mL Urine Color Yellow Urine Appearance Clear Urine pH 6.0 (5.0-9.0) Ur Specific [place] 1.015 (1.005-1.025) Urine Protein Negative (Neg-Trace) mg/dL Urine Glucose (UA) Negative (Negative) mg/dL Urine Ketones 80 (Negative) mg/dL Urine Blood Negative (Negative) Urine Nitrite Negative (Negative) Ur Leukocyte Esterase Negative (Negative) Stool Occult Blood NEGATIVE (NEGATIVE) Radiology Impression Discussion of test interpretation with radiology: I have reviewed the radiologist's reading. External Record Review External record reviewed: Inpatient record, Office record, Outpatient record, Prior outpatient labs, Prior outpatient radiology, Primary care record and Outside ED record Tests considered The following testing was considered but not selected: As above Discharge Plan Discharge Clinical Impression: Gastroenteritis Patient Disposition: Home, Self-Care Instructions: Gastroenteritis (DC) Additional Instructions: Bring stool to your doctor for testing Zofran as antinausea medicine please take as needed for nausea/vomiting Make sure you are staying hydrated If your unable to eat or drink persistent nausea, vomiting, diarrhea, or unbearable pain return to the ED Prescriptions: New ondansetron 4 mg tablet,disintegrating 4 mg PO Q8H PRN (Reason: nausea and vomiting) Qty: 10 0RF No Action ibuprofen 600 mg tablet 600 mg PO Q8H PRN (Reason: pain) Qty: 30 0RF Referrals: [facility] [Primary Care Provider] - Interventions: ED Discharge Assessment Last Done: 03/10/23 16:29 Discharge Date/Time: 03/10/23 16:35
[2023-03-10 12:01] LABS: MANUAL DIFF FLAG NO
[2023-03-10 12:04] LABS: Basophils Percent Auto 0.3 % (0-2); Eosinophils Absolute Auto 0.1 X10*3/uL (0.0-0.4); Eosinophils Percent Auto 0.7 % (0-4); Hematocrit 41.2 % (37.0-47.0); Imm Gran Abs Auto 0.01 X10*3/uL (0.00-0.03); Imm Gran Pct Auto 0.1 % (0.0-0.4); Lymphocytes Absolute Auto 1.4 X10*3/uL (1.2-4.9); Lymphocytes Percent Auto 20.3 % (20-40); Mean Corpuscular Hemoglobin 29.6 pg (27.0-33.0); Mean Corpuscular Volume 87.1 fL (80.0-98.0); Mean Platelet Volume 10.5 fL (9.4-12.3); Monocytes Absolute Auto 0.4 X10*3/uL (0.1-1.2); Neutrophils Absolute Auto 4.9 x10*3/uL (2.0-8.3); Neutrophils Percent Auto 72.6 % (45-73); Platelet Count 261 X10*3/uL (160-400); Red Blood Count 4.73 X10*6/uL (4.20-5.50); Red Cell Distribution Width 11.9 % (11.0-16.0); White Blood Count 6.7 X10*3/uL (4.8-10.8)
[2023-03-10 12:35] LABS: Alanine Aminotransferase 9 U/L (0-31); Albumin Level 4.2 g/dL (3.5-5.0); Alkaline Phosphatase 32 U/L (39-117); Anion Gap 11 (12-20); Aspartate Amino Transferase 13 U/L (5-31); Bilirubin Total 0.9 mg/dL (0.0-1.0); Blood Urea Nitrogen 9 mg/dL (9-16); Calcium 9.2 mg/dL (8.4-10.2); Carbon Dioxide 26 mmol/L (22-29); Chloride 108 mmol/L (96-108); Creatinine Clr Calc Pharmacy 82.6; Estimated Glomerular Filt Rate > 60; Glucose Random 78 mg/dL (60-115); HCG Quantitative < 2 mIU/mL; Potassium 3.9 mmol/L (3.3-5.1); Sodium 141 mmol/L (135-145); Total Protein 7.6 g/dL (6.5-8.0)
[2023-03-10 13:43] VITALS: BP 112/65; PULSE 82; RESP 18; O2SAT 98
[2023-03-10] MEDS: 0.9 % Sodium Chloride 1,000 ML 999 ML IV (13:55)
[2023-03-10 14:08] LABS: Lipase 11 U/L (8-78); Magnesium 1.9 mg/dL (1.6-2.6)
[2023-03-10] MEDS: ondansetron HCL 4 MG/2 ML VIAL IVPUSH (14:20)
[2023-03-10 15:30] VITALS: BP 116/64; PULSE 83; RESP 16; TEMP 36.8; O2SAT 98
[2023-03-10 15:50] LABS: Appearance Urine Clear; Color Urine Yellow; Glucose Urine UA Negative (Negative); Leukocyte Esterase Urine Negative (Negative); Nitrite Urine Negative (Negative); Specific Gravity - Urine 1.015 (1.005-1.025); Urine Blood Negative (Negative); Urine Ketones 80 mg/dL (Negative); Urine Protein Negative (Neg-Trace)
--- NOTE | 2023-03-10 15:53 | MHC.EDTECH ---
This pct assumed care of Patient at 1500 ,vitals taken ,urine sample collected and sent to lab .
[2023-03-10 16:11] LABS: OBS Int Ctl Valid YES; OBS1 NEGATIVE (NEGATIVE)
== END 2023-03-10 16:35 | disposition home or self-care (01) ==
PROVIDERS: Physician Assistant; Registered Nurse Emergency; Emergency Provider Emergency Medicine
DX: K52.9 Noninfective gastroenteritis and colitis, unspecified (principal); R11.2 Nausea with vomiting, unspecified; Z79.899 Other long term (current) drug therapy
CPT/HCPCS: 36415; 80053; 81003; 82272; 83690; 83735; 84702; 85025; 96361; 96374; 99284; J2405

== ENCOUNTER 2023-03-20 18:41 | Emergency (ER) | payer MEDICAID, SELFPAY ==
[2023-03-20 21:08] VITALS: BP 117/68; PULSE 69; RESP 18; TEMP 36.8; O2SAT 96; BMI 24.3
--- NOTE | 2023-03-20 21:14 | ED.GENADULT ---
HPI - General Adult General Chief complaint: Abdominal Pain Stated complaint: nasuea/ bathroom a lot, dizzy Time Seen by Provider: 03/20/23 23:04 Source: patient Mode of arrival: ambulatory History of Present Illness HPI narrative: 32-year-old female with history of epigastric discomfort and is recently been seen here in the emergency room and also reports dark stools as well as headaches. Related Data Previous Rx's Medication Instructions Recorded ibuprofen 600 mg tablet 600 mg PO Q8H PRN pain #30 tabs 12/04/20 ondansetron 4 mg disintegrating 4 mg PO Q8H PRN nausea and 03/10/23 tablet vomiting #10 tabs omeprazole 20 mg capsule,delayed 20 mg PO DAILY #30 caps 03/20/23 release Allergies Allergy/AdvReac Type Severity Reaction Status Date / Time No Known Allergies Allergy Verified 03/10/23 11:42 [No Known Allergies*] Review of Systems Review of Systems: Pertinent positives and negatives as stated in HPI [facility] Past Medical History Source: nursing notes reviewed Medical History No known health problems Surgical History Hx of hand surgery Family History Family History Father No problems noted. Mother No problems noted. Maternal Grandfather CAD (coronary artery disease) Maternal Grandmother CAD (coronary artery disease) Social History Social History Alcohol intake: never Patient Tobacco Use Status: Never used Tobacco Advance Directives: No Advance Directives Information Provided: Yes Physical Exam ED Vital Signs: Vital Signs - 24 hr 03/20/23 21:08 Temperature 98.3 F Pulse Rate 69 Respiratory Rate 18 Blood Pressure 117/68 Pulse Oximetry 96 Oxygen Delivery Method Room Air BMI result Body Mass Index 24.3 VITAL SIGNS: Reviewed. GENERAL: Well developed, well nourished, in no acute distress. HEAD: Normocephalic/atraumatic EYES: PERRLA, EOMI EARS: Ext canals without abnormality NOSE: Nares patent bilateral OROPHARYNX: no oral lesions noted, posterior pharynx clear NECK: Supple, no adenopathy LUNGS: Normal breath sounds. No adventitious sounds or accessory muscle use. SpO2<96> CARDIOVASCULAR: Regular rate and rhythm without noted murmurs ABDOMEN: Soft, non-tender, non-distended with bowel sounds. PURVI: air intelligence specialist-Irem, no tags/fissures, scant amount of stool within the rectal vault that does not appear to be melena or gross blood on exam. MUSCULOSKELETAL: No tenderness, deformities, or effusions noted on gross inspection. EXTREMITIES: No cyanosis, clubbing or edema. SKIN: Inspection of the skin reveals no rashes NEUROLOGIC: Alert and oriented x 4. Strength and sensation to light touch were grossly intact x 4. Course Course Course Narrative: RME performed by Shanika Mercado PA-C. Patient is a 32 year old assigned female at presenting to the emergency department with abdominal pain and dark black stools. Labs ordered. Patient placed back in the waiting room pending room availability and results. Medications Administered Discontinued Medications Generic Name Dose Route Start Last Admin Trade Name Freq PRN Reason Stop Dose Admin Acetaminophen 975 mg 03/20/23 23:21 03/20/23 23:44 Acetaminophen 325 Mg Tablet PO 03/20/23 23:22 975 mg ONCE ONE Administration Al Hydroxide/Mg Hydroxide 30 ml 03/20/23 23:21 03/20/23 23:44 Magnesium Hydrox/Alum Hydrox 30 Ml Oral.Susp PO 03/20/23 23:22 30 ml ONCE ONE Administration Lidocaine HCl 10 ml 03/20/23 23:21 03/20/23 23:44 Lidocaine Hcl Viscous 2 % 15 Ml Solution MUCOUS MEM 03/20/23 23:22 10 ml ONCE ONE Administration Medical Decision Making Medical Decision Making [facility] Narrative: 32-year-old female with history and clinical presentation, DDX: Gastritis, gastric ulcer, H pylori, upper GI bleed. Reviewed all investigations and hematologic indices are grossly within normal limits. Coagulation studies are grossly within normal limits. Chemistry indices are grossly within normal limits. Beta hCG is undetectable. Fecal occult blood is negative. Viral testing is negative for influenza/RSV/COVID. My interpretation is that patient may very well have a component of gastritis and possible ulcer but there is no indication that there is any GI bleed occurring at this time either clinically or on objective laboratory investigation. Patient was also reassured that she can not get testing for H pylori by her primary care provider. She is otherwise discharged home. Differential Diagnosis Differential Diagnoses: The differential diagnosis associated with the presentation includes Please see the discussion above Admission/Observation Consideration of admission/observation: Escalation of care including admission/observation considered Please see the discussion above Lab Data MDM Lab Attestation statement: I reviewed the patient's lab results. Please see the discussion above 03/20/23 21:40 03/20/23 21:39 Labs: Lab Results 03/20/23 03/20/23 03/20/23 Range/Units 21:39 21:40 23:21 WBC 7.3 (4.8-10.8) X10*3/uL RBC 4.94 (4.20-5.50) X10*6/uL Hgb 14.8 (12.0-16.0) g/dl Hct 43.2 (37.0-47.0) % MCV 87.4 (80.0-98.0) fL MCH 30.0 (27.0-33.0) pg MCHC 34.3 (31.0-35.0) g/dl RDW 11.9 (11.0-16.0) % Plt Count 265 (160-400) X10*3/uL MPV 10.9 (9.4-12.3) fL Immature Gran % (Auto) 0.3 (0.0-0.4) % Neut % (Auto) 62.8 (45-73) % Lymph % (Auto) 29.2 (20-40) % Addison % (Auto) 5.7 (2-11) % Eos % (Auto) 1.5 (0-4) % Baso % (Auto) 0.5 (0-2) % Lymph # (Auto) 2.1 (1.2-4.9) X10*3/uL Addison # (Auto) 0.4 (0.1-1.2) X10*3/uL Eos # (Auto) 0.1 (0.0-0.4) X10*3/uL Baso # (Auto) 0.0 (0.0-0.2) X10*3/uL Abs Immat Gran (auto) 0.02 (0.00-0.03) X10*3/uL Absolute Neuts (auto) 4.6 (2.0-8.3) x10*3/uL Absolute Nucleated RBC 0.000 (0.0-0.012) X10*3/uL Nucleated RBC % (auto) 0.0 (0.0-0.2) /100WBC PT 13.7 H (11.1-13.3) SEC INR 1.1 (0.9-1.1) APTT 35.8 (26.0-36.4) SEC Sodium 139 (135-145) mmol/L Potassium 3.6 (3.3-5.1) mmol/L Chloride 108 (96-108) mmol/L Carbon Dioxide 24 (22-29) mmol/L Anion Gap 11 L (12-20) BUN 8 L (9-16) mg/dL Creatinine 0.80 (0.5-1.4) mg/dL Estim Creat Clear Calc 87.0 Estimated GFR > 60 Random Glucose 87 (60-115) mg/dL Calcium 9.5 (8.4-10.2) mg/dL Magnesium 2.1 (1.6-2.6) mg/dL Total Bilirubin 0.7 (0.0-1.0) mg/dL AST 14 (5-31) U/L ALT 8 (0-31) U/L Alkaline Phosphatase 44 (39-117) U/L Total Protein 8.4 H (6.5-8.0) g/dL Albumin 4.5 (3.5-5.0) g/dL Beta HCG, Quant < 2 mIU/mL Stool Occult Blood NEGATIVE (NEGATIVE) Influenza Type A (PCR) NEGATIVE (Negative) Influenza Type B (PCR) NEGATIVE (Negative) RSV RNA Qual (PCR) NEGATIVE (Negative) SARS-CoV-2 RNA (RT-PCR) NEGATIVE (Negative) Blood Type O Positive Antibody Screen NEGATIVE External Record Review External record reviewed: Outpatient record, Prior outpatient labs and Prior outpatient radiology Discharge Plan Discharge Clinical Impression: Gastritis Patient Disposition: Home, Self-Care Instructions: Gastritis (ED), Helicobacter Pylori (ED), Diet for Stomach Ulcers and Gastritis (ED) Additional Instructions: 1. Recommend getting tested for H pylori by your primary care provider. 2. Recommend avoiding ibuprofen/Motrin/aspirin/Excedrin/Naprosyn as these can irritate your stomach further. 3. You have been given a prescription for omeprazole that helps control acid. 4. Please follow-up with primary care provider. Return to the ER for any worsening symptoms. Prescriptions: New omeprazole 20 mg capsule,delayed release(DR/EC) 20 mg PO DAILY Qty: 30 0RF No Action ibuprofen 600 mg tablet 600 mg PO Q8H PRN (Reason: pain) Qty: 30 0RF ondansetron 4 mg tablet,disintegrating 4 mg PO Q8H PRN (Reason: nausea and vomiting) Qty: 10 0RF Referrals: [facility] [Primary Care Provider] -
[2023-03-20 21:46] LABS: MANUAL DIFF FLAG NO
[2023-03-20 21:48] LABS: Basophils Percent Auto 0.5 % (0-2); Eosinophils Absolute Auto 0.1 X10*3/uL (0.0-0.4); Eosinophils Percent Auto 1.5 % (0-4); Hematocrit 43.2 % (37.0-47.0); Hemoglobin 14.8 g/dl (12.0-16.0); Imm Gran Abs Auto 0.02 X10*3/uL (0.00-0.03); Imm Gran Pct Auto 0.3 % (0.0-0.4); Lymphocytes Absolute Auto 2.1 X10*3/uL (1.2-4.9); Lymphocytes Percent Auto 29.2 % (20-40); Mean Corpuscular HGB Conc 34.3 g/dl (31.0-35.0); Mean Corpuscular Volume 87.4 fL (80.0-98.0); Mean Platelet Volume 10.9 fL (9.4-12.3); Monocytes Absolute Auto 0.4 X10*3/uL (0.1-1.2); Monocytes Percent Auto 5.7 % (2-11); Neutrophils Absolute Auto 4.6 x10*3/uL (2.0-8.3); Neutrophils Percent Auto 62.8 % (45-73); Platelet Count 265 X10*3/uL (160-400); Red Blood Count 4.94 X10*6/uL (4.20-5.50); Red Cell Distribution Width 11.9 % (11.0-16.0); White Blood Count 7.3 X10*3/uL (4.8-10.8)
[2023-03-20 21:55] LABS: INTERNATIONAL NORM RATIO 1.1 (0.9-1.1); Prothrombin Time 13.7 SEC (11.1-13.3)
[2023-03-20 21:58] LABS: Partial Thromboplastin Time 35.8 SEC (26.0-36.4)
[2023-03-20 22:03] LABS: Alanine Aminotransferase 8 U/L (0-31); Albumin Level 4.5 g/dL (3.5-5.0); Alkaline Phosphatase 44 U/L (39-117); Anion Gap 11 (12-20); Aspartate Amino Transferase 14 U/L (5-31); Bilirubin Total 0.7 mg/dL (0.0-1.0); Blood Urea Nitrogen 8 mg/dL (9-16); Calcium 9.5 mg/dL (8.4-10.2); Carbon Dioxide 24 mmol/L (22-29); Chloride 108 mmol/L (96-108); Estimated Glomerular Filt Rate > 60; Glucose Random 87 mg/dL (60-115); Magnesium 2.1 mg/dL (1.6-2.6); Potassium 3.6 mmol/L (3.3-5.1); Sodium 139 mmol/L (135-145); Total Protein 8.4 g/dL (6.5-8.0)
[2023-03-20 22:11] LABS: HCG Quantitative < 2 mIU/mL
[2023-03-20 22:25] LABS: Influenza A PCR NEGATIVE (Negative); Influenza B PCR NEGATIVE (Negative); Resp Syncy Virus RNA Qual PCR NEGATIVE (Negative); SARS COV2 PCR INHOUSE NEGATIVE (Negative)
[2023-03-20 23:28] LABS: OBS Int Ctl Valid YES; OBS1 NEGATIVE (NEGATIVE)
[2023-03-20] MEDS: Lidocaine HCl Viscous 2 % 15 ML SOLUTION 10 ML MUCOUS MEM (23:44)
[2023-03-20] MEDS: Magnesium Hydrox/Alum Hydrox 30 ML ORAL.SUSP PO (23:44)
[2023-03-20] MEDS: Acetaminophen 325 MG TABLET 975 MG PO (23:44)
[2023-03-21] VITALS: BP 120/69; PULSE 75; RESP 16; TEMP 36.8; O2SAT 97
--- NOTE | 2023-03-21 00:04 | MHC.EDTECH ---
THIS PCT ASSUMED CARE OF PT AT 23OO ,VITALS TAKEN ,PT WAITING FOR DISCHARGE PAPERWORK .
== END 2023-03-21 00:17 | disposition home or self-care (01) ==
PROVIDERS: Physician Assistant Medical; Emergency Provider Student in an Organized Health Care Education/Training Program
DX: K29.70 Gastritis, unspecified, without bleeding (principal); R11.2 Nausea with vomiting, unspecified; R42 Dizziness and giddiness; Z20.822 Contact with and (suspected) exposure to COVID-19; Z20.828 Contact with and (suspected) exposure to other viral communicable diseases; Z79.899 Other long term (current) drug therapy
CPT/HCPCS: 0241U; 36415; 80053; 82272; 83735; 84702; 85025; 85610; 85730; 86850; 86900; 86901; 99283

== ENCOUNTER 2023-03-29 16:49 | Outpatient (REF) | payer MEDICAID, SELFPAY ==
[2023-03-29 17:30] LABS: MANUAL DIFF FLAG NO
[2023-03-29 18:12] LABS: Basophils Percent Auto 0.6 % (0-2); Eosinophils Absolute Auto 0.1 X10*3/uL (0.0-0.4); Eosinophils Percent Auto 1.4 % (0-4); Hematocrit 38.5 % (37.0-47.0); Hemoglobin 13.1 g/dl (12.0-16.0); Imm Gran Abs Auto 0.01 X10*3/uL (0.00-0.03); Imm Gran Pct Auto 0.2 % (0.0-0.4); Lymphocytes Absolute Auto 1.5 X10*3/uL (1.2-4.9); Lymphocytes Percent Auto 29.5 % (20-40); Mean Corpuscular Hemoglobin 29.6 pg (27.0-33.0); Mean Corpuscular Volume 87.1 fL (80.0-98.0); Mean Platelet Volume 10.7 fL (9.4-12.3); Monocytes Absolute Auto 0.4 X10*3/uL (0.1-1.2); Monocytes Percent Auto 7.8 % (2-11); Neutrophils Absolute Auto 3.1 x10*3/uL (2.0-8.3); Neutrophils Percent Auto 60.5 % (45-73); Platelet Count 252 X10*3/uL (160-400); Red Blood Count 4.42 X10*6/uL (4.20-5.50); Red Cell Distribution Width 11.6 % (11.0-16.0); White Blood Count 5.2 X10*3/uL (4.8-10.8)
== END 2023-03-29 16:50 | disposition home or self-care (01) ==
LOC: HO.HHCL 16:49
PROVIDERS: Visit Provider Nurse Practitioner
DX: R10.13 Epigastric pain (principal)
CPT/HCPCS: 36415; 85025

== ENCOUNTER 2023-04-12 | Outpatient (REF) | payer MEDICAID, SELFPAY | END 2023-04-12 00:01 | disposition home or self-care (01) | LOC: HO.LNP | PROVIDERS: Visit Provider Nurse Practitioner | DX: R10.13 Epigastric pain (principal) | CPT/HCPCS: 87338 ==

== ENCOUNTER 2023-07-19 14:33 | Emergency (ER) | payer MEDICAID, SELFPAY ==
[2023-07-19 15:24] VITALS: BP 113/52; PULSE 78; RESP 20; TEMP 37.4; O2SAT 99; BMI 24.1
--- NOTE | 2023-07-19 15:24 | ED.GENADULT ---
HPI - General Adult General Chief complaint: Upper Respiratory Symptoms Stated complaint: Sore throat, ear pain Time Seen by Provider: 07/19/23 16:04 Source: patient Mode of arrival: ambulatory Limitations: no limitations History of Present Illness [facility] narrative: Patient is a 32-year-old female presenting to the emergency department with complaint of sore throat, generalized body aches, chills since Monday. Denies cough or shortness of breath. Reports tonsils are swollen with white spots. Increased pain with eating/drinking/swallowing. complaint: Sore throat Onset (ago): day(s) Severity: severe Quality: burning Pain Consistency: constant Relieving factors: none Exacerbating factors: eating Associated symptoms: fever/chills Treatments prior to arrival: none Related Data Previous Rx's Medication Instructions Recorded ibuprofen 600 mg tablet 600 mg PO Q8H PRN pain #30 tabs 12/04/20 ondansetron 4 mg disintegrating 4 mg PO Q8H PRN nausea and 03/10/23 tablet vomiting #10 tabs omeprazole 20 mg capsule,delayed 20 mg PO DAILY #30 caps 03/20/23 release amoxicillin 875 mg-potassium 1 tab PO BID #14 tabs 07/19/23 clavulanate 125 mg tablet Allergies Allergy/AdvReac Type Severity Reaction Status Date / Time No Known Allergies Allergy Verified 03/10/23 11:42 [No Known Allergies*] Review of Systems Review of Systems: Yes all other systems are reviewed and are negative Constitutional: Constitutional: Reports as per [facility] Past Medical History Medical History No known health problems Surgical History Hx of hand surgery Family History Family History Father No problems noted. Mother No problems noted. Maternal Grandfather CAD (coronary artery disease) Maternal Grandmother CAD (coronary artery disease) Social History Social History Alcohol intake: never Patient Tobacco Use Status: Never used Tobacco Advance Directives: No Advance Directives Information Provided: No Physical Exam ED Vital Signs: Vital Signs - 24 hr 07/19/23 15:24 Temperature 99.3 F Pulse Rate 78 Respiratory Rate 20 Blood Pressure 113/52 L Pulse Oximetry 99 Oxygen Delivery Method Room Air BMI result Body Mass Index 24.1 Vital signs have been reviewed and appear to be correct. Blood pressure normal. Heart rate normal. Respiratory rate normal. Temperature normal. Oxygen saturation normal. Const General: cooperative, healthy appearing and no acute distress Orientation/consciousness: oriented to person, oriented to place, oriented to time and patient oriented x3 Limitations: no limitations HENMT Head: Yes normocephalic and Yes atraumatic Ears: external ears normal, TM normal on the right, EAC's normal and TM abnormal bulging on the left and erythematous on the left General nose exam: Normal external nose present Face and sinus: Yes face symmetric Mouth: oropharynx normal, moist mucous membranes and no trismus Throat: Yes uvula midline, Yes abnormal tonsil (3+, symmetrical, +exudate) and No peritonsillar mass Eyes Pupils: Equal, round and reactive pupils present Neck Neck: Yes normal visual inspection, Yes full ROM, Yes no lymphadenopathy and Yes supple Resp Effort & Inspection: normal respiratory effort and able to speak in complete sentences Auscultation: clear to auscultation bilaterally Cardio Rate: regular rate Rhythm: regular rhythm Heart sounds: S1 normal heart sound present and S2 normal heart sound present GI Palpation (GI): Soft to palpation and nontender Auscultation: normoactive bowel sounds General: Yes no CVA tenderness Back/Spine/Pelvis Back: no CVA tenderness Skin General skin exam: elasticity normal and turgor normal Neuro General: oriented to person, oriented to place, oriented to time, patient oriented x3, moves all extremities, no focal motor deficits and CN's II-XI intact bilaterally Cranial nerves: Yes Equal, round and reactive pupils present Cognition (Neuro): normal cognition Extrem General: Yes full ROM, Yes no pedal edema and Yes no calf tenderness Psych Mental Status: mental status grossly normal Affect: normal affect Thought process: Normal thought process present Course Course Course Narrative: This is an RME: Additional HPI, ROS, PE not included below will be deferred to primary provider. This is a [id number]-female presenting to the emergency department with a complaint of sore throat x 5 days. Also endorsing subjective fevers and chills. BL tonsils are erythematous and edematous, uvula midline. Plan: Strep test, COVID/RSV/Flu testing Medical Decision Making Medical Decision Making [facility] Narrative: Patient is a 32-year-old female presenting to the emergency department with complaint of sore throat, generalized body aches, chills since Monday. On exam patient is awake, A+Ox3, VS WNL, afebrile, normal neurological exam without focal deficits, physical exam findings as above. Given reported symptoms and physical exam findings, initial differential includes otitis media, otitis externa, strep pharyngitis, viral illness, COVID, flu, RSV. Swabs for strep, viral illnesses all negative. Patient's boyfriend who is here with similar symptoms tested positive for influenza a, feel patient likely had influenza as well and is testing positive due to length of symptoms. Physical exam findings consistent with left otitis media, will treat with Augmentin. Advised patient to gargle with warm salt water, use Tylenol and ibuprofen. Instructed patient to follow-up with primary care provider. Return precautions discussed at bedside. Patient verbalized understanding of and agreement with plan. Differential Diagnosis Differential Diagnoses: The differential diagnosis associated with the presentation includes As per MDM. Lab Data [facility] Lab Attestation statement: I reviewed the patient's lab results. As per [facility]. Labs: Lab Results 07/19/23 Range/Units 16:15 Influenza Type A (PCR) NEGATIVE (Negative) Influenza Type B (PCR) NEGATIVE (Negative) RSV RNA Qual (PCR) NEGATIVE (Negative) SARS-CoV-2 RNA (RT-PCR) NEGATIVE (Negative) S. pyogenes GrpA JEREMY Negative (Negative) External Record Review External record reviewed: Inpatient record, Office record and Outpatient record Prescription Management I considered prescription management with: Antibiotic Discharge Plan Discharge Clinical Impression: Viral infection Otitis media Qualifiers: Chronicity: acute Laterality: left Recurrence: non-recurrent Spontaneous tympanic membrane rupture: without spontaneous rupture Patient Disposition: Home, Self-Care Instructions: Ear Infection (ED) Additional Instructions: You were evaluated in the emergency department today for ear pain and sore throat. Your evaluation suggests that your pain is due to an ear infection and viral infection. Please take your prescribed antibiotics as directed for the full course of the medication. We recommend that you take 650 mg of Tylenol or 600 mg ibuprofen every 6 hours as needed for fever or discomfort. If necessary, you can alternate these medications every 3 hours. For example, at 9:00 a.m. take ibuprofen, then at noon take Tylenol, then at 3:00 p.m. take ibuprofen, etc.. Please follow up with your primary care provider within two days. Return to the emergency department if you experience hearing loss, discharge from your ear, headaches, fevers, recurrent vomiting, or any other concerning symptoms. Prescriptions: New amoxicillin-pot clavulanate 875-125 mg tablet 1 tab PO BID Qty: 14 0RF No Action ibuprofen 600 mg tablet 600 mg PO Q8H PRN (Reason: pain) Qty: 30 0RF omeprazole 20 mg capsule,delayed release(DR/EC) 20 mg PO DAILY Qty: 30 0RF ondansetron 4 mg tablet,disintegrating 4 mg PO Q8H PRN (Reason: nausea and vomiting) Qty: 10 0RF
[2023-07-19 16:35] LABS: IDNOW Serial# 08D9AD1C; Strep A Nucleic Acid Negative (Negative)
[2023-07-19 17:08] LABS: Influenza A PCR NEGATIVE (Negative); Influenza B PCR NEGATIVE (Negative); Resp Syncy Virus RNA Qual PCR NEGATIVE (Negative); SARS COV2 PCR INHOUSE NEGATIVE (Negative)
[2023-07-19 17:50] VITALS: BP 103/60; PULSE 82; RESP 16; TEMP 36.9; O2SAT 98
== END 2023-07-19 17:51 | disposition home or self-care (01) ==
PROVIDERS: Physician Assistant Medical; Emergency Provider Emergency Medicine
DX: H66.92 Otitis media, unspecified, left ear (principal); B34.9 Viral infection, unspecified
CPT/HCPCS: 0241U; 87651; 99282; 99283

== ENCOUNTER 2024-11-22 10:02 | Outpatient (REF) | payer MEDICAID, SELFPAY ==
--- OUTSIDE RECORDS SUMMARY | 2024-11-22 10:14 | XMS_ITS | Encounter Summary ---
Author Organization [employer] Address [address] [facility] [address] [place] [address] Care Team Providers Care Geography Professor Name Role Phone Johanna Messer LEAD WORKER OF HOUSEKEEPING [employer]UNDRY Primary Care Provider [phone] Lenora Sands MANUFACTURER Primary Care Provider [phone] Jossy Villagomez DISTRICT SUPERINTENDENT Primary Care Provider [phone] Encounter Details Date Type Department Care Team (Late Contact Info) Description 04/27/2023 Abstract [facility] MEDICINE [address] [place] [address] Johanna Messer FNP [address] [place] [address] Social History Tobacco Use Types Packs/Day Years Used Date Smoking Tobacco: Never Smokeless Tobacco: Never Alcohol Use Standard Drinks/Week Comments Never 0 (1 standard drink = 0.6 oz pur e alcohol) Comments Unknown Sex and Gender Information Value Date Recorded Sex Assigned at Female 02/14/2022 10:20 AM EDT Legal Sex Female 10:20 AM EDT Gender Identity Female 02/14/2022 10:20 AM EDT Sexual Orientation Straight 02/14/2022 10 :20 AM EDT documented as of this encounter Plan of Treatment Upcoming Encounters Date Type Department Care Team (Late st Contact Info) Description 11/27/2024 10:30 AM EDT Office Visit [facility] OPTOMETRY [address] [place] [address] Jacqui Ramos OD [address] [place] [address] 12/13/2024 2:00 PM EDT Office Visit [facility] MED & PEDS [address] [place], [place] [phone] Jossy Villagomez CNP [address] [place] [address] 12/23/2024 10:00 AM EDT Office Visit [facility] ADULT DENTAL [address] [place], [place] [phone] Luzmaria Lester DDS [address] [place] [address] documented as of this encounter Visit Diagnoses Not on filedocumented in this encounter Care Teams Geography Professor Relationship Specialty Start Date End Date Johanna Messer FNP [address] [place] [id number] PCP - General Family Medicine 12/26/22 10/11/23 Lenora Sands NP [address] [place] [id number] PCP - General Family Medicine 10/12/23 11/21/24 Jossy Villagomez CNP [address] [place] [id number] PCP - General Family Medicine 11/22/24 documented as of this encounter
[2024-11-22 11:24] LABS: Appearance Urine Turbid; Glucose Urine UA Negative (Negative); PH 5.5 (5.0-9.0); Specific Gravity - Urine 1.025 (1.005-1.025)
[2024-11-22 11:43] LABS: MANUAL DIFF FLAG NO
[2024-11-22 11:50] LABS: Hematocrit 42.4 % (37.0-47.0); Hemoglobin 14.4 g/dl (12.0-16.0); Imm Gran Abs Auto 0.02 X10*3/uL (0.00-0.03); Imm Gran Pct Auto 0.4 % (0.0-0.4); Lymphocytes Absolute Auto 1.6 X10*3/uL (1.2-4.9); Mean Corpuscular HGB Conc 34.0 g/dl (31.0-35.0); Mean Corpuscular Hemoglobin 30.1 pg (27.0-33.0); Mean Corpuscular Volume 88.5 fL (80.0-98.0); NRBC Abs Auto 0.000 X10*3/uL (0.0-0.012); NRBC Pct Auto 0.0 /100WBC (0.0-0.2); Platelet Count 245 X10*3/uL (160-400); Red Blood Count 4.79 X10*6/uL (4.20-5.50); White Blood Count 5.1 X10*3/uL (4.8-10.8)
[2024-11-22 12:16] LABS: Alanine Aminotransferase 13 U/L (0-31); Albumin Level 5.1 g/dL (3.5-5.0); Alkaline Phosphatase 43 U/L (39-117); Amylase 98 U/L (28-100); Anion Gap 9 (12-20); Aspartate Amino Transferase 21 U/L (5-31); Blood Urea Nitrogen 8 mg/dL (9-16); Calcium 9.2 mg/dL (8.4-10.2); Carbon Dioxide 27 mmol/L (22-29); Chloride 107 mmol/L (96-108); Estimated Glomerular Filt Rate > 60; Lipase 26 U/L (8-78); Potassium 3.9 mmol/L (3.3-5.1); Sodium 139 mmol/L (135-145); Total Protein 8.6 g/dL (6.5-8.0)
[2024-11-22 12:31] LABS: HIV Num 1 0.05 S/CO (0.00-0.99); ~HepC Num1 0.14 S/CO (0.00-0.79); ~Hepatitis C Antibody Nonreactive (Nonreactive)
== END 2024-11-22 10:03 | disposition home or self-care (01) ==
LOC: HO.HHCL 10:02
DX: Z11.59 Encounter for screening for other viral diseases (principal); Z11.4 Encounter for screening for human immunodeficiency virus [HIV]; Z01.84 Encounter for antibody response examination; R10.13 Epigastric pain; N96 Recurrent pregnancy loss
CPT/HCPCS: 36415; 80053; 81003; 82150; 83690; 84443; 84702; 85025; 85597; 85598; 85613; 85730; 86147; 86803; 87389

== ENCOUNTER 2024-12-13 14:48 | Outpatient (REF) | payer MEDICAID, SELFPAY ==
--- OUTSIDE RECORDS SUMMARY | 2024-12-13 14:00 | XMS_ITS | Encounter Summary ---
Author Organization [employer] Address [address] [facility] [address] [place] [address] Care Team Providers Care Seed Cutter Name Role Phone Jossy Villagomez CNP Primary Care Provider [phone] Reason for Visit * Reason Comments Annual Exam PE Encounter Details Date Type Department Care Team ([facility] st Contact Info) Description 12/13/2024 2:00 PM EDT Office Visit [facility] MED & PEDS [address] [place] [address] Jossy Villagomez CNP [address] [place] [address] Chronic pain syndrome (Primary Dx); Epigastric pain; Chronic right-sided low back pain with right-sided sciatica; Hyperpigmentation; Ingrown hair Social History Tobacco Use Types Packs/Day Years Used Date Smoking Tobacco: Some Days Cigarettes Smokeless Tobacco: Never Alcohol Use Standard Drinks/Week Comments Never 0 (1 standard drink = 0.6 oz pur e alcohol) Depression Answer Date Recorded Patient Health Questionnaire-9 Score 18 11/22/2024 Patient Health Questionnaire-9 Score 18 11/22/2024 Last PHQ-9: Questionnaire Data Not on file 0 11/22/2024 Housing Stability Answer Date Recorded What is your housing situation today? I have stephan romeo 04/18/[address] you li ve. Do you have problems with any of the following? None of the above 04/18/2024 Food Insecurity Answer Date Recorded Within the past 12 months, y ou worried that your food would run out before you got money to buy more: Sometimes True 2024 Within the past 12 months,th e food you bought just didn't last and you didn't have enough money to get more: Sometimes True 04/18/2024 Transportation Answer Date Recorded In the past 12 months, has l ack of transportation kept you from medical appts, meetings, work or from getting things needed for daily living? Yes, it has kept me from medical appointments or getting medications. 04/18/2024 Utilities Answer Date Recorded In the past 12 months, has t he electric, gas, oil or water company threatened to shut off services in your home? No 04/18/2024 Depression Answer Date Recorded Patient Health Questionnaire-2 Score 4 11/22/2024 Internet Access Answer Date Recorded Internet Access Q1 Yes 04/18/2024 Internet Access Q2 Not on file 04/18/2024 Comments Unknown Sex and Gender Information Value Date Recorded Sex Assigned at Female 02/14/2022 10:20 AM EDT Legal Sex Female 10:20 AM EDT Gender Identity Female 02/14/2022 10:20 AM EDT Sexual Orientation Straight 02/14/2022 10 :20 AM EDT documented as of this encounter Last Filed Vital Signs Vital Sign Reading Time Taken Comments Blood Pressure 100/56 12/13/2024 2:03 PM EDT Pulse 72 12/13/2024 2:03 PM EDT Temperature 36.6 C (97.9 F) 12/13/2024 2:03 PM EDT Respiratory Rate 12 12/13/2024 2:03 PM EDT Oxygen Saturation 98% 12/13/2024 2:03 PM EDT Inhaled Oxygen Concentration - - Weight 57.2 kg (126 lb) 12/13/2024 2:03 PM EDT Height 157.5 cm (5' 2 ) 12/13/2024 2:03 PM EDT Body Mass Index 23.05 12/13/2024 2:03 PM EDT documented in this encounter Plan of Treatment Upcoming Encounters Date Type Department Care Team (Late st Contact Info) Description 12/23/2024 10:00 AM EDT Office Visit [facility] ADULT DENTAL [address] [place], [place] [phone] Luzmaria Lester DDS [address] [place] [address] 04/02/2025 2:00 PM EST Office Visit [facility] OPTOMETRY [address] [place], [place] [phone] Jacqui Ramos, OD [address] [place] [address] Scheduled Orders Name Type Priority Associated Diagnoses Orde r Schedule Rheumatoid Factor Lab Routine Chronic pain syndrome Expected: 12/13/2024, Expires: 12/13/2025 ABDI Screen,IFA, with Reflex to Titer and Pattern Lab Routine Chronic pain syndrome Expected: 12/13/2024 (Approximate), Expires: 12/13/2025 XR Lumbar Spine 2-3 Views Imaging Routine Chronic right-sided low back pain with right-sided sciatica Expected: 12/13/2024, Expires: 12/13/2025 Vitamin D, 25-Hydroxy, Total, Immunoassay Lab Routine Chronic pain syndrome Expected: 12/13/2024 (Approximate), Expires: 12/13/2025 documented as of this encounter Visit Diagnoses Diagnosis Chronic pain syndrome- Primary Epigastric pain Abdominal pain, epigastric Chronic right-sided low back pain with right-sided sciatica Hyperpigmentation Other dyschromia Ingrown hair Other specified disease of hair and hair follicles documented in this encounter Additional Health Concerns Assessment Noted Time PHQ-9 Depression Total Score: 18 025 9:49 AM EDT documented as of this encounter Care Teams Seed Cutter Relationship Specialty Start Date End Date Jossy Villagomez CNP [address] [place], [place] [phone] PCP - General Family Medicine 11/22/24 documented as of this encounter
--- OUTSIDE RECORDS SUMMARY | 2024-12-13 14:51 | XMS_ITS | Encounter Summary ---
Author Organization [employer] Address [address] [place] [address] Care Team Providers Care Cable Dispatcher Name Role Phone Johanna Messer Primary Care Provider [phone] Lenora Sands FOOD SERVICE ATTENDANT Primary Care Provider [phone] Jossy Villagomez [employer] PRODUCTS VIEWER Primary Care Provider [phone] Reason for Visit * Reason Onset Date Comments Results 04/24/2023 Encounter Details Date Type Department Care Team (Late st Contact Info) Description 04/24/2023 Telephone [facility] [place] MEDICINE [address] [place], [place] [phone] Johanna Messer FNP [address] [place], [place] [phone] Results Social History Tobacco Use Types Packs/Day Years [...] AM EDT documented as of this encounter Miscellaneous Notes * Telephone Encounter - Yuri French MA - 04/27/2023 1:39 PM EST Your welcome * Telephone Encounter - Yuri French MA - 04/27/2023 1:26 PM EST I called pt to let her know I don;t have any slots open until june , told her I will need to put her on recall * Telephone Encounter - Silvia Sims RN - 04/27/2023 11:45 AM EST T/C to pt. To inform that provider prescribe Zofran, pt. Verbally agreed and understood. message sent to RICARDO to schedule TP. * Telephone Encounter - Gemini Villaseñor RN - 04/25/2023 4:07 PM EST T/C placed to pt via [employer] #[id number]. Advised pt H. Pylori stool not detected 04/12/23. Advised BMP shows lab needs to be collected. Pt agrees to complete lab order. Pt requesting referral for further testing as she is still experiencing nausea and is having difficulty eating despite trying to eat healthy foods. Pt requesting rx for [place] [facility] [place] States this was effective for nausea and famotidine did not improve her symptoms. Advised will forward requests to pcp for review. * Telephone Encounter - Fred Guerrero - 04/24/2023 2:51 PM EST TC from pt requesting call back regarding Results. Type of results: Lab works Date when done: 04/12/2023 Facility: [facility] documented in this encounter Plan of Treatment Upcoming Encounters Date Type Department Care Team (Late st Contact Info) Description 12/23/2024 10:00 AM EDT Office Visit [facility] CHC ADULT DENTAL [address] [place], [place] [phone] Luzmaria Lester DDS [address] [place], [place] [phone] 04/02/2025 2:00 PM EST Office Visit [facility] OPTOMETRY [address], [place] [phone] Jacqui Ramos, OD [address] [place] [address] documented as of this encounter Visit Diagnoses Not on filedocumented in this encounter Care Teams Cable Dispatcher Relationship Specialty Start Date End Date Johanna Messer FNP [address] [place], [place] [phone] PCP - General Family Medicine 12/26/22 10/11/23 Lenora Sands NP [address] [place] [id number] PCP - General Family Medicine 10/12/23 11/21/24 Jossy Villagomez CNP [address] [place], [place] [phone] PCP - General Family Medicine 11/22/24 documented as of this encounter
--- OUTSIDE RECORDS SUMMARY | 2024-12-13 14:51 | XMS_ITS | Clinical Summary ---
Author Organization [employer] Address [address] [facility] [address] [place] [address] Care Team Providers Care Stamping Machine Operator Name Role Phone Jossy Villagomez JL Primary Care Provider [phone] Allergies Active Allergy Reactions Criticality Noted Date Comments Pollen Extract 09/01/2022 Pollen, etc. Medications cetirizine (ZyrTEC) 10 MG tablet Take 1 tablet (10 mg) by mouth in the morning. 90 tablet 1 12/14/19 25 2024 Active famotidine (Pepcid) 20 MG tabletIndications :Epigastric pain Take 1 tablet (20 mg) by mouth 2 times daily. 60 tablet 12/14/19 25 2024 Active omeprazole (PriLOSEC) [address] capsuleIndication s:Epigastric pain Take 1 capsule (20 mg) by mouth Once per day. 30 capsule 12/14/19 25 Active mupirocin (Bactroban) 2 % ointmentIndicatio ns:Hyperpigmentat ion,Ingrown hair Apply topically if needed each day (for ingrown hairs) for up to 7 days. 22 g 12/14/19 25 2024 Active triamcinolone (Kenalog) 0.1 % ointmentIndicatio ns:Hyperpigmentat ion Apply topically if needed in the morning and at bedtime for rash. 80 g 12/14/19 25 Active Cetirizine HCl 10 MG capsuleIndication s:Allergic rhinitis, unspecified seasonality, unspecified trigger Take 1 tablet by mouth once daily 90 capsule 05/11/19 23 2024 Discontinued letrozole (Femara) 2.5 MG chemo tablet TAKE 2 TABLETS BY MOUTH DAILY FOR 5 DAYS. START ON DAY 3 OF CYCLE, CONTINUE FOR 5 DAYS. 05/06/19 23 2024 Discontinued Multiple Vitamin (Multivitamin) tablet TAKE 1 TABLET BY MOUTH EVERY DAY WITH FOOD 05/06/192024 Discontinued cholecalciferol (Vitamin D-3) 25 MCG (1000 UT) capsuleIndication s:Vitamin D deficiency take 1 capsule by oral route every day 90 capsule 09/01/192024 Discontinued ramelteon (Rozerem) 8 MG tabletIndications :Primary insomnia Take 1 tablet (8 mg) by mouth at bedtime. 30 tablet 2 10/07/192024 Discontinued famotidine (Pepcid) 20 MG tabletIndications :Epigastric pain Take 1 tablet (20 mg) by mouth 2 times daily. 60 tablet 03/29/202024 Discontinued(R eorder (will not trigger notification to Pharmacy)) ondansetron ODT (Zofran-ODT) 4 MG disintegrating tablet Take 4 mg by mouth. 05/09/192024 Discontinued omeprazole (PriLOSEC) [address] capsule Take 20 mg by mouth in the morning. 03/21/202024 Discontinued(R eorder (will not trigger notification to Pharmacy)) fluticasone (Flonase) 50 MCG/ACT nasal spray INSTILL 2 SPRAYS IN EACH NOSTRIL ONCE DAILY 48 g 08/29/192024 Discontinued cetirizine (ZyrTEC) 10 MG tablet TAKE 1 TABLET BY MOUTH EVERY MORNING 90 tablet 1 11/16/192024 Discontinued Skin Protectants, Misc. (eucerin) cream Apply topically if needed for dry skin. 396 g 3 03/19/20 24 2024 Discontinued diphenhydrAMINE (BENADryl) 25 MG tablet Take 1 tablet (25 mg) by mouth every 6 (six) hours if needed for itching. 30 tablet 1 03/19/20 24 2024 Discontinued triamcinolone (Kenalog) 0.1 % ointment Apply topically if needed in the morning and at bedtime for rash. 80 g 07/20/19 25 2024 Discontinued(R eorder (will not trigger notification to Pharmacy)) famotidine (Pepcid) 20 MG tabletIndications :Epigastric pain Take 1 tablet (20 mg) by mouth 2 times daily. 60 tablet 11/23/19 25 2024 Discontinued(R eorder (will not trigger notification to Pharmacy)) omeprazole (PriLOSEC) [address] capsuleIndication s:Epigastric pain Take 1 capsule (20 mg) by mouth Once per day. 30 capsule 11/23/192024 Discontinued(R eorder (will not trigger notification to Pharmacy)) Active Problems Problem Noted Date Diagnosed Date Pain, dental 06/15/2023 Epigastric pain 03/30/2023 Assessment & Plan (03/30/2023 9:10 PM EST): -gastritis vs. H.pylori infection -omeprazole caps discontinued -trial famotidine 20 mg every day. May increase to two times daily if no relief after 3 days -maintain adequate fluid intake as tolerates. Drink Gatorade or poweraid instead of water if unable to tolerate foods. -maintain bland diet as tolerable -drink suzanne tea/ suzanne candy to assist with nausea -ondansetron rx sent to pharmacy -order placed for H. Pylori stool testing in 2 weeks (04/11) -RTC or go to ED if symptoms worsen, vomiting, unable to tolerate liquids, dark or bloody stools -CBC and BMP ordered -will f/u after test results received. May consider GI referral if no relief Primary insomnia 2022 Overview (2022): Treated with Zolpidem in the past Only takes as needed. Last filled 08/2021 Assessment & Plan (2022 4:14 PM EDT): Will try a different sleep medication rather than Zolpidem Rx Shanice Educated that it improves her sleep cycle and her bodies production of melatonin. 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 Allergic rhinitis 02/15/2012 Vitamin D deficiency 02/15/2012 Depressive disorder 02/15/2012 Encounters Date Type Department Care Team Description 12/13/2024 2:00 PM EDT Office Visit [facility] [address] [place] [address] Jossy Villagomez CNP Chronic pain syndrome (Primary Dx); Epigastric pain; Chronic right-sided low back pain with right-sided sciatica; Hyperpigmentation; Ingrown hair 12/13/2024 Travel 12/13/2024 Telephone [facility] [address] [place] [address] Jossy Villagomez CNP chart prep 12/10/[address] [address] Jossy Villagomez CNP Call Back Request 12/10/[address] [address] Jossy Villagomez CNP Nurse Triage 12/02/2024 Results Follow-Up [facility] [address] [place] [phone] Jossy Villagomez CNP CBC auto differential, HIV-1/2 Antigen and Antibodies, Fourth Generation, with Reflexes, Hepatitis C Antibody with Reflex to HCV, RNA, Quantitative, Real-Time PCR, Additional followed-up results: 7 11/22/2024 9:15 AM EDT Office Visit [facility] [address] [place] [phone] Jossy Villagomez CNP Epigastric pain (Primary Dx); Recurrent loss 11/22/2024 Orders Only [address] [address] Jossy Villagomez CNP Ketonuria (Primary Dx) 11/22/2024 Orders Only [address] [address] Jossy Villagomez CNP 11/22/2024 Travel 11/21/2024 Telephone [facility] [address] [place] [address] Jossy Villagomez, SOLAR INSTALLATION TECHNICIAN Chart Prep 11/21/2024 Telephone [facility] [address] [place] [address] Lenora Sands, MECHANIC WELDER TRUCK DRIVER Nurse Triage 10/01/2024 Telephone [facility] [address] [place] [address] Lenora Sands, MECHANIC WELDER TRUCK DRIVER Nurse Triage from Last 3 Months Immunizations Immunization Administration Dates Next Due HPV, Quadrivalent 09/21/2009,07/24/2008 Influenza injectable quadriv alent IIV4 with preservative 03/23/2016 Influenza, Split (incl. purified surface antigen ) 03/30/2012 Meningococcal MPSV4 07/24/2008 TD (adult), 2 Lf tetanus tox oid, preservative free, adsorbed 03/06/2017 Tdap 07/24/2008 Varicella 07/24/2008 Family History Medical History Relation Name Comments Uterine cancer Mother Breast cancer Sister Relation Name Status Comments Mother Sister Social History Tobacco Use Types Packs/Day Years Used Date Smoking Tobacco: Some Days Cigarettes Smokeless Tobacco: Never Tobacco Cessation:Ready to Q uit: Not Asked; Counseling Given: Not Answered Alcohol Use Standard Drinks/Week Comments Never 0 [...] Q2 Not on file 04/18/2024 Comments Unknown Intention Date Recorded Wants to become (finding) 11/22 Sex and Gender Information Value Date Recorded Sex Assigned at Female 02/14/2022 10:20 AM EDT Legal Sex Female 10:20 AM EDT Gender Identity Female 02/14/2022 10:20 AM EDT Sexual Orientation Straight 02/14/2022 10 :20 AM EDT Last Filed Vital Signs Vital Sign Reading [...] Mass Index 23.05 12/13/2024 2:03 PM EDT Plan of Treatment Upcoming Encounters Date Type Department Care Team (Late st Contact Info) Description 12/23/2024 10:00 AM EDT Office Visit [facility] [address] [place] [address] Luzmaria Lester, DDS [address] [place], [place] [phone] 04/02/2025 2:00 PM EST Office Visit [facility] [address] [place] [address] Jacqui Ramos, OD [address] [place], [place] [phone] Health Maintenance Due Date Last Done Comments Lipid Panel 1991 HPV Vaccines (3 - 3-dose series) 12/14/2009 09/21/2009, 07/24/2008 Hepatitis B Vaccines (1 of 3 - 19+ 3-dose series) 09/15/2010 Pneumococcal Vaccine: Pediatrics (0 to 5 Years) and At-Risk Patients (6 to 49) Years (1 of 2 - PCV) 09/15/2010 Pap Smear 09/15/2012 Dental Prophylaxis 10/04/2018 04/04/2018, 0 07/04/2017, 11/26/2014, Additional history exists Cervical Cancer Screening 09/15/2021 HPV/Cotest 09/15/2021 COVID-19 Vaccine ( season) 2023 Dental Oral Exam 10/29/2024 04/30/2024, , 07/04/2017, Additional history exists Influenza Vaccine (#1) 2024 03/23/2016, 2011 Dental X-Ray: Full Mouth 02/11/2025 022, 12/07/2017, 05/07/2014, Additional history exists SDOH Screening 04/18/2025 04/18/2024 Dental X-Ray: Bitewings 05/01/2025 04/30/19 25, 02/10/2022, 07/04/2017, Additional history exists Depression Monitoring 05/25/2025 11/22/2024, 025 Alcohol/Substance Use Screening 11/22/2025 11/22/2024 Disability Screening 11/22/2025 11/22/2024 Family Planning (PISQ) 11/22/2025 11/22/2024 Tobacco Screening 11/22/2025 11/22/2024 DTaP/Tdap/Td Vaccines (3 - Td or Tdap) 03/06/2027 03/06/2017, 07/24/2008 Zoster Vaccines (1 of 2) 09/15/2041 RSV Patients and Patients Aged 60 years or older (1 - 1-dose 75+ series) 09/15/2066 Meningococcal Vaccine Aged Out 07/24/2008 No sivan remy eligible based on patient's age to complete this topic HIV Screening Completed 11/22/2024 Hepatitis C Screening Completed 11/22/2024 HIB Vaccines Aged Out No longer eligi ble based on patient's age to complete this topic Hepatitis A Vaccines Aged Out No long er eligible based on patient's age to complete this topic IPV Vaccines Aged Out No longer eligi ble based on patient's age to complete this topic Meningococcal B Vaccine Aged Out No l onger eligible based on patient's age to complete this topic RSV under 20 months Aged Out No longe r eligible based on patient's age to complete this topic Rotavirus Vaccines Aged Out No longer eligible based on patient's age to complete this topic Procedures Procedure Name Priority Date/Time Associated Diagnosis Comments URINALYSIS WITH REFLEX MICROSCOPIC Routine 11/22/2024 10:22 AM EDT TSH W/REFLEX TO FT4 Routine 11/22/2024 1 0:22 AM EDT Recurrent loss CARDIOLIPIN AB (IGA,IGG,IGM) Routine 11/22/2024 10:22 AM EDT Recurrent loss LUPUS ANTICOAGULANT EVALUATION WITH REFLEX Routine 11/22/2024 10:22 AM EDT Recurrent loss HCG, TOTAL, QN Routine 11/22/2024 10:22 AM EDT Epigastric pain AMYLASE Routine 11/22/2024 10:22 AM EDT Epigastric pain LIPASE Routine 11/22/2024 10:22 AM EDT Epigastric pain COMPREHENSIVE METABOLIC PANEL Routine 11/22/2024 10:22 AM EDT Epigastric pain HEPATITIS C AB W/REFL TO HCV RNA, QN, PCR Routine 11/22/2024 10:22 AM EDT Epigastric pain HIV 1/2 ANTIGEN/ANTIBODY, FOURTH GENERATION W/RFL Routine 11/22/2024 10:22 AM EDT Epigastric pain CBC WITH AUTO DIFFERENTIAL Routine 11/22/2024 10:22 AM EDT Epigastric pain BITEWINGS - 4 RADIOGRAPHIC IMAGES Routine 04/30/2024 10:30 AM EST PERIODIC ORAL EVALUATION - ESTABLISHED PATIENT Routine 04/30/2024 10:30 AM EST INTRAORAL - COMPLETE SERIES OF RADIOGRAPHIC IMAGES Routine 02/10/2022 12:00 AM EDT PROPHYLAXIS - ADULT Routine 04/04/2018 1 2:00 AM EST from Last 3 Months or Most Recently Relevant to Health Maintenance Results * TSH W/Reflex to FT4 (11/22/2024 10:22 AM EDT) TSH reflex Free T4 0.85 0.32 - 4.0 uIU/mL [facility] Blood Venous blood specimen / Unknown 11/22/2024 10:22 AM EDT 11/22/2024 11:37 AM EDT Jossy Villagomez [facility] BLOOD ORDERABLES Monica ochoa Result Performing Organization Address City/State/[facility] Co de Phone Number [facility] [address] [place] [phone] * CBC auto differential (11/22/2024 10:22 AM EDT) Pathologist [facility] White Blood Count 5.1 4.8 - 10.8 X10*3/uL [facility] Red Blood Count 4.79 4.20 - 5.50 X10*6/uL [facility] Hemoglobin 14.4 12.0 - 16.0 g/dl [facility] Hematocrit 42.4 37.0 - 47.0 % [facility] Mean Corpuscular Volume 88.5 80.0 - 98.0 fL [facility] Mean Corpuscular Hemoglobin 30.1 27.0 - 33.0 pg [facility] Mean Corpuscular HGB Conc 34.0 31.0 - 35.0 g/dl [facility] Red Cell Distribution Width 12.3 11.0 - 16.0 % [facility] Platelet Count 245 160 - 400 X10*3/uL [facility] Mean Platelet Volume 10.8 9.4 - 12.3 fL [facility] Neutrophils Percent Auto 60.4 45 - 73 % [facility] Imm Gran Pct Auto 0.4 0.0 - 0.4 % [facility] Lymphocytes Percent Auto 31.1 20 - 40 % [facility] Monocytes Percent Auto 5.6 2 - 11 % [facility] Eosinophils Percent Auto 1.9 0 - 4 % [facility] Basophils Percent Auto 0.6 0 - 2 % [facility] NRBC Pct Auto 0.0 0.0 - 0.2 /100WBC [facility] Neutrophils Absolute Auto 3.1 2.0 - 8.3 x10*3/uL [facility] Imm Gran Abs Auto 0.02 0.00 - 0.03 X10*3/uL [facility] Lymphocytes Absolute Auto 1.6 1.2 - 4.9 X10*3/uL [facility] Monocytes Absolute Auto 0.3 0.1 - 1.2 X10*3/uL [facility] Eosinophils Absolute Auto 0.1 0.0 - 0.4 X10*3/uL [facility] Basophils Absolute Auto 0.0 0.0 - 0.2 X10*3/uL [facility] NRBC Abs Auto 0.000 0.0 - 0.012 X10*3/uL [facility] Blood Venous blood specimen / Unknown 11/22/2024 10:22 AM EDT 11/22/2024 11:37 AM EDT [facility] BLOOD ORDERABLES Monica l Result [facility] [address] [place], [place] [phone] * Hepatitis C Antibody with Reflex to HCV, RNA, Quantitative, Real-Time PCR (11/22/2024 10:22 AM EDT) Hepatitis C Antibody Nonreactive Nonreactive [facility] Comment:Antibodies to HCV no t detected; does not exclude early acuteHCV infection. Blood Venous blood specimen / Unknown 11/22/2024 10:22 AM EDT 11/22/2024 11:37 AM EDT [facility] BLOOD ORDERABLES Monica l Result Performing Organization Address [facility]/ZIP Co de Phone Number [facility] [address] [place] [address] [phone] * (ABNORMAL) Lupus Anticoagulant Evaluation with Reflex (11/22/2024 10:22 AM EDT) Lupus Interpretation see note [facility] Comment:A Lupus Anticoagulan t is not detected.Common causes for a prolonged screen and negativeconfirmatory test include factor deficiencies oranticoagulant therapy.Reference Range: Not DetectedFor additional information, please refer tohttp://Cemmerce.IPICO/faq/NYZ62a0(This link is being provided for informational/educational purposes only.)This interpretation is based on the following testresults. PTT (LAC) Screen 45(A) <=40 sec [facility] DRVVT Screen 33 <=45 sec [facility] dRVVT Confirmation [facility] 1:1 Mix TNP [facility] DRVVT 1:1 Mix Interpretation [facility] Hexagonal Phase Neutralization Negative Negative [facility] Comment:THIS TEST WAS PERFOR MED AT:[facility] [place] [address]LNFWBPLISAK BAEZ MD,PHD Thrombin Clotting Time [facility] Blood Venous blood specimen / Unknown 11/22/2024 10:22 AM EDT 11/22/2024 11:37 AM EDT [facility] BLOOD ORDERABLES Monica l Result Performing Organization Address [facility]/ZIP Co de Phone Number [facility] [address] [place] [address] [phone] * HIV-1/2 Antigen and Antibodies, Fourth Generation, with Reflexes (11/22/2024 10:22 AM EDT) HIV AB/AG Nonreactive Nonreactive [facility] Comment:HIV-1 p24 Ag and/or HIV-1/HIV-2 Ab not detected.A test result that is nonreactive does not exclude thepossibility of exposure to or infection with HIV-1 and/orHIV-2. Nonreactive results in this assay for individualswith prior exposure to HIV-1 and/or HIV-2 may be due toantigen and antibody levels that are below the limit ofdetection of this assay.The M_SOLUTION HIV Ag/Ab Combo assay result andsupplemental assay results should be interpreted inconjunction with the patient's clinical presentation,history and other laboratory results. If the results areinconsistent with clinical evidence, additional testing issuggested to confirm the result. Blood Venous blood specimen / Unknown 11/22/2024 10:22 AM EDT 11/22/2024 11:37 AM EDT [facility] BLOOD ORDERABLES Monica l Result [facility] [address] [place] [phone] * Cardiolipin Antibodies (IgA,IgG,IgM) (11/22/2024 10:22 AM EDT) Cardiolipin Antibody (IgG) <2.0 GPL-U/mL [facility] Comment:Value Interpretation ----- < 20.0 Antibody not detected> or = 20.0 Antibody detected Cardiolipin Antibody (IgM) <2.0 MPL-U/mL [facility] Comment: Value Interpretation----- < 20.0 Antibody not detected> or = 20.0 Antibody detectedThe antiphospholipid antibody syndrome (APS) is aclinical- pathologic correlation that includes aclinical event (e.g. arterial or venous thrombosis, morbidity) and persistent positiveantiphospholipid antibodies (IgM, IgG Cardiolipin [id number] antibodies greater than the 99th percentile; ora lupus anticoagulant). International consensusguidelines for APS suggest waiting at least 12 weeksbefore retesting to confirm antibody persistence.The Systemic Lupus International CollaboratingClinics immunological classification criteria forsystemic lupus erythematosus (SLE) include testing forisotype IgA, which has yet to be incorporated intoAPS criteria. Low level antiphospholipid antibodiesmay sometimes be detected in the setting of infection,drug therapy or aging.For additional information, please refer tohttp://education.IPICO/faq/JKO316(This link is being provided for informational/educational purposes only.)THIS TEST WAS PERFORMED AT:[facility] [place] [phone] ALEX MD Blood Venous blood specimen / Unknown 11/22/2024 10:22 AM EDT 11/22/2024 11:37 AM EDT [facility] BLOOD ORDERABLES Monica l Result [facility] [address] [place] [phone] * Urinalysis w/reflex microscopic (11/22/2024 10:22 AM EDT) Color Urine Yellow [facility] Appearance Urine Turbid [facility] PH 5.5 5.0 - 9.0 [facility] Glucose Urine UA Negative Negative mg/dL [facility] Urine Blood Negative Negative [facility] Specific Leonardo - Urine 1.025 1.005 - 1.025 [facility] Urine Protein Negative Neg-Trace mg/dL [facility] Urine Ketones Trace Negative mg/dL [facility] Nitrite Urine Negative Negative [facility] Leukocyte Esterase Urine Negative Negative [facility] 11/22/2024 10:2 2 AM EDT 11/22/2024 11:12 AM EDT Narrative [facility] - 11/22/2024 11:28 AM EDT Urine, Clean Catch [facility] URINE ORDERABLES Monica l Result Performing Organization Address [facility] Co de Phone Number [facility] [address] [place] [address] [phone] * hCG, Total, Quantitative (11/22/2024 10:22 AM EDT) HCG Quantitative <2 mIU/mL [facility] Comment:Weeks post LMP Appro ximate hCG(Last Menstrual Period) Range (mIU/ml)3 - 4 weeks 9 - 1304 - 5 weeks 75 - 2,6005 - 6 weeks 850 - 20,8006 - 7 weeks 4000 - 100,2007 - 12 weeks 11,500 - 289,51915 - 16 weeks 18,300 - 137,86279 - 29 weeks (2nd trimester) 1,400 - 53,35215 - 41 weeks (3rd trimester) 940 - 60,000The Zurita B- hCG assay is used for the early detection ofpregnancy; it cannot be used to diagnose any conditionunrelated to . If a B-hCG level is not supportedby the clinical evidence, results should be confirmed by analternative method (qualitative urine hCG, for example). Blood Venous blood specimen / Unknown 11/22/2024 10:22 AM EDT 11/22/2024 11:37 AM EDT [facility] BLOOD ORDERABLES Monica l Result Performing Organization Address City/[facility] Co de Phone Number [facility] [address] [place] [address] [phone] * Lipase (11/22/2024 10:22 AM EDT) Lipase 26 8 - 78 U/L [facility] Blood Venous blood specimen / Unknown 11/22/2024 10:22 AM EDT 11/22/2024 11:37 AM EDT [facility] BLOOD ORDERABLES Monica l Result Performing Organization Address City/[facility]/ZIP Co de Phone Number [facility] [address] [place] [address] [phone] * Amylase (11/22/2024 10:22 AM EDT) Amylase 98 28 - 100 U/L [facility] Blood Venous blood specimen / Unknown 11/22/2024 10:22 AM EDT 11/22/2024 11:37 AM EDT [facility] BLOOD ORDERABLES Monica l Result Performing Organization Address City/[facility] Co de Phone Number [facility] [address] [place] [address] [phone] * (ABNORMAL) Comprehensive Metabolic Panel (11/22/2024 10:22 AM EDT) Pathologist [facility] Sodium 139 135 - 145 mmol/L [facility] Potassium 3.9 3.3 - 5.1 mmol/L [facility] Chloride 107 96 - 108 mmol/L [facility] Carbon Dioxide 27 22 - 29 mmol/L [facility] Anion Gap 9(L) 12 - 20 [facility] Urea Nitrogen (BUN) 8(L) 9 - 16 mg/dL [facility] Creatinine, Serum 0.77 0.5 - 1.4 mg/dL [facility] Estimated Glomerular Filt Rate >60 [facility] Comment:Chronic Kidney Disea se: Estimated GFR < 60 mL/min/1.87r5Cpqwma Kidney Disease: Estimated GFR < 15 mL/min/1.73m2 Glucose 79 60 - 115 mg/dL [facility] Calcium 9.2 8.4 - 10.2 mg/dL [facility] Bilirubin, Total 0.6 0.0 - 1.0 mg/dL [facility] Aspartate Amino Transferase 21 5 - 31 U/L [facility] Alanine Aminotransferase 13 0 - 31 U/L [facility] Total Protein 8.6(H) 6.5 - 8.0 g/dL [facility] Albumin Level 5.1(H) 3.5 - 5.0 g/dL [facility] Alkaline Phosphatase 43 39 - 117 U/L [facility] Blood Venous blood specimen / Unknown 11/22/2024 10:22 AM EDT 11/22/2024 11:37 AM EDT [facility] BLOOD ORDERABLES Monica l Result [facility] [address] [place] [phone] from Last 3 Months Insurance [facility] [place] [phone] Care Teams Stamping Machine Operator Relationship Specialty Start Date End Date Jossy Villagomez CNP [address] [place] [address] PCP - General Family Medicine 11/22/24
--- OUTSIDE RECORDS SUMMARY | 2024-12-13 14:51 | XMS_ITS | Encounter Summary ---
Author Organization [employer] Address 75 [facility] 7t [place] [address] Care Team Providers Care Harness Mender Name Role Phone Johanna Messer ACCOUNTING SUPPORT SPECIALIST Primary Care Provider [phone] Lenora Sands STRUCTURAL ENGINEERING DRAFTING OFFICER Primary Care Provider [phone] Jossy Villagomez TOOLER Primary Care Provider + [phone] Encounter Details Date Type Department Care Team (Late Contact Info) Description 04/27/[address] [facility] MEDICINE [address] [place] [address] Johanna Messer FNP [address] [place] [address] Social History Tobacco Use Types Packs/Day Years [...] Description 12/23/2024 10:00 AM EDT Office Visit [facility] CHC ADULT DENTAL [address] [place] [address] Luzmaria Lester DDS [address] [place], [place] [phone] 04/02/2025 2:00 PM EST Office Visit [facility] OPTOMETRY [address] [place], [place] [phone] Jacqui Ramos, OD [address] [place] [address] documented as of this encounter Visit Diagnoses Not on filedocumented in this encounter Care Teams Harness Mender Relationship Specialty Start Date End Date Johanna Messer FNP [address] [place], [place] [phone] PCP - General Family Medicine 12/26/22 10/11/23 Lenora Sands NP [address] [place], [place] [phone] PCP - General Family Medicine 10/12/23 11/21/24 Jossy Villagomez CNP 230 [place], [place] [address] PCP - General Family Medicine 11/22/24 documented as of this encounter
--- OUTSIDE RECORDS SUMMARY | 2024-12-13 14:51 | XMS_ITS | Encounter Summary ---
Author Organization [employer] Address 75 [facility] 7t [place] [address] Care Team Providers Care Associate Sales Manager Name Role Phone Johanna Messer Primary Care Provider [phone] Lenora Sands RETURNED GOODS SORTER Primary Care Provider [phone] Jossy Villagomez VENEER CLIPPER HELPER Primary Care Provider [phone] Encounter Details Date Type Department Care Team (Late st Contact Info) Description 04/25/2023 Orders Only [facility] MED & PEDS [address] [place], [place] [phone] Johanna Messer FNP [address] [place], [place] [phone] Social History Tobacco Use Types Packs/Day Years [...] Description 12/23/2024 10:00 AM EDT Office Visit [facility] ADULT DENTAL [address] [place] [address] Luzmaria Lester MIKE [address] [place] [address] 04/02/2025 2:00 PM EST Office Visit [facility] OPTOMETRY [address] [place], [place] [phone] Jacqui Ramos, OD [address] [place] [address] documented as of this encounter Visit Diagnoses Not on filedocumented in this encounter Care Teams Associate Sales Manager Relationship Specialty Start Date End Date Johanna Messer FNP [address] [place] [address] PCP - General Family Medicine 12/26/22 10/11/23 Lenora Sands NP [address] [place] [address] PCP - General Family Medicine 10/12/23 11/21/24 Jossy Villagomez CNP [address] [place] [address] PCP - General Family Medicine 11/22/24 documented as of this encounter
--- OUTSIDE RECORDS SUMMARY | 2024-12-13 14:51 | XMS_ITS | Encounter Summary ---
Author Organization [employer] Address 75 [facility] 7t [place] [address] Care Team Providers Care Carbonizer Tester Name Role Phone Jossy Villagomez CNP Primary Care Provider [phone] Reason for Visit * Reason Onset Date Comments Nurse Triage 12/10/2024 Encounter Details Date Type Department Care Team ([facility] st Contact Info) Description 12/10/2024 Telephone [facility] MEDICINE [address] [place] [address] Jossy Villagomez CNP 230 [place] [address] Nurse Triage Social History Tobacco Use Types Packs/Day Years [...] your housing situation today? I have stephan ousmane 04/18/[address] you li [...] encounter Miscellaneous Notes * Telephone Encounter - Janae Perry RN - 12/10/2024 8:37 AM EDT No hand mica plate layer needed as this scenario writer speaks Portuguese. Call returned to Michael Jauregui to triage below at [phone]. Reports having RLQ pain and urinary frequency and dark color. Per pt also having right flank pain. No odor. Mild nausea. No fever or vomiting. Onset was 2 weeks ago for pain. Urinary sx onset 4 days ago. White vaginal discharge. Pt advised of disposition, agrees to sickonsite with PCP. Multiple (2) protocols were used on this call. Disposition for Call: See in Office or Video Visit Today Future Appointments Date Time Provider Department Center 12/10/2024 10:00 AM Jossy Villagomez CNP [facility] 12/13/2024 2:00 PM Jossy Villagomez CNP [facility] 12/23/2024 10:00 AM Luzmaria Lester DDS [facility] 04/02/2025 2:00 PM Jacqui Ramos, OD [facility] Insurance verified as active per Real Time Eligibility in [facility]. Protocol Used: Pelvic Pain - Female (Adult) Protocol-Based Disposition: See in Office or Video Visit Today Positive Triage Question: * Mild to Moderate pain that comes and goes (cramps) and present > 48 hours * All higher-acuity triage questions were negative Protocol Used: Urinary Symptoms (Adult) Protocol-Based Disposition: See in Office or Video Visit Today Video visit offer not recorded Positive Triage Questions: * Side (flank) or lower back pain present * Urinating more frequently than usual (i.e., frequency) OR new-onset of the feeling of an urgent need to urinate (i.e., urgency) * All higher-acuity triage questions were negative Care Advice Discussed: * Reasons To Call Back - Fever occurs - Pain or burning with urination - Unable to urinate and bladder feels full - You become worse * Telephone Encounter - Humaira Hopper - 12/10/2024 8:14 AM EDT Symptoms: Abdominal Pain - Female - Not , Urine Symptoms Outcome: Talk to a nurse or provider within 15 minutes Reason: Walks bent over The caller accepted this outcome. Contact pt at [phone] Need hand mica plate layer documented in this encounter Plan of Treatment Upcoming Encounters Date Type Department Care Team (Late st Contact Info) Description 12/23/2024 10:00 AM EDT Office Visit [facility] CHC ADULT DENTAL [address] [place] [address] Luzmaria Lester, JOVIS 230 [place], [place] [phone] 04/02/2025 2:00 PM EST Office Visit [facility] OPTOMETRY [address] [place] [address] Jacqui Ramos, OD 230 [place] [address] documented as of this encounter Visit Diagnoses Not on filedocumented in this encounter Additional Health Concerns Assessment Noted Time PHQ-9 Depression Total Score: 18 025 9:49 AM EDT documented as of this encounter Care Teams Carbonizer Tester Relationship Specialty Start Date End Date Jossy Villagomez CNP [address] [place] [address] PCP - General Family Medicine 11/22/24 documented as of this encounter
--- OUTSIDE RECORDS SUMMARY | 2024-12-13 14:51 | XMS_ITS | Encounter Summary ---
Author Organization [employer] Address 75 [facility] 7t [place] [address] Care Team Providers Care Classifier Operator Name Role Phone Jamal Delgado Primary Care Provider Unavail Johanna Johnson AS400 ANALYST Primary Care Provider [phone] Lenora Sands WARP SPINNER Primary Care Provider [phone] Jossy Villagomez OIL AND GAS SUPERINTENDENT Primary Care Provider [phone] Reason for Visit * Reason Onset Date Comments Med Refill 09/28/2022 Encounter Details Date Type Department Care Team (Late st Contact Info) Description 09/28/2022 Telephone [facility] MEDICINE [address] [place] [address] Jamal Delgado AGNP Med Refill Social History Tobacco Use Types Packs/Day Years [...] Orientation Straight 02/14/2022 10 :20 AM EDT COVID-19 Exposure Response Date Recorded In the last 10 days, have yo u been in contact with someone who was confirmed or suspected to have Coronavirus/COVID-19? No / Unsure 08/31/2022 2:12 PM EDT documented as of this encounter Miscellaneous Notes * Telephone Encounter - Silvia Sims RN - 2022 10:55 AM EDT Pt. Has apt. Today on 2022. Advised to discussed with provider. Pt. Verbally agreed and understood. * Telephone Encounter - Vicky Lujan - 10/05/2022 4:20 PM EDT Tc from pt requesting medication status. Please contact pt at [phone] * Telephone Encounter - Monika Rios LPN - 09/28/2022 9:33 AM EDT Please review Patient's request for Ambien last prescribed 05/24/21 * Telephone Encounter - Ora Dc - 09/28/2022 8:59 AM EDT Tc from patient requesting a med refill on medication zolpidem [address] Delgado documented in this encounter Plan of Treatment Upcoming Encounters Date Type Department Care Team (Late st Contact Info) Description 12/23/2024 10:00 AM EDT Office Visit [facility] CHC ADULT DENTAL [address] [place] [address] Luzmaria Lester, DDS 230 [place] [address] 04/02/2025 2:00 PM EST Office Visit [facility] OPTOMETRY [address] [place] [address] Jacqui Ramos, OD 230 [place] [address] documented as of this encounter Visit Diagnoses Not on filedocumented in this encounter Care Teams Classifier Operator Relationship Specialty Start Date End Date Jamal Delgado AGNP PCP - General Family Medicine 01/20/22 12/25/22 Johanna Messer FNP [address] [place] [address] PCP - General Family Medicine 12/26/22 10/11/23 Lenora Sands NP [address] [place] [address] PCP - General Family Medicine 10/12/23 11/21/24 Jossy Villagomez CNP [address] [place] [address] PCP - General Family Medicine 11/22/24 documented as of this encounter
--- OUTSIDE RECORDS SUMMARY | 2024-12-13 14:51 | XMS_ITS | Encounter Summary ---
Author Organization [employer] Address 75 [facility] 7t [place] [address] Care Team Providers Care Snow Removal/Plowing Name Role Phone Jossy Villagomez JL Primary Care Provider [phone] Encounter Details Date Type Department Care Team (Latest Contact Info) Description 12/13/2024 Travel Social History Tobacco Use Types Packs/Day Years [...] Description 12/23/2024 10:00 AM EDT Office Visit [facility] CHC ADULT DENTAL [address] [place] [address] Luzmaria Lester DDS [address] [place] [address] 04/02/2025 2:00 PM EST Office Visit [facility] OPTOMETRY [address] [place] [address] Richard, Jacqui, OD [address] [place] [address] documented as of this encounter Visit Diagnoses Not on filedocumented in this encounter Additional Health Concerns Assessment Noted Time PHQ-9 Depression Total Score: 18 025 9:49 AM EDT documented as of this encounter Care Teams Snow Removal/Plowing Relationship Specialty Start Date End Date Jossy Villagomez CNP [address] [place] [address] PCP - General Family Medicine 11/22/24 documented as of this encounter
--- OUTSIDE RECORDS SUMMARY | 2024-12-13 14:51 | XMS_ITS | Encounter Summary ---
Author Organization [employer] Address 75 [facility] 7t [place] [address] Care Team Providers Care Chart Computer Name Role Phone Jossy Villagomez CNP Primary Care Provider [phone] Reason for Visit * Reason Onset Date Comments Call Back Request 12/10/2024 Encounter Details Date Type Department Care Team ([facility] st Contact Info) Description 12/10/2024 Telephone [facility] MEDICINE [address] [place] [address] Jossy Villagomez CNP [address] [place] [address] Call Back Request Social History Tobacco Use Types Packs/Day Years [...] encounter Miscellaneous Notes * Telephone Encounter - Gemini Ordaz RN - 12/10/2024 10:48 AM EDT TC to patitent. New appointment time scheduled. * Telephone Encounter - Jakob Jauregui - 12/10/2024 9:43 AM EDT Tc from pt requesting a call back regarding sick onsite visit. Please contact pt at [phone] documented in this encounter Plan of Treatment Upcoming Encounters Date Type Department Care Team (Late st Contact Info) Description 12/23/2024 10:00 AM EDT Office Visit [facility] CHC ADULT DENTAL [address] [place] [address] Luzmaria Lester, MIKE [facility] [place], [place] [phone] 04/02/2025 2:00 PM EST Office Visit [facility] OPTOMETRY [address] [place], [place] [phone] Jacqui Ramos, OD [address] [place] [address] documented as of this encounter Visit Diagnoses Not on filedocumented in this encounter Additional Health Concerns Assessment Noted Time PHQ-9 Depression Total Score: 18 025 9:49 AM EDT documented as of this encounter Care Teams Chart Computer Relationship Specialty Start Date End Date Jossy Villagomez CNP 230 [place] [address] PCP - General Family Medicine 11/22/24 documented as of this encounter
--- OUTSIDE RECORDS SUMMARY | 2024-12-13 14:51 | XMS_ITS | Encounter Summary ---
Author Organization [employer] Address 75 [facility] 7t [place] [address] Care Team Providers Care Frog Or Oyster Farmworker Name Role Phone Jossy Villagomez CNP Primary Care Provider [phone] Reason for Visit * Reason Onset Date Comments chart prep 12/13/2024 Encounter Details Date Type Department Care Team ([facility] st Contact Info) Description 12/13/2024 Telephone [facility] CHC MED & PEDS [address] [place] [address] Jossy Villagomez CNP [address] [place] [address] chart prep Social History Tobacco Use Types Packs/Day Years [...] encounter Miscellaneous Notes * Telephone Encounter - Nuris Guzman MA - 12/13/2024 8:59 AM EDT Chart Prep Labs: not done Images: not done Referrals: appointment pending Vaccines due: Covid, PCV20, and Hep B Screenings: Papsmear Overdue care gaps: Not applicable documented in this encounter Plan of Treatment Upcoming Encounters Date Type Department Care Team (Late st Contact Info) Description 12/23/2024 10:00 AM EDT Office Visit [facility] CHC ADULT DENTAL [address] [place] [address] Luzmaria Lester, DDS [address] [place] [address] 04/02/2025 2:00 PM EST Office Visit [facility] OPTOMETRY [address] [place] [address] Richard, Jacqui, OD [address] [place] [address] documented as of this encounter Visit Diagnoses Not on filedocumented in this encounter Additional Health Concerns Assessment Noted Time PHQ-9 Depression Total Score: 18 025 9:49 AM EDT documented as of this encounter Care Teams Frog Or Oyster Farmworker Relationship Specialty Start Date End Date Jossy Villagomez CNP [address] [place] [address] PCP - General Family Medicine 11/22/24 documented as of this encounter
[2024-12-14 03:48] LABS: Hemoglobin A1C 105.6307 umol/L; Total Hemoglobin (HGBA1C) 3419.9799 umol/L
[2024-12-20 15:24] LABS: Anti Nuclear Antibody Screen NEGATIVE (NEGATIVE)
== END 2024-12-13 14:49 | disposition home or self-care (01) ==
LOC: HO.CHCLDS 14:48
DX: Z01.84 Encounter for antibody response examination (principal); R82.4 Acetonuria; R52 Pain, unspecified
CPT/HCPCS: 36415; 82306; 83036; 86038; 86431

== ENCOUNTER 2025-01-20 14:52 | Outpatient (REF) | payer MEDICAID, SELFPAY ==
--- NOTE | ~2025-01-20 | US_ITS ---
EXAMINATION: US PELVIS CLINICAL INFORMATION: Recurrent loss COMPARISON: Ultrasound 12/04/2020 TECHNIQUE: Ultrasound of the pelvis is performed using both transabdominal and transvaginal transducers along with Doppler. Transvaginal imaging is performed due to inadequate visualization transabdominally. FINDINGS: Uterus: The uterus is anteverted and measures 7.4 x 3.3 x 4.7 cm. Endometrium measures 0.4 cm.. There is a slightly heterogeneous predominately hyperechoic focus in the endometrial canal measuring 0.9 x 0.5 x 1.1 cm. There appears vascularity in this focus. There is a hyperechoic focus in the lower uterine segment measuring 0.6 x 0.3 x 0.3 cm. Possible focal vascularity. No uterine myometrial lesions seen. . Adnexa: Right ovary measures 4 x 2 x 3.6 cm. Volume 15.1 mL. Left ovary measures 4 x 2.1 x 2.3 cm. Volume 10.1 mL. Left ovarian corpus luteal cyst measuring 1.2 cm. Vascular flow in bilateral ovaries. No free fluid. US/US pelvic and transvaginal IMPRESSION: Hyperechoic focus in the endometrial canal measuring 0.9 x 0.5 x 1.1 cm. There appears be vascularity within this focus. Hypoechoic focus in the lower uterine segment measuring 0.6 x 0.3 x 0.3 cm, with possible focal vascularity. Differential consideration include polyp versus other etiologies. Clinically correlate. This can be further characterized with MRI with and without contrast Electronically signed by: Tej Trejo MD 01/20/2025 03:57 PM EDT
--- NOTE | ~2025-01-20 | XR_ITS ---
CLINICAL HISTORY: lower back pain that radiates down right leg 3 views lumbar spine Comparison: None provided Findings: There is minimal retrolisthesis of L5 with respect to S1. Mild disc space narrowing at L5-S1. No acute fractures or dislocation. Moderate diffuse colonic fecal retention. IMPRESSION: Mild degenerative changes at L5-S1. Moderate diffuse colonic fecal retention. This document has been electronically signed by: Tommy Murphy MD on 01/22/2025 10:24:35
--- OUTSIDE RECORDS SUMMARY | 2025-01-20 17:15 | XMS_ITS | Encounter Summary ---
Author Organization [employer] Address 75 [facility] 7t [place] [address] Care Team Providers Care Fabrication Welder Name Role Phone Johanna Messer WET ROOM WORKER Primary Care Provider [phone] Lenora Sands REFRIGERATION SPECIALIST Primary Care Provider [phone] Jossy Villagomez EVENT OPERATIONS MANAGER Primary Care Provider [phone] Encounter Details Date Type Department Care Team (Late Contact Info) Description 04/27/2023 Abstract [facility] MEDICINE [address] [place] [address] Johanna Messer FNP [address] [place] [address] Social History Tobacco Use Types Packs/Day Years [...] Care Team (Late st Contact Info) Description 04/02/2025 2:00 PM EST Office Visit [facility] OPTOMETRY [address] [place] [address] Jacqui Ramos OD [address] [place] [address] documented as of this encounter Visit Diagnoses Not on filedocumented in this encounter Care Teams Fabrication Welder Relationship Specialty Start Date End Date Johanna Messer FNP [address] [place] [address] PCP - General Family Medicine 12/26/22 10/11/23 Lenora Sands NP [address] [place] [address] PCP - General Family Medicine 10/12/23 11/21/24 Jossy Villagomez CNP [address] [place] [address] PCP - General Family Medicine 11/22/24 documented as of this encounter
--- OUTSIDE RECORDS SUMMARY | 2025-01-20 17:15 | XMS_ITS | Encounter Summary ---
Author Organization [employer] Address 75 [facility] 7t [place] [address] Care Team Providers Care Certified Meeting Professional Name Role Phone Johanna Messer Primary Care Provider [phone] Lenora Sands SWEATBAND CUTTING MACHINE OPERATOR Primary Care Provider [phone] Jossy Villagomez VULCANIZER RUBBER PLATE Primary Care Provider [phone] Reason for Visit * Reason Onset Date Comments Results 04/24/2023 Encounter Details Date Type Department Care Team (Late st Contact Info) Description 04/24/2023 Telephone [facility] MEDICINE [address], [place] [phone] Johanna Messer FNP [address], [place] [phone] Results Social History Tobacco Use Types Packs/Day [...] PM EST T/C placed to pt via [email or web address] Drawer In Stitch Bonding Machine Jitendra #[id number]. Advised pt H. Pylori stool not detected 04/12/23. Advised BMP shows lab needs to be collected. Pt agrees to complete lab order. Pt requesting referral for further testing as she is still experiencing nausea and is having difficulty eating despite trying to eat healthy foods. Pt requesting rx for Ondansetron originally rx [place] [facility]. States this was effective for nausea and famotidine did not improve her symptoms. Advised will forward requests to pcp for review. * Telephone Encounter - Fred Guerrero - 04/24/2023 2:51 PM EST TC from pt requesting call back regarding Results. Type of results: Lab works Date when done: 04/12/2023 Facility: [facility] documented in this encounter Plan of Treatment Upcoming Encounters Date Type Department Care Team (Late st Contact Info) Description 04/02/2025 2:00 PM EST Office Visit [facility] OPTOMETRY [address] [place] [address] Jacqui Ramos, OD [address] [place] [address] documented as of this encounter Visit Diagnoses Not on filedocumented in this encounter Care Teams Certified Meeting Professional Relationship Specialty Start Date End Date Johanna Messer FNP [address] [place] [address] PCP - General Family Medicine 12/26/22 10/11/23 Lenora Sands NP [address] [place] [address] PCP - General Family Medicine 10/12/23 11/21/24 Jossy Villagomez CNP [address] [place] [address] PCP - General Family Medicine 11/22/24 documented as of this encounter
--- OUTSIDE RECORDS SUMMARY | 2025-01-20 17:15 | XMS_ITS | Encounter Summary ---
Author Organization [employer] Address 75 [facility] 7t [place] [address] Care Team Providers Care Ginner Name Role Phone Johanna Messer Primary Care Provider [phone] Lenora Sands FISH TRAPPER Primary Care Provider [phone] Jossy Villagomez PUBLIC HEALTH EDUCATOR Primary Care Provider [phone] Encounter Details Date Type Department Care Team (Late Contact Info) Description 04/25/2023 Orders Only [facility] CHC MED & PEDS [address] [place] [address] Johanna Messer FNP [address] [place] [address] Social History Tobacco Use Types Packs/Day Years [...] Description 04/02/2025 2:00 PM EST Office Visit [facility] OPTOMETRY [address] [place] [address] Jacqui Ramos, OD [address] [place] [address] documented as of this encounter Visit Diagnoses Not on filedocumented in this encounter Care Teams Ginner Relationship Specialty Start Date End Date Johanna Messer FNP [address] [place] [address] PCP - General Family Medicine 12/26/22 10/11/23 Lenora Sands NP [address] [place] [address] PCP - General Family Medicine 10/12/23 11/21/24 Jossy Villagomez CNP [address] [place] [address] PCP - General Family Medicine 11/22/24 documented as of this encounter
--- OUTSIDE RECORDS SUMMARY | 2025-01-20 17:15 | XMS_ITS | Encounter Summary ---
Author Organization [employer] Address 75 [facility] 7t [place] [address] Care Team Providers Care Opener Verifier Packer Customs Name Role Phone Jossy Villagomez CNP Primary Care Provider [phone] Reason for Visit * Reason Onset Date Comments chart prep 01/16/2025 Encounter Details Date Type Department Care Team ([facility] st Contact Info) Description 01/16/2025 Telephone [facility] CHC MED & PEDS [address] [place], [place] [phone] Jossy Villagomez CNP [address] [place] [address] chart prep Social History Tobacco Use Types [...] Telephone Encounter - Nuris Guzman MA - 01/16/2025 8:53 AM EDT Chart Prep Labs: done Images: not done Referrals: appointment pending US 01/20/25 Vaccines due: Covid, Flu, PCV20, Hep B, and HPV Screenings: not applicable Overdue care gaps: Not applicable documented in this encounter Plan of Treatment Upcoming Encounters Date Type Department Care Team (Late st Contact Info) Description 04/02/2025 2:00 PM EST Office Visit [facility] OPTOMETRY [address] [place] [address] Jacqui Ramos, OD [address] [place] [address] documented as of this encounter Visit Diagnoses Not on filedocumented in this encounter Additional Health Concerns Assessment Noted Time PHQ-9 Depression Total Score: 18 025 9:49 AM EDT documented as of this encounter Care Teams Opener Verifier Packer [employer] Relationship Specialty Start Date End Date Jossy Villagomez CNP PCP - General Family Medicine 11/22/24 documented as of this encounter
--- OUTSIDE RECORDS SUMMARY | 2025-01-20 17:15 | XMS_ITS | Clinical Summary ---
Author Organization [employer] Address [address] [facility] [address] [place] [address] Care Team Providers Care Tobacco Conditioner Name Role Phone Jossy Villagomez JL Primary Care Provider [phone] Allergies Active Allergy Reactions Criticality Noted Date Comments Pollen Extract 09/01/2022 Pollen, etc. Medications famotidine (Pepcid) 20 MG tabletIndicatio ns:Epigastric pain Take 1 tablet (20 mg) by mouth 2 times daily. 60 tablet 5 Active omeprazole (PriLOSEC) [address] capsuleIndicati ons:Epigastric pain Take 1 capsule (20 mg) by mouth Once per day. 30 capsule 5 Active triamcinolone (Kenalog) 0.1 % ointmentIndicat ions:Hyperpigme ntation Apply topically if needed in the morning and at bedtime for rash. 80 g 5 Active cholecalciferol (Vitamin D-3) 25 MCG (1000 UT) tabletIndicatio ns:Vitamin D deficiency Take 1 tablet (25 mcg) by mouth Once per day. 60 tablet 2 5 Active Active Problems Problem Noted Date Diagnosed Date [...] Encounters Date Type Department Care Team Description 01/16/2025 Telephone [facility] [address] [place] [address] Jossy Villagomez CNP chart prep 12/18/2024 Telephone [facility] [address] [place] [address] Jossy Villagomez CNP chart prep 12/17/2024 Results Follow-Up [facility] [address] [place] [address] Jossy Villagomez CNP Rheumatoid Factor, Vitamin D, 25-Hydroxy, Total, Immunoassay 12/17/2024 Orders Only [facility] [address] [place] [address] Jossy Villagomez CNP Vitamin D deficiency (Primary Dx) 12/13/2024 2:00 PM EDT Office Visit [facility] [address] [place] [address] Jossy Villagomez CNP Chronic pain syndrome (Primary Dx); Epigastric pain; Chronic right-sided low back pain with right-sided sciatica; Hyperpigmentation; Ingrown hair; Healthcare maintenance; Pelvic pain 12/13/2024 Travel 12/13/2024 Telephone [facility] [address] [place] [address] Jossy Villagomez CNP chart prep 12/10/[address] [address] Jossy Villagomez CNP Call Back Request 12/10/[address] [address] Jossy Villagomez CNP Nurse Triage 12/02/2024 Results Follow-Up [facility] [address] [place] [phone] Jossy Villagomez CNP CBC auto differential, HIV-1/2 Antigen and Antibodies, Fourth Generation, with Reflexes, Hepatitis C Antibody with Reflex to HCV, RNA, Quantitative, Real-Time PCR, Additional followed-up results: 7 11/22/2024 9:15 AM EDT Office Visit [address] [address] Jossy Villagomez CNP Epigastric pain (Primary Dx); Recurrent loss 11/22/2024 Orders Only [address] [address] Jossy Villagomez CNP Ketonuria (Primary Dx) 11/22/2024 Orders Only [address] [address] Jossy Villagomez CNP 11/22/2024 Travel 11/21/[address] [address] Jossy Villagomez CNP Chart Prep 11/21/[address] [address] Lenora Sands, JULES Nurse Triage from Last 3 Months Immunizations [...] Description 04/02/2025 2:00 PM EST Office Visit [facility] [address] [place] [address] Richard, Jacqui, OD [address] [place] [address] Health Maintenance Due Date Last Done Comments [...] exists Cervical Cancer Screening 09/15/2021 HPV/Cotest 09/15/2021 Dental Oral Exam 10/29/2024 04/30/2024, , 07/04/2017, Additional history exists COVID-19 Vaccine ( season) 2024 Influenza Vaccine (#1) 2024 03/23/2016, 2011 Dental [...] Procedure Name Priority Date/Time Associated Diagnosis Comments US PELVIS TRANSVAGINAL Routine 5 3:03 PM EDT Recurrent loss VITAMIN D,25-OH,TOTAL,IA Routine 12/13/2024 2:51 PM EDT Chronic pain syndrome ABDI SCREEN, IFA, W/REFL TITER AND PATTERN Routine 12/13/2024 2:51 PM EDT Chronic pain syndrome RHEUMATOID FACTOR Routine 12/13/2024 2:5 1 PM EDT Chronic pain syndrome HEMOGLOBIN A1C Routine 12/13/2024 2:51 PM EDT Ketonuria URINALYSIS WITH REFLEX MICROSCOPIC Routine 11/22/2024 10:22 [...] Recently Relevant to Health Maintenance Results * US Pelvis Transvaginal (01/20/2025 3:03 PM EDT) Anatomical Region Laterality Modality Pelvis Ultrasound 01/20/2025 3:03 PM EDT Narrative 01/20/2025 3:59 PM EDT [place] [address] Ultrasound Report Signed Patient: Michael Rodas MR#: [id number] : 1990 Acct:[id number] Age/Sex: 34 / F ADM Date: 01/20/25 Loc: HO.US Attending Dr: Jossy Villagomez HORTICULTURAL THERAPIST Ordering Physician: Jossy Villagomez NP Date of Service: 01/20/25 Procedure(s): US pelvic and transvaginal Accession Number(s): [id number] cc: Jossy Villagomez NP Reason for Exam: RECURRENT LOSS EXAMINATION: US PELVIS CLINICAL INFORMATION: Recurrent loss COMPARISON: Ultrasound 12/04/2020 TECHNIQUE: Ultrasound of the pelvis is performed using both transabdominal and transvaginal transducers along with Doppler. Transvaginal imaging is performed due to inadequate visualization transabdominally. FINDINGS: Uterus: The uterus is anteverted and measures 7.4 x 3.3 x 4.7 cm. Endometrium measures 0.4 cm.. There is a slightly heterogeneous predominately hyperechoic focus in the endometrial canal measuring 0.9 x 0.5 x 1.1 cm. There appears vascularity in this focus. There is a hyperechoic focus in the lower uterine segment measuring 0.6 x 0.3 x 0.3 cm. Possible focal vascularity. No uterine myometrial lesions seen. . Adnexa: Right ovary measures 4 x 2 x 3.6 cm. Volume 15.1 mL. Left ovary measures 4 x 2.1 x 2.3 cm. Volume 10.1 mL. Left ovarian corpus luteal cyst measuring 1.2 cm. Vascular flow in bilateral ovaries. No free fluid. US/US pelvic and transvaginal IMPRESSION: Hyperechoic focus in the endometrial canal measuring 0.9 x 0.5 x 1.1 cm. There appears be vascularity within this focus. Hypoechoic focus in the lower uterine segment measuring 0.6 x 0.3 x 0.3 cm, with possible focal vascularity. Differential consideration include polyp versus other etiologies. Clinically correlate. This can be further characterized with MRI with and without contrast Electronically signed by: Tej Trejo MD 01/20/2025 03:57 PM EDT RP Dictated By: Tej Trejo MD Signed By: <Electronically signed by Tej Trejo MD in OV> 01/20/25 1557 DD/ 1503 TD/TT: 01/20/25 1520 Mitten Stitcher: Procedure Note Donotuseinterpreter, Image - 01/20/2025 [place] [address] Ultrasound Report Signed Patient: Michael Rodas#: [id number] : 1990Acct:[id number] Age/Sex: 34 / FADM Date: 01/20/25 Loc: HO.US Attending Dr: Jossy Villagomez HORTICULTURAL THERAPIST Ordering Physician: Jossy Villagomez NP Date of Service: 01/20/25 Procedure(s): US pelvic and transvaginal Accession Number(s): [id number] cc: Jossy Villagomez NP Reason for Exam: RECURRENT LOSS EXAMINATION: US PELVIS CLINICAL INFORMATION: Recurrent loss COMPARISON: Ultrasound 12/04/2020 TECHNIQUE: Ultrasound of the pelvis is performed using both transabdominal and transvaginal transducers along with Doppler. Transvaginal imaging is performed due to inadequate visualization transabdominally. FINDINGS: Uterus: The uterus is anteverted and measures 7.4 x 3.3 x 4.7 cm. Endometrium measures 0.4 cm.. There is a slightly heterogeneous predominately hyperechoic focus in the endometrial canal measuring 0.9 x 0.5 x 1.1 cm. There appears vascularity in this focus. There is a hyperechoic focus in the lower uterine segment measuring 0.6 x 0.3 x 0.3 cm. Possible focal vascularity. No uterine myometrial lesions seen. . Adnexa: Right ovary measures 4 x 2 x 3.6 cm. Volume 15.1 mL. Left ovary measures 4 x 2.1 x 2.3 cm. Volume 10.1 mL. Left ovarian corpus luteal cyst measuring 1.2 cm. Vascular flow in bilateral ovaries. No free fluid. US/US pelvic and transvaginal IMPRESSION: Hyperechoic focus in the endometrial canal measuring 0.9 x 0.5 x 1.1 cm. There appears be vascularity within this focus. Hypoechoic focus in the lower uterine segment measuring 0.6 x 0.3 x 0.3 cm, with possible focal vascularity. Differential consideration include polyp versus other etiologies. Clinically correlate. This can be further characterized with MRI with and without contrast Electronically signed by: Tej Trejo MD 01/20/2025 03:57 PM EDT Dictated By: Tej Trejo MD Signed By: <Electronically signed by Tej Trejo MD in OV> 01/20/25 1557 DD/ 1503 TD/TT: 01/20/25 1520 Mitten Stitcher: ALONDRA [facility] IMG US PROCEDURES Final R esult * (ABNORMAL) Vitamin D, 25-Hydroxy, Total, Immunoassay (12/13/2024 2:51 PM EDT) Vitamin D 25-OH Total 22.5(L) >30 ng/mL [facility] Comment: Health Based Reference Values*< 20 ng/mL Cgxubnvrm83-21 ng/mL Insufficient> 30 ng/mL Sufficient*Siri GHOSH. N Engl J Med. 2007;357:266-280There is no well-established upper level of normal vitamin Dlevels. Some laboratories use 50 ng/mL as an upper limit ofnormal. However, toxicity is patient-dependent and may occurat any level. Careful correlation with the patient'spresentation is necessary and, if there is concern forvitamin D toxicity, treatment should be consideredirrespective of the serum level.Care must be taken in interpreting Vitamin D results fromdifferent laboratories and methodologies. Published datademonstrated that results from patients undergoinghemodialysis may show a negative bias when tested withvarious automated 25-OH vitamin D assays when compared toLC-MS/MS.When testing samples from patients whose predominant form ofVitamin D is Vitamin D2, such as patients receiving VitaminD2 supplementation, results that are subtherapeutic shouldbe confirmed with another method such as LC-MS/MS. Blood Venous blood specimen / Unknown 12/13/2024 2:51 PM EDT 12/13/2024 5:23 PM EDT [facility] LAB BLOOD ORDERABLES Monica l Result Performing Organization Address [facility] Co de Phone Number [facility] [address] [place] [phone] * Rheumatoid Factor (12/13/2024 2:51 PM EDT) Pathologist [facility] Rheumatoid Factor <13.0 <15.0 IU/mL [facility] Blood Venous blood specimen / Unknown 12/13/2024 2:51 PM EDT 12/13/2024 5:23 PM EDT [facility] LAB BLOOD ORDERABLES Monica l Result Performing Organization Address [facility] Co de Phone Number [facility] [address] [place] [phone] * ABDI Screen,IFA, with Reflex to Titer and Pattern (12/13/2024 2:51 PM EDT) Pathologist [facility] Anti Nuclear Antibody Screen NEGATIVE NEGATIVE [facility] Comment:ABDI IFA is a first l ine screen for detecting thepresence of up to approximately 150 autoantibodies invarious autoimmune diseases. A negative ABDI IFA resultsuggests an ABDI-associated autoimmune disease is notpresent at this time, but is not definitive. If thereis high clinical suspicion for Sjogren's syndrome,testing for anti-SS-A/Ro antibody should be considered.Anti-Denise-1 antibody should be considered for clinicallysuspected inflammatory myopathies.AC-0: NegativeInternational Consensus on ABDI Patterns(https://doi.org/10.1515/fljp-7256-0673)For additional information, please refer tohttp://education.[employer]/faq/WXA977(This link is being provided for informational/educational purposes only.)THIS TEST WAS PERFORMED AT:[employer] [place] [id number] ALEX MD ABDI Titer TNP [facility] ABDI Pattern [facility] ABDI TITER 2 (REF LAB) [facility] ABDI Pattern 2 [facility] ABDI TITER 3 [facility] ABDI PATTERN 3 [facility] Blood Venous blood specimen / Unknown 12/13/2024 2:51 PM EDT 12/13/2024 5:23 PM EDT [facility] LAB BLOOD ORDERABLES Monica l Result [facility] [address] [place] [phone] * Hemoglobin A1c (12/13/2024 2:51 PM EDT) Hemoglobin A1c 5.0 <6.0 % [facility] Comment:Hemoglobin A1C Refer ence Range Adults: 4.8 - 6.0 % Non diabetic: < 6.0 % Goal: < 7.0 %Additional Action Suggested: > 8.0 %Note: Hemoglobin A1c results are invalid for patients with abnormal amounts of HbF. Blood transfusions may impact the HbA1c concentration in the patient sample. Estimated Average Glucose 97 mg/dL [facility] Comment:eAG = Estimated ave rage glucose which is %A1C expressed asaverage glucose, using the formula of the X2R-DfxvhmwEfsouwl Glucose study (ADAG), Diabetes Care, Vol.31,#8,Nov. 2007 Blood Venous blood specimen / Unknown 12/13/2024 2:51 PM EDT 12/13/2024 5:23 PM EDT [facility] LAB BLOOD ORDERABLES Monica l Result Performing Organization Address [facility] Co de Phone Number [facility] [address] [place] [address] [phone] * TSH W/Reflex to FT4 (11/22/2024 10:22 AM EDT) Pathologist [facility] TSH reflex Free T4 0.85 0.32 - 4.0 uIU/mL [facility] Blood Venous blood specimen / Unknown 11/22/2024 10:22 AM EDT 11/22/2024 11:37 AM EDT [facility] LAB BLOOD ORDERABLES Monica l Result Performing Organization Address [facility] Co de Phone Number [facility] [address] [place] [phone] * CBC auto differential (11/22/2024 10:22 AM EDT) Pathologist [facility] White Blood Count 5.1 4.8 - 10.8 X10*3/uL [facility] Red Blood Count 4.79 4.20 - 5.50 X10*6/uL [facility] Hemoglobin 14.4 12.0 - 16.0 g/dl [facility] Hematocrit 42.4 37.0 - 47.0 % [facility] Mean Corpuscular Volume 88.5 80.0 - 98.0 fL [facility] Mean Corpuscular Hemoglobin 30.1 27.0 - 33.0 pg [facility] Mean Corpuscular HGB Conc 34.0 31.0 - 35.0 g/dl [facility] Red Cell Distribution Width 12.3 11.0 - 16.0 % [facility] Platelet Count 245 160 - 400 X10*3/uL [facility] Mean Platelet Volume 10.8 9.4 - 12.3 fL [facility] Neutrophils Percent Auto 60.4 45 - 73 % [facility] Imm Gran Pct Auto 0.4 0.0 - 0.4 % [facility] Lymphocytes Percent Auto 31.1 20 - 40 % [facility] Monocytes Percent Auto 5.6 2 - 11 % [facility] Eosinophils Percent Auto 1.9 0 - 4 % [facility] Basophils Percent Auto 0.6 0 - 2 % [facility] NRBC Pct Auto 0.0 0.0 - 0.2 /100WBC [facility] Neutrophils Absolute Auto 3.1 2.0 - 8.3 x10*3/uL [facility] Imm Gran Abs Auto 0.02 0.00 - 0.03 X10*3/uL [facility] Lymphocytes Absolute Auto 1.6 1.2 - 4.9 X10*3/uL [facility] Monocytes Absolute Auto 0.3 0.1 - 1.2 X10*3/uL [facility] Eosinophils Absolute Auto 0.1 0.0 - 0.4 X10*3/uL [facility] Basophils Absolute Auto 0.0 0.0 - 0.2 X10*3/uL [facility] NRBC Abs Auto 0.000 0.0 - 0.012 X10*3/uL [facility] Blood Venous blood specimen / Unknown 11/22/2024 10:22 AM EDT 11/22/2024 11:37 AM EDT [facility] [employer] LAB BLOOD ORDERABLES Monica l Result [facility] [address] [place] [phone] * Hepatitis C Antibody with Reflex to HCV, RNA, Quantitative, Real-Time PCR (11/22/2024 10:22 AM EDT) Hepatitis C Antibody Nonreactive Nonreactive [facility] Comment:Antibodies to HCV no t detected; does not exclude early acuteHCV infection. Blood Venous blood specimen / Unknown 11/22/2024 10:22 AM EDT 11/22/2024 11:37 AM EDT [facility] LAB BLOOD ORDERABLES Monica l Result Performing Organization Address City/[facility]/ZIP Co de Phone Number [facility] [address] [place] [phone] * (ABNORMAL) Lupus Anticoagulant Evaluation with Reflex (11/22/2024 10:22 AM EDT) Lupus Interpretation see note [facility] Comment:A Lupus Anticoagulan t is not detected.Common causes for a prolonged screen and negativeconfirmatory test include factor deficiencies oranticoagulant therapy.Reference Range: Not DetectedFor additional information, please refer tohttp://education.[employer]/faq/KHU39f5(This link is being provided for informational/educational purposes only.)This interpretation is based on the following testresults. PTT (LAC) Screen 45(A) <=40 sec [facility] DRVVT Screen 33 <=45 sec [facility] dRVVT Confirmation TNP [facility] dRVVT 1:1 Mix TNP [facility] DRVVT 1:1 Mix Interpretation TNP [facility] Hexagonal Phase Neutralization Negative Negative [facility] Comment:THIS TEST WAS PERFOR MED AT:[employer] [place] [phone] BAEZ MD,PHD Thrombin Clotting Time TNP [facility] Blood Venous blood specimen / Unknown 11/22/2024 10:22 AM EDT 11/22/2024 11:37 AM EDT [facility] LAB BLOOD ORDERABLES Monica l Result Performing Organization Address [facility]/ZIP Co de Phone Number [facility] [address] [place] [phone] * HIV-1/2 Antigen and Antibodies, Fourth Generation, with Reflexes (11/22/2024 10:22 AM EDT) Pathologist [facility] HIV AB/AG Nonreactive Nonreactive [facility] Comment:HIV-1 p24 Ag and/or HIV-1/HIV-2 Ab not detected.A test result that is nonreactive does not exclude thepossibility of exposure to or infection with HIV-1 and/orHIV-2. Nonreactive results in this assay for individualswith prior exposure to HIV-1 and/or HIV-2 may be due toantigen and antibody levels that are below the limit ofdetection of this assay.The [employer] HIV Ag/Ab Combo assay result andsupplemental assay results should be interpreted inconjunction with the patient's clinical presentation,history and other laboratory results. If the results areinconsistent with clinical evidence, additional testing issuggested to confirm the result. Blood Venous blood specimen / Unknown 11/22/2024 10:22 AM EDT 11/22/2024 11:37 AM EDT [facility] LAB BLOOD ORDERABLES Monica l Result [facility] [address] [place] [phone] * Cardiolipin Antibodies (IgA,IgG,IgM) (11/22/2024 10:22 AM EDT) Cardiolipin Antibody (IgG) <2.0 GPL-U/mL [facility] Comment:Value Interpretation ----- < 20.0 Antibody not detected> or = 20.0 Antibody detected Cardiolipin Antibody (IgM) <2.0 MPL-U/mL [facility] Comment: Value Interpretation----- < 20.0 Antibody not detected> or = 20.0 Antibody detectedThe antiphospholipid antibody syndrome (APS) is aclinical- pathologic correlation that includes aclinical event (e.g. arterial or venous thrombosis, morbidity) and persistent positiveantiphospholipid antibodies (IgM, IgG Cardiolipin fbd8PBE antibodies greater than the 99th percentile; ora [...] therapy or aging.For additional information, please refer tohttp://education.[employer]/faq/DAG784(This link is being provided for informational/educational purposes only.)THIS TEST WAS PERFORMED AT:[employer] [place] [id number] ALEX MD Blood Venous blood specimen / Unknown 11/22/2024 10:22 AM EDT 11/22/2024 11:37 AM EDT [facility] LAB BLOOD ORDERABLES Monica l Result [facility] [address] [place] [phone] * Urinalysis w/reflex microscopic (11/22/2024 10:22 AM EDT) Color Urine Yellow [facility] Appearance Urine Turbid [facility] PH 5.5 5.0 - 9.0 [facility] Glucose Urine UA Negative Negative mg/dL [facility] Urine Blood Negative Negative [facility] Specific [place] - Urine 1.025 1.005 - 1.025 [facility] Urine Protein Negative Neg-Trace mg/dL [facility] Urine Ketones Trace Negative mg/dL [facility] Nitrite Urine Negative Negative [facility] Leukocyte Esterase Urine Negative Negative [facility] 11/22/2024 10:2 2 AM EDT 11/22/2024 11:12 AM EDT Narrative [facility] - 11/22/2024 11:28 AM EDT Urine, Clean Catch [facility] URINE ORDERABLES Monica l Result Performing Organization Address City/[facility]/ZIP Co de Phone Number [facility] [address] [place] [phone] * hCG, Total, Quantitative (11/22/2024 10:22 AM EDT) HCG Quantitative <2 mIU/mL [facility] Comment:Weeks post LMP Appro ximate hCG(Last Menstrual Period) Range (mIU/ml)3 - 4 weeks 9 - 1304 - 5 weeks 75 - 2,6005 - 6 weeks 850 - 20,8006 - 7 weeks 4000 - 100,2007 - 12 weeks 11,500 - 289,58436 - 16 weeks 18,300 - 137,92713 - 29 weeks (2nd trimester) 1,400 - 53,40572 - 41 weeks (3rd trimester) 940 - [...] 10:22 AM EDT 11/22/2024 11:37 AM EDT [facility] LAB BLOOD ORDERABLES Monica l Result Performing Organization Address City/[facility]/ZIP Co de Phone Number [facility] [address] [place] [phone] * Lipase (11/22/2024 10:22 AM EDT) Lipase 26 8 - 78 U/L [facility] Blood Venous blood specimen / Unknown 11/22/2024 10:22 AM EDT 11/22/2024 11:37 AM EDT [facility] [employer] LAB BLOOD ORDERABLES Monica l Result Performing Organization Address City/[facility]/ZIP Co de Phone Number [facility] [address] [place] [phone] * Amylase (11/22/2024 10:22 AM EDT) Amylase 98 28 - 100 U/L [facility] Blood Venous blood specimen / Unknown 11/22/2024 10:22 AM EDT 11/22/2024 11:37 AM EDT [facility] LAB BLOOD ORDERABLES Monica l Result Performing Organization Address [facility] Co de Phone Number [facility] [address] [place] [phone] [phone] * (ABNORMAL) Comprehensive Metabolic Panel (11/22/2024 10:22 AM EDT) Pathologist [facility] Sodium 139 135 - 145 mmol/L [facility] Potassium 3.9 3.3 - 5.1 mmol/L [facility] Chloride 107 96 - 108 mmol/L [facility] Carbon Dioxide 27 22 - 29 mmol/L [facility] Anion Gap 9(L) 12 - 20 [facility] Urea Nitrogen (BUN) 8(L) 9 - 16 mg/dL [facility] Creatinine, Serum 0.77 0.5 - 1.4 mg/dL [facility] Estimated Glomerular Filt Rate >60 [facility] Comment:Chronic Kidney Disea se: Estimated GFR < 60 mL/min/1.25d3Ecntdk Kidney Disease: Estimated GFR < 15 mL/min/1.73m2 Glucose 79 60 - 115 mg/dL [facility] Calcium 9.2 8.4 - 10.2 mg/dL [facility] Bilirubin, Total 0.6 0.0 - 1.0 mg/dL [facility] Aspartate Amino Transferase 21 5 - 31 U/L [facility] Alanine Aminotransferase 13 0 - 31 U/L [facility] Total Protein 8.6(H) 6.5 - 8.0 g/dL [facility] Albumin Level 5.1(H) 3.5 - 5.0 g/dL [facility] Alkaline Phosphatase 43 39 - 117 U/L [facility] Blood Venous blood specimen / Unknown 11/22/2024 10:22 AM EDT 11/22/2024 11:37 AM EDT [facility] LAB BLOOD ORDERABLES Monica l Result [facility] [address] [place] [phone] from Last 3 Months Insurance [place] AD[place] Care Teams Tobacco Conditioner Relationship Specialty Start Date End Date Jossy Villagomez CNP PCP - General Family Medicine 11/22/24
--- OUTSIDE RECORDS SUMMARY | 2025-01-20 17:15 | XMS_ITS | Encounter Summary ---
Author Organization [employer] Address [address] [facility] [address] [place] [address] Care Team Providers Care Accounting Assistant Name Role Phone Jamal Delgado Primary Care Provider Unavail Johanna Johnson VARITYPE OPERATOR Primary Care Provider [phone] Lenora Sands TENNIS DIRECTOR Primary Care Provider [phone] Jossy Villagomez REGIONAL ENGINEER Primary Care Provider [phone] Reason for Visit * Reason Onset Date Comments Med Refill 09/28/2022 Encounter Details Date Type Department Care Team (Late st Contact Info) Description 09/28/2022 Telephone [facility] MEDICINE [address] [place] [address] Jamal Delgado AGNP Med Refill Social History [...] requesting medication status. Please contact pt at [phone] * Telephone Encounter - Monika Rios LPN [...] Description 04/02/2025 2:00 PM EST Office Visit [facility] OPTOMETRY [address] [place] [address] Richard, Jacqui, OD [address] [place] [address] documented as of this encounter Visit Diagnoses Not on filedocumented in this encounter Care Teams Accounting Assistant Relationship Specialty Start Date End Date Jamal Delgado AGNP PCP - General Family Medicine 01/20/22 12/25/22 Johanna Messer FNP [address] [place] [address] PCP - General Family Medicine 12/26/22 10/11/23 Lenora Sands NP [address] [place] [address] PCP - General Family Medicine 10/12/23 11/21/24 Jossy Villagomez CNP [address] [place] [address] PCP - General Family Medicine 11/22/24 documented as of this encounter
== END 2025-01-20 14:53 | disposition home or self-care (01) ==
LOC: HO.US 14:52
DX: M54.41 Lumbago with sciatica, right side (principal); G89.29 Other chronic pain; N96 Recurrent pregnancy loss
CPT/HCPCS: 72100; 76830; 76856

== ENCOUNTER → 2025-01-20 15:03 | Outpatient (BNV) | payer MEDICAID, SELFPAY | PROVIDERS: Visit Provider Radiology Diagnostic Ultrasound | DX: M54.50 Low back pain, unspecified (principal); K56.41 Fecal impaction | CPT/HCPCS: 72100 ==

== ENCOUNTER → 2025-02-09 13:32 | Outpatient (BNV) | payer MEDICAID, SELFPAY | PROVIDERS: Visit Provider Radiology Diagnostic Radiology | DX: N83.202 Unspecified ovarian cyst, left side (principal) | CPT/HCPCS: 72197 ==

== ENCOUNTER 2025-02-09 13:33 | Outpatient (REF) | payer MEDICAID, SELFPAY ==
--- NOTE | ~2025-02-09 | MR_ITS ---
EXAMINATION: MR PELVIS WITHOUT THEN WITH IV CONTRAST HISTORY: PELVIC PAIN. TECHNIQUE: Axial T1, fat-suppressed T1, and fat suppressed T2, and sagittal and coronal T2-weighted MR images of the pelvis were obtained. Subsequently, sagittal and axial fat-suppressed T1-weighted images were obtained after the intravenous administration of 5.5 mL Gadavist. COMPARISON: Correlation is made with a pelvic ultrasound dated 01/20/2025. FINDINGS: The uterus measures approximately 8.1 x 4.6 x 5.5 cm. The multiple hyperechoic foci within the endometrial canal noted on ultrasound are not visualized. The junctional zone is not thickened. No fibroids are identified. The cervical stroma is intact. The right ovary measures 4.3 x 2.7 x 3.1 cm and demonstrates multiple follicles and a 2.2 x 2.1 x 1.9 cm simple cyst. The left ovary measures 4.3 x 2.1 x 2.2 cm and demonstrates multiple follicles and a 1.6 x 1.0 x 1.3 cm T1 and T2 hyperintense lesion which likely represents a hemorrhagic cyst. There is a small amount of free fluid in the pelvis. No lymphadenopathy is identified. The visualized bones demonstrate normal marrow signal intensity. MR/MR pelvis wo/w con IMPRESSION: 1. The echogenic masses within the endometrial canal noted on ultrasound are not visualized. Hysteroscopy is suggested. 2. 1.6 x 1.0 x 1.3 cm left ovarian hemorrhagic cyst. Electronically signed by: Sean Lin MD 02/10/2025 07:55 AM EDT
--- OUTSIDE RECORDS SUMMARY | 2025-02-09 13:42 | XMS_ITS | Encounter Summary ---
Author Organization [employer] Address [address] [facility] [address] [place] [address] Care Team Providers Care Circuit Board Drafter Name Role Phone Johanna Messer SCALE TESTER Primary Care Provider [phone] Lenora Sands IAP DISPLAYS ANALYST Primary Care Provider [phone] Jossy Villagomez TELEPHONE SERVICES SALES REPRESENTATIVE Primary Care Provider [phone] Encounter Details Date Type Department Care Team (Late Contact Info) Description 04/27/2023 Abstract [facility] MEDICINE [address] [place] [address] Johanna Messer FNP [address] [place] [address] Social History Tobacco Use Types Packs/Day Years [...] Description 04/02/2025 2:00 PM EST Office Visit [facility] OPTOMETRY [address] [place] [address] Jacqui Ramos OD [address] [place] [address] documented as of this encounter Visit Diagnoses Not on filedocumented in this encounter Care Teams Circuit Board Drafter Relationship Specialty Start Date End Date Johanna Messer FNP [address] [place] [address] PCP - General Family Medicine 12/26/22 10/11/23 Lenora Sands NP [address] [place] [address] PCP - General Family Medicine 10/12/23 11/21/24 Jossy Villagomez CNP [address] [place] [address] PCP - General Family Medicine 11/22/24 documented as of this encounter
--- OUTSIDE RECORDS SUMMARY | 2025-02-09 13:42 | XMS_ITS | Encounter Summary ---
Author Organization [employer] Address [address] [facility] [address] [place] [address] Care Team Providers Care Piece Work Inspector Name Role Phone Johanna Messer Primary Care Provider [phone] Lenora Sands FOOD STAND MANAGER Primary Care Provider [phone] Jossy Villagomez SHEET CUTTING OPERATOR Primary Care Provider [phone] Encounter Details Date Type Department Care Team (Late Contact Info) Description 04/25/2023 Orders Only [facility] MED & PEDS [address] [place] [address] Johanna Messer FNP [address] [place] [address] Social History Tobacco Use Types Packs/Day Years [...] Description 04/02/2025 2:00 PM EST Office Visit [facility] OPTOMETRY [address] [place] [address] Jacqui Ramos, OD [address] [place] [address] documented as of this encounter Visit Diagnoses Not on filedocumented in this encounter Care Teams Piece Work Inspector Relationship Specialty Start Date End Date Johanna Messer FNP [address] [place] [address] PCP - General Family Medicine 12/26/22 10/11/23 Lenora Sands NP [address] [place] [address] PCP - General Family Medicine 10/12/23 11/21/24 Jossy Villagomez CNP [address] [place] [address] PCP - General Family Medicine 11/22/24 documented as of this encounter
--- OUTSIDE RECORDS SUMMARY | 2025-02-09 13:42 | XMS_ITS | Encounter Summary ---
Author Organization [employer] Address [address] [facility] [address] [place] [address] Care Team Providers Care University Professor Name Role Phone Johanna Messer Primary Care Provider [phone] Lenora Sands FIBREGLASS GUN HAND Primary Care Provider [phone] Jossy Villagomez SKI PATROLLER Primary Care Provider [phone] Reason for Visit * Reason Onset Date Comments Results 04/24/2023 Encounter Details Date Type Department Care Team (Late st Contact Info) Description 04/24/2023 Telephone [facility] MEDICINE [address] [place], [place] [id number] Johanna Messer FNP [address] [place], [place] [id number] Results Social History Tobacco Use Types Packs/Day [...] PM EST T/C placed to pt via [employer] Athletic Agent Jitendra #[id number]. Advised pt H. Pylori stool not detected 04/12/23. Advised BMP shows lab needs to be collected. Pt agrees to complete lab order. Pt requesting referral for further testing as she is still experiencing nausea and is having difficulty eating despite trying to eat healthy foods. Pt requesting rx for Ondansetron originally rx in [facility]. States this was effective for nausea and famotidine did not improve her symptoms. Advised will forward requests to pcp for review. * Telephone Encounter - Fred Guerrero - 04/24/2023 2:51 PM EST TC from pt requesting call back regarding Results. Type of results: Lab works Date when done: 04/12/2023 Facility: [facility] documented in this encounter Plan of Treatment Upcoming Encounters Date Type Department Care Team (Late st Contact Info) Description 04/02/2025 2:00 PM EST Office Visit [facility] OPTOMETRY [address] [place] [address] Jacqui Ramos, OD [address] [place] [address] documented as of this encounter Visit Diagnoses Not on filedocumented in this encounter Care Teams University Professor Relationship Specialty Start Date End Date Johanna Messer FNP [address] [place] [address] PCP - General Family Medicine 12/26/22 10/11/23 Lenora Sands NP [address] [place] [address] PCP - General Family Medicine 10/12/23 11/21/24 Jossy Villagomez CNP [address] [place] [address] PCP - General Family Medicine 11/22/24 documented as of this encounter
--- OUTSIDE RECORDS SUMMARY | 2025-02-09 13:42 | XMS_ITS | Encounter Summary ---
Author Organization [employer] Address [address] [facility] [address] [place] [address] Care Team Providers Care Assistant Teacher Name Role Phone Jamal Delgado Primary Care Provider Unavail Johanna Johnson SUPERVISOR EDUCATION Primary Care Provider [phone] Lenora Sands PRICING/SIGNAGE TEAM MEMBER Primary Care Provider [phone] Jossy Villagomez SITE SAFETY COORDINATOR Primary Care Provider [phone] Reason for Visit * Reason Onset Date Comments Med Refill 09/28/2022 Encounter Details Date Type Department Care Team (Late st Contact Info) Description 09/28/2022 Telephone [facility] MEDICINE [address] [place] [address] Jamal Delgado AGNP Med Refill Social History [...] requesting medication status. Please contact pt at [phone] * Telephone Encounter - Monika Rios LPN [...] Description 04/02/2025 2:00 PM EST Office Visit [facility] OPTOMETRY [address] [place] [address] Richard, Jacqui, OD [address] [place] [address] documented as of this encounter Visit Diagnoses Not on filedocumented in this encounter Care Teams Assistant Teacher Relationship Specialty Start Date End Date Jamal Delgado AGNP PCP - General Family Medicine 01/20/22 12/25/22 Johanna Messer FNP [address] [place] [address] PCP - General Family Medicine 12/26/22 10/11/23 Lenora Sands NP [address] [place] [address] PCP - General Family Medicine 10/12/23 11/21/24 Jossy Villagomez CNP [address] [place] [address] PCP - General Family Medicine 11/22/24 documented as of this encounter
--- OUTSIDE RECORDS SUMMARY | 2025-02-09 13:43 | XMS_ITS | Clinical Summary ---
Author Organization [employer] Address [address] [facility] [address] [place] [address] Care Team Providers Care Decorator Lighting Fixtures Name Role Phone Jossy Villagomez JL Primary Care Provider [phone] Allergies Active Allergy Reactions Criticality Noted Date [...] different sleep medication rather than Zolpidem Rx Ramgrazynaeon Educated that it improves her sleep cycle and her bodies production of melatonin. 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 Allergic rhinitis 02/15/2012 Vitamin D deficiency 02/15/2012 Depressive disorder 02/15/2012 Encounters Date Type Department Care Team Description 01/22/2025 Orders Only [facility] [address] [place] [address] Jossy Villagomez CNP Pelvic pain (Primary Dx) 01/16/2025 Telephone [facility] [address] [place] [address] Jossy Villagomez CNP chart prep 12/18/2024 Telephone [facility] [address] [place] [address] Jossy Villagomez CNP chart prep 12/17/2024 Results Follow-Up [facility] [address] [place] [address] Jossy Villagomez CNP Rheumatoid Factor, Vitamin D, 25-Hydroxy, Total, Immunoassay 12/17/2024 Orders Only [facility] [address] [place] [address] Jossy Villagomez CNP Vitamin D deficiency (Primary Dx) 12/13/2024 2:00 PM EDT Office Visit [facility] [address] [place] [address] Jossy Villagomez CNP Chronic pain syndrome (Primary Dx); Epigastric pain; Chronic right-sided low back pain with right-sided sciatica; Hyperpigmentation; Ingrown hair; Healthcare maintenance; Pelvic pain 12/13/2024 Travel 12/13/2024 Telephone [facility] [address] [place] [address] Jossy Villagomez CNP chart prep 12/10/[address] [address] oJssy Villagomez CNP Call Back Request 12/10/[address] [address] Jossy Villagomez CNP Nurse Triage 12/02/2024 Results Follow-Up [facility] [address] [place] [phone] Jossy Villagomez CNP CBC auto differential, HIV-1/2 Antigen and Antibodies, Fourth Generation, with Reflexes, Hepatitis C Antibody with Reflex to HCV, RNA, Quantitative, Real-Time PCR, Additional followed-up results: 8 11/22/2024 9:15 AM EDT Office Visit [address] [address] Jossy Villagomez CNP Epigastric pain (Primary Dx); Recurrent loss 11/22/2024 Orders Only [address] [address] Jossy Villagomez CNP Ketonuria (Primary Dx) 11/22/2024 Orders Only [address] [address] Jossy Villagomez CNP 11/22/2024 Travel 11/21/[address] [address] Jossy Villagomez CNP Chart Prep 11/21/2024 Telephone [facility] [address] [place] [address] Lenora Sands NP Nurse Triage from Last 3 Months Immunizations [...] Description 04/02/2025 2:00 PM EST Office Visit [facility] [address] [place] [address] Richard, Jacqui, OD [address] [place] [address] Health Maintenance Due Date Last Done Comments [...] Screening 04/18/2025 04/18/2024 Dental X-Ray: Bitewings 05/01/2025 04/30/19, 02/10/2022, 07/04/2017, Additional history exists Depression Monitoring [...] Procedure Name Priority Date/Time Associated Diagnosis Comments XR LUMBAR SPINE 2-3 VIEWS Routine 01/22/2025 10:24 AM EDT Chronic right-sided low back pain with right-sided sciatica US PELVIS TRANSVAGINAL Routine 3:03 PM EDT Recurrent loss VITAMIN D,25-OH,TOTAL,IA [...] Recently Relevant to Health Maintenance Results * XR Lumbar Spine 2-3 Views (01/22/2025 10:24 AM EDT) Anatomical Region Laterality Modality Spine, L-spine Radiographic Grace ging 01/22/2025 10:2 4 AM EDT Narrative 01/22/2025 10:25 AM EDT [place] [address] XRay Report Signed Patient: Michael Rodas MR#: [id number] : 1990 Acct:[id number] Age/Sex: 34 / F ADM Date: 01/20/25 Loc: HO. Attending Dr: Jossy Villagomez DATA ANALYTICS ANALYST Ordering Physician: Jossy Villagomez NP Date of Service: 01/20/25 Procedure(s): XR lumbar spine 2-3V Accession Number(s): [id number] cc: Jossy Villagomez NP Reason for Exam: lower back pain that radiates down right leg CLINICAL HISTORY: lower back pain that radiates down right leg 3 views lumbar spine Comparison: None provided Findings: There is minimal retrolisthesis of L5 with respect to S1. Mild disc space narrowing at L5-S1. No acute fractures or dislocation. Moderate diffuse colonic fecal retention. IMPRESSION: Mild degenerative changes at L5-S1. Moderate diffuse colonic fecal retention. This document has been electronically signed by: Tommy Murphy MD on 01/22/2025 10:24:35 Dictated By: Tommy Murphy MD Signed By: <Electronically signed by Tommy Murphy MD in OV> 01/22/25 1024 DD/ 1024 TD/TT: 01/22/25 1024 Hand Spring Repairer Helper: Procedure Note [place], Image - 01/22/[address] [address] XRay Report Signed Patient: Michael RodasMR#: [id number] : 1990Acct:[id number] Age/Sex: 34 / FADM Date: 01/20/25 Loc: HO. Attending Dr: Jossy Villagomez DATA ANALYTICS ANALYST Ordering Physician: Jossy Villagomez NP Date of Service: 01/20/25 Procedure(s): XR lumbar spine 2-3V Accession Number(s): [id number] cc: Jossy Villagomez NP Reason for Exam: lower back pain that radiates down right leg CLINICAL HISTORY: lower back pain that radiates down right leg 3 views lumbar spine Comparison: None provided Findings: There is minimal retrolisthesis of L5 with respect to S1. Mild disc space narrowing at L5-S1. No acute fractures or dislocation. Moderate diffuse colonic fecal retention. IMPRESSION: Mild degenerative changes at L5-S1. Moderate diffuse colonic fecal retention. This document has been electronically signed by: Tommy Murphy MD on 01/22/2025 10:24:35 Dictated By: Tommy Murphy MD Signed By: <Electronically signed by Tommy Murphy MD in OV> 01/22/25 1024 DD/ 1024 TD/TT: 01/22/25 1024 Hand Spring Repairer Helper: Jossy Villagomez CREDIT DEPARTMENT MANAGER IMG XR PROCEDURES Final R esult * US Pelvis Transvaginal (01/20/2025 3:03 PM EDT) Anatomical Region Laterality Modality Pelvis Ultrasound 01/20/2025 3:03 PM EDT Narrative 01/20/2025 3:59 PM EDT [address] [address] Ultrasound Report Signed Patient: Michael Rodas MR#: [id number] : 1990 Acct:[id number] Age/Sex: 34 / F ADM Date: 01/20/25 Loc: HO.US Attending Dr: Jossy Villagomez NP Ordering Physician: Jossy Villagomez NP Date of Service: 01/20/25 Procedure(s): US pelvic and transvaginal Accession Number(s): [id number] cc: Jossy Villagomez NP Reason for Exam: [...] and without contrast Electronically signed by: Tej rTejo MD 01/20/2025 03:57 PM EDT Dictated By: Tej Trejo MD Signed By: <Electronically signed by Tej Trejo MD in OV> 01/20/25 1557 DD/ 1503 TD/TT: 01/20/25 1520 Hand Spring Repairer Helper: ALONDRA Procedure Note Donotuseinterpreter, Image - 01/20/2025 [place] [address] Ultrasound Report Signed Patient: Michael RodasMR#: [id number] : 1990Acct:[id number] Age/Sex: 34 / FADM Date: 01/20/25 Loc: HO.US Attending Dr: Jossy Villagomez NP Ordering Physician: Jossy Villagomez NP Date of Service: 01/20/25 Procedure(s): US pelvic and transvaginal Accession Number(s): [id number] cc: Jossy Villagomez NP Reason for Exam: [...] 01/20/25 1557 DD/ 1503 TD/TT: 01/20/25 1520 Hand Spring Repairer Helper: ALONDRA us Alexxis Villagomez CREDIT DEPARTMENT MANAGER IMG US PROCEDURES Final R esult * (ABNORMAL) Vitamin D, 25-Hydroxy, Total, Immunoassay (12/13/2024 2:51 PM EDT) Vitamin D 25-OH Total 22.5(L) >30 ng/mL [facility] Comment: Health Based Reference Values*< 20 ng/mL Hoqyhzgkx46-72 ng/mL Insufficient> 30 ng/mL Sufficient*Siri GHOSH. N [...] 2:51 PM EDT 12/13/2024 5:23 PM EDT [facility] LAB BLOOD ORDERABLES Monica l Result [facility] [address] [place] [address] [phone] * Rheumatoid Factor (12/13/2024 2:51 PM EDT) Pathologist [facility] Rheumatoid Factor <13.0 <15.0 IU/mL [facility] Blood Venous blood specimen / Unknown 12/13/2024 2:51 PM EDT 12/13/2024 5:23 PM EDT [facility] LAB BLOOD ORDERABLES Monica l Result Performing Organization Address [facility] Co de Phone Number [facility] [address] [place] [address] [phone] * ABDI Screen,IFA, with Reflex to Titer and Pattern (12/13/2024 2:51 PM EDT) Pathologist [facility] Anti Nuclear Antibody Screen NEGATIVE NEGATIVE [facility] Comment:ABDI IFA is a first [...] clinicallysuspected inflammatory myopathies.AC-0: NegativeInternational Consensus on ABDI Patterns(https://doi.org/10.1515/pbis-4118-6978)For additional information, please refer tohttp://education.[employer]/faq/AMW862(This link is being provided for informational/educational purposes only.)THIS TEST WAS PERFORMED AT:[employer] [place] [id number] ALEX MD ABDI Titer [facility] ABDI Pattern [facility] ABDI TITER 2 (REF LAB) [facility] ABDI Pattern 2 [facility] ABDI TITER 3 [facility] ABDI PATTERN 3 [facility] Blood Venous blood specimen / Unknown 12/13/2024 2:51 PM EDT 12/13/2024 5:23 PM EDT [facility] LAB BLOOD ORDERABLES Monica l Result Performing Organization Address City/[facility]/ZIP Co de Phone Number [facility] [address] [place] [phone] * Hemoglobin A1c (12/13/2024 2:51 PM EDT) Hemoglobin A1c 5.0 <6.0 % [facility] Comment:Hemoglobin A1C Refer ence Range Adults: 4.8 - 6.0 % Non diabetic: < 6.0 % Goal: < 7.0 %Additional Action Suggested: > 8.0 %Note: Hemoglobin A1c results are invalid for patients with abnormal amounts of HbF. Blood transfusions may impact the HbA1c concentration in the patient sample. Estimated Average Glucose 97 mg/dL [facility] Comment:eAG = Estimated ave rage glucose which is %A1C expressed asaverage glucose, using the formula of the X3S-FwgrfxmXbzzlae Glucose study (ADAG), Diabetes Care, Vol.31,#8,Nov. 2007 Blood Venous blood specimen / Unknown 12/13/2024 2:51 PM EDT 12/13/2024 5:23 PM EDT [facility] CREDIT DEPARTMENT MANAGER LAB BLOOD ORDERABLES Monica l Result Performing Organization Address City/[facility]/ZIP Co de Phone Number [facility] [address] [place] [address] [phone] * TSH W/Reflex to FT4 (11/22/2024 10:22 AM EDT) TSH reflex Free T4 0.85 0.32 - 4.0 uIU/mL [facility] Blood Venous blood specimen / Unknown 11/22/2024 10:22 AM EDT 11/22/2024 11:37 AM EDT Jossy Villagomez CREDIT DEPARTMENT MANAGER LAB BLOOD ORDERABLES Monica l Result [facility] [address] [place] [address] [phone] * CBC auto differential (11/22/2024 10:22 AM EDT) White Blood Count 5.1 4.8 - 10.8 X10*3/uL [facility] Red Blood Count 4.79 4.20 - 5.50 X10*6/uL [facility] Hemoglobin 14.4 12.0 - 16.0 g/dl [facility] Hematocrit 42.4 37.0 - 47.0 % [facility] Mean Corpuscular Volume 88.5 80.0 - 98.0 fL [facility] Mean Corpuscular Hemoglobin 30.1 27.0 - 33.0 pg [facility] Mean Corpuscular HGB Conc 34.0 31.0 - 35.0 g/dl [facility] Red Cell Distribution Width 12.3 11.0 - 16.0 % [facility] Platelet Count 245 160 - 400 X10*3/uL [facility] Mean Platelet Volume 10.8 9.4 - 12.3 fL [facility] Neutrophils Percent Auto 60.4 45 - 73 % [facility] Imm Gran Pct Auto 0.4 0.0 - 0.4 % [facility] Lymphocytes Percent Auto 31.1 20 - 40 % [facility] Monocytes Percent Auto 5.6 2 - 11 % [facility] Eosinophils Percent Auto 1.9 0 - 4 % [facility] Basophils Percent Auto 0.6 0 - 2 % [facility] NRBC Pct Auto 0.0 0.0 - 0.2 /100WBC [facility] Neutrophils Absolute Auto 3.1 2.0 - 8.3 x10*3/uL [facility] Imm Gran Abs Auto 0.02 0.00 - 0.03 X10*3/uL [facility] Lymphocytes Absolute Auto 1.6 1.2 - 4.9 X10*3/uL [facility] Monocytes Absolute Auto 0.3 0.1 - 1.2 X10*3/uL [facility] Eosinophils Absolute Auto 0.1 0.0 - 0.4 X10*3/uL [facility] Basophils Absolute Auto 0.0 0.0 - 0.2 X10*3/uL [facility] NRBC Abs Auto 0.000 0.0 - 0.012 X10*3/uL [facility] Blood Venous blood specimen / Unknown 11/22/2024 10:22 AM EDT 11/22/2024 11:37 AM EDT [facility] LAB BLOOD ORDERABLES Monica l Result Performing Organization Address [facility] Co de Phone Number [facility] [address] [place] [phone] * Hepatitis C Antibody with Reflex to HCV, RNA, Quantitative, Real-Time PCR (11/22/2024 10:22 AM EDT) Pathologist [facility] Hepatitis C Antibody Nonreactive Nonreactive [facility] Comment:Antibodies to HCV no t detected; does not exclude early acuteHCV infection. Blood Venous blood specimen / Unknown 11/22/2024 10:22 AM EDT 11/22/2024 11:37 AM EDT [facility] LAB BLOOD ORDERABLES Monica l Result Performing Organization Address [facility] Co de Phone Number [facility] [address] [place] [phone] * (ABNORMAL) Lupus Anticoagulant Evaluation with Reflex (11/22/2024 10:22 AM EDT) Pathologist [facility] Lupus Interpretation see note [facility] Comment:A Lupus Anticoagulan t is not detected.Common causes for a prolonged screen and negativeconfirmatory test include factor deficiencies oranticoagulant therapy.Reference Range: Not DetectedFor additional information, please refer tohttp://education.[employer]/faq/JNJ81e5(This link is being provided for informational/educational purposes only.)This interpretation is based on the following testresults. PTT (LAC) Screen 45(A) <=40 sec [facility] DRVVT Screen 33 <=45 sec [facility] dRVVT Confirmation TNP [facility] dRVVT 1:1 Mix TNP [facility] DRVVT 1:1 Mix Interpretation [facility] Hexagonal Phase Neutralization Negative Negative [facility] Comment:THIS TEST WAS PERFOR MED AT:[id number] [place] [id number] BAEZ MD,PHD Thrombin Clotting Time [facility] Blood Venous blood specimen / Unknown 11/22/2024 10:22 AM EDT 11/22/2024 11:37 AM EDT [facility] LAB BLOOD ORDERABLES Monica l Result [facility] [address] [place] [phone] * HIV-1/2 Antigen and Antibodies, Fourth Generation, with Reflexes (11/22/2024 10:22 AM EDT) HIV AB/AG Nonreactive Nonreactive [facility] Comment:HIV-1 p24 Ag and/or HIV-1/HIV-2 Ab not detected.A test result that is nonreactive does not exclude thepossibility of exposure to or infection with HIV-1 and/orHIV-2. Nonreactive results in this assay for individualswith prior exposure to HIV-1 and/or HIV-2 may be due toantigen and antibody levels that are below the limit ofdetection of this assay.The KLab HIV Ag/Ab Combo assay result andsupplemental assay results should be interpreted inconjunction with the patient's clinical presentation,history and other laboratory results. If the results areinconsistent with clinical evidence, additional testing issuggested to confirm the result. Blood Venous blood specimen / Unknown 11/22/2024 10:22 AM EDT 11/22/2024 11:37 AM EDT Jossy Villagomez [facility] LAB BLOOD ORDERABLES Monica ochoa Result [facility] [address] [place] [address] [phone] * Cardiolipin Antibodies (IgA,IgG,IgM) (11/22/2024 10:22 AM EDT) Cardiolipin Antibody (IgG) <2.0 GPL-U/mL [facility] Comment:Value Interpretation ----- < 20.0 Antibody not detected> or = 20.0 Antibody detected Cardiolipin Antibody (IgM) <2.0 MPL-U/mL [facility] Comment: Value Interpretation----- < 20.0 Antibody not detected> or = 20.0 Antibody detectedThe antiphospholipid antibody syndrome (APS) is aclinical- pathologic correlation that includes aclinical event (e.g. arterial or venous thrombosis, morbidity) and persistent positiveantiphospholipid antibodies (IgM, IgG Cardiolipin yty5IZO antibodies greater than the 99th percentile; ora [...] therapy or aging.For additional information, please refer tohttp://education.[employer]/faq/UCQ199(This link is being provided for informational/educational purposes only.)THIS TEST WAS PERFORMED AT:[facility] [id number] [place] [id number] ALEX MD Blood Venous blood specimen / Unknown 11/22/2024 10:22 AM EDT 11/22/2024 11:37 AM EDT [facility] LAB BLOOD ORDERABLES Monica l Result Performing Organization Address [facility] Co de Phone Number [facility] [address] [place] [phone] * Urinalysis w/reflex microscopic (11/22/2024 10:22 AM EDT) Color Urine Yellow [facility] Appearance Urine Turbid [facility] PH 5.5 5.0 - 9.0 [facility] Glucose Urine UA Negative Negative mg/dL [facility] Urine Blood Negative Negative [facility] Specific [place] - Urine 1.025 1.005 - 1.025 [facility] Urine Protein Negative Neg-Trace mg/dL [facility] Urine Ketones Trace Negative mg/dL [facility] Nitrite Urine Negative Negative [facility] Leukocyte Esterase Urine Negative Negative [facility] 11/22/2024 10:2 2 AM EDT 11/22/2024 11:12 AM EDT Narrative [facility] - 11/22/2024 11:28 AM EDT Urine, Clean Catch [facility] LAB URINE ORDERABLES Monica l Result Performing Organization Address [facility] Co de Phone Number [facility] [address] [place] [phone] * hCG, Total, Quantitative (11/22/2024 10:22 AM EDT) HCG Quantitative <2 mIU/mL [facility] Comment:Weeks post LMP Appro ximate hCG(Last Menstrual Period) Range (mIU/ml)3 - 4 weeks 9 - 1304 - 5 weeks 75 - 2,6005 - 6 weeks 850 - 20,8006 - 7 weeks 4000 - 100,2007 - 12 weeks 11,500 - 289,28755 - 16 weeks 18,300 - 137,61123 - 29 weeks (2nd trimester) 1,400 - 53,15848 - 41 weeks (3rd trimester) 940 - [...] 10:22 AM EDT 11/22/2024 11:37 AM EDT [facility] LAB BLOOD ORDERABLES Monica l Result Performing Organization Address City/[facility]/ZIP Co de Phone Number [facility] [address] [place] [phone] * Lipase (11/22/2024 10:22 AM EDT) Lipase 26 8 - 78 U/L [facility] Blood Venous blood specimen / Unknown 11/22/2024 10:22 AM EDT 11/22/2024 11:37 AM EDT [facility] LAB BLOOD ORDERABLES Monica l Result [facility] [address] [place] [phone] * Amylase (11/22/2024 10:22 AM EDT) Amylase 98 28 - 100 U/L [facility] Blood Venous blood specimen / Unknown 11/22/2024 10:22 AM EDT 11/22/2024 11:37 AM EDT [facility] LAB BLOOD ORDERABLES Monica l Result [facility] [address] [place] [phone] * (ABNORMAL) Comprehensive Metabolic Panel (11/22/2024 10:22 AM EDT) Sodium 139 135 - 145 mmol/L [facility] Potassium 3.9 3.3 - 5.1 mmol/L [facility] Chloride 107 96 - 108 mmol/L [facility] Carbon Dioxide 27 22 - 29 mmol/L [facility] Anion Gap 9(L) 12 - 20 [facility] Urea Nitrogen (BUN) 8(L) 9 - 16 mg/dL [facility] Creatinine, Serum 0.77 0.5 - 1.4 mg/dL [facility] Estimated Glomerular Filt Rate >60 [facility] Comment:Chronic Kidney Disea se: Estimated GFR < 60 mL/min/1.61t5Tqmkmd Kidney Disease: Estimated GFR < 15 mL/min/1.73m2 Glucose 79 60 - 115 mg/dL [facility] Calcium 9.2 8.4 - 10.2 mg/dL [facility] Bilirubin, Total 0.6 0.0 - 1.0 mg/dL [facility] Aspartate Amino Transferase 21 5 - 31 U/L [facility] Alanine Aminotransferase 13 0 - 31 U/L [facility] Total Protein 8.6(H) 6.5 - 8.0 g/dL [facility] Albumin Level 5.1(H) 3.5 - 5.0 g/dL [facility] Alkaline Phosphatase 43 39 - 117 U/L [facility] Blood Venous blood specimen / Unknown 11/22/2024 10:22 AM EDT 11/22/2024 11:37 AM EDT Guanakoconchis Villagomez [facility] BLOOD ORDERABLES Monica l Result Performing Organization Address City/[facility]/ZIP Co de Phone Number [facility] [address] [place] [address] [phone] from Last 3 Months Insurance [place] [facility] ST[facility] ADULT [address] [place] [address], [place] [address] Care Teams Decorator Lighting Fixtures Relationship Specialty Start Date End Date Jossy Villagomez CNP PCP - General Family Medicine 11/22/24
== END 2025-02-09 13:34 | disposition home or self-care (01) ==
LOC: HO.MRI 13:33
DX: R10.20 Pelvic and perineal pain unspecified side (principal)
CPT/HCPCS: 72197; A9585